=== PATIENT | male | born 1965 | race Two or more races ===

== ENCOUNTER 2018-10-28 13:18 | Inpatient (IN) | payer MEDICARE, MEDICAID ==
[~2018-10-28] VITALS: Ht 160 cm; Wt 60.8 kg
--- NOTE | 2018-10-28 13:37 | NUR ---
ED Nurse Note: patient biba from SNF c/o of dark red emesis, at time of arrival patient is not actively bleeding, also complains of 8/10 abdominal pain. patient is alert and oriented x4, states that he goes to dialysis MWF and hasnt gone for 2 days now.
[2018-10-28] MEDS ORDERED: Pantoprazole Inj IV ONE (13:45)
[2018-10-28 14:17] LABS: BASOPHILS % (AUTO) 1.7 % (0.0-2.0); EOSINOPHILS % (AUTO) 5.9 % (0.0-3.0); HEMOGLOBIN 10.4 G/DL (14.2-18.0); LYMPHOCYTES % (AUTO) 11.5 % (20.0-45.0); MEAN CORPUSCULAR VOLUME 92 FL (80-99); MONOCYTES % (AUTO) 10.3 % (1.0-10.0); NEUTROPHILS % (AUTO) 70.7 % (45.0-75.0); PLATELET COUNT 147 K/UL (150-450); RED BLOOD COUNT 3.56 M/UL (4.70-6.10); RED CELL DISTRIBUTION WIDTH 17.7 % (11.6-14.8); WHITE BLOOD COUNT 7.6 K/UL (4.8-10.8)
[2018-10-28 14:19] LABS: ANION GAP 10 mmol/L (5-15); BLOOD UREA NITROGEN 63 mg/dL (7-18); CALCIUM 8.8 MG/DL (8.5-10.1); CARBON DIOXIDE 30 MMOL/L (21-32); CHLORIDE 98 MMOL/L (98-107); CREATININE 4.8 MG/DL (0.55-1.30); POTASSIUM 4.4 MMOL/L (3.5-5.1); SODIUM 138 MMOL/L (136-145)
[2018-10-28 14:22] LABS: INR 1.3 (0.9-1.1)
[2018-10-28 14:32] LABS: ALANINE AMINOTRANSFERASE 39 U/L (12-78); ALBUMIN 2.9 G/DL (3.4-5.0); ALBUMIN/GLOBULIN RATIO 0.5 (1.0-2.7); ALKALINE PHOSPHATASE 1633 U/L (46-116); ASPARTATE AMINO TRANSFERASE 37 U/L (15-37); BILIRUBIN,TOTAL 1.7 MG/DL (0.2-1.0)
[2018-10-28 14:33] LABS: BILIRUBIN,DIRECT 1.4 MG/DL (0.0-0.3)
[2018-10-28 14:54] LABS: BILIRUBIN, URINE NEGATIVE (NEGATIVE); GLUCOSE, URINE (UA) NEGATIVE (NEGATIVE); KETONES,URINE NEGATIVE (NEGATIVE); LEUKOCYTE ESTERASE ,URINE 1+ (NEGATIVE); NITRITE,URINE NEGATIVE (NEGATIVE); PH,URINE 9 (4.5-8.0); PROTEIN,URINE 3+ (NEGATIVE); UROBILINOGEN,URINE NORMAL MG/DL (0.0-1.0)
--- NOTE | 2018-10-28 15:00 | Emergency Room Report ---
History of Present Illness General Chief Complaint: Vomiting Source: Patient, EMS Present Illness HPI 53 yo M presents to ED c/o vomiting. coming from SNF with coffee ground emesis x 1 day. h/o ESRD on dialysis. patient denies chest pain, SOB. Denies abdominal pain. denies blood in stool. no other aggravating or relieving factors. denies any other associated symptoms. Allergies: Coded Allergies: No Known Allergies (Unverified , 10/28/18) Patient History Past Medical History: DM, HTN, CVA/TIA, renal disease, dialysis Past Surgical History: none Pertinent Family History: none Social History: Denies: smoking, alcohol use, drug use Immunizations: UTD Reviewed Nursing Documentation: PMH: Agreed; PSxH: Agreed Nursing Documentation-PMH Hx Hypertension: Yes Hx Diabetes: Yes Hx Gastrointestinal Problems: Yes Hx Dialysis: Yes - mwf Hx Cerebrovascular Accident: Yes Review of Systems All Other Systems: negative except mentioned in HPI Physical Exam Vital Signs Date Time Temp Pulse Resp B/P (MAP) Pulse Ox O2 Delivery O2 Flow Rate FiO2 10/28/18 13:22 98.1 50 18 166/72 95 Room Air Sp02 EP Interpretation: reviewed, normal General Appearance: no apparent distress, alert, GCS 15, non-toxic Head: normocephalic, atraumatic Eyes: bilateral eye normal inspection, bilateral eye PERRL ENT: hearing grossly normal, normal pharynx, no angioedema, normal voice Neck: full range of motion, supple/symm/no masses Respiratory: chest non-tender, lungs clear, normal breath sounds, speaking full sentences Cardiovascular #1: regular rate, rhythm, no edema Cardiovascular #2: 2+ carotid (R), 2+ carotid (L), 2+ radial (R), 2+ radial (L) , 2+ dorsalis pedis (R), 2+ dorsalis pedis (L) Gastrointestinal: normal bowel sounds, soft, non-distended, no guarding, no rebound, distended Rectal: deferred Genitourinary: normal inspection, no CVA tenderness Musculoskeletal: back normal, gait/station normal, normal range of motion, non- tender Neurologic: alert, oriented x3, responsive, motor strength/tone normal, sensory intact, speech normal Psychiatric: judgement/insight normal, memory normal, mood/affect normal, no suicidal/homicidal ideation Reflexes: 3+ bicep (R), 3+ bicep (L), 3+ tricep (R), 3+ tricep (L), 3+ knee (R) , 3+ knee (L) Skin: normal color, no rash, warm/dry, well hydrated Lymphatic: no adenopathy Medical Decision Making Diagnostic Impression: Primary Impression: UGIB (upper gastrointestinal bleed) Additional Impression: ESRD on dialysis ER Course Hospital Course 53 year-old M presents to ED with coffee ground emesis. h/o ERSD Differential diagnoses include: UGIB, LGIB, hemorrhoids Clinical course Patient placed on stretcher. gambling monitor. After initial history and physical I ordered labs, EKG, zofran, protonix Labs - no leukocytosis, Hb/Hct stable. BUN/Cr elevated. EKG - sinus bradycardia, no acute ischemic changes interpreted by me given small IVF bolus. no additonal episodes of emesis here Case discussed with Dr. Ruvalcaba and he agreed to accept the patient to his service for further care and support I feel this is a highly complex case requiring extensive working including EKG/ Rhythm strip, Xray/CT/US, Blood/urine lab work, repeat exams while in ED, and administration of strong opiates/narcotics for pain control, admission to hospital or close patient follow up. Diagnosis - UGIB, ESRD on dialysis Patient admitted to telemetry in serious condition Labs Test 10/28/18 13:45 10/28/18 14:20 White Blood Count 7.6 K/UL (4.8-10.8) Red Blood Count 3.56 M/UL (4.70-6.10) Hemoglobin 10.4 G/DL (14.2-18.0) Hematocrit 33.0 % (42.0-52.0) Mean Corpuscular Volume 92 FL (80-99) Mean Corpuscular Hemoglobin 29.2 PG (27.0-31.0) Mean Corpuscular Hemoglobin Concent 31.6 G/DL (32.0-36.0) Red Cell Distribution Width 17.7 % (11.6-14.8) Platelet Count 147 K/UL (150-450) Mean Platelet Volume 8.3 FL (6.5-10.1) Neutrophils (%) (Auto) 70.7 % (45.0-75.0) Lymphocytes (%) (Auto) 11.5 % (20.0-45.0) Monocytes (%) (Auto) 10.3 % (1.0-10.0) Eosinophils (%) (Auto) 5.9 % (0.0-3.0) Basophils (%) (Auto) 1.7 % (0.0-2.0) Prothrombin Time 13.5 SEC (9.30-11.50) Prothromb Time International Ratio 1.3 (0.9-1.1) Activated Partial Thromboplast Time 35 SEC (23-33) Sodium Level 138 MMOL/L (136-145) Potassium Level 4.4 MMOL/L (3.5-5.1) Chloride Level 98 MMOL/L (98-107) Carbon Dioxide Level 30 MMOL/L (21-32) Anion Gap 10 mmol/L (5-15) Blood Urea Nitrogen 63 mg/dL (7-18) Creatinine 4.8 MG/DL (0.55-1.30) Estimat Glomerular Filtration Rate 15.5 mL/min (>60) Glucose Level 222 MG/DL (74-106) Calcium Level 8.8 MG/DL (8.5-10.1) Total Bilirubin 1.7 MG/DL (0.2-1.0) Direct Bilirubin 1.4 MG/DL (0.0-0.3) Aspartate Amino Transf (AST/SGOT) 37 U/L (15-37) Alanine Aminotransferase (ALT/SGPT) 39 U/L (12-78) Alkaline Phosphatase 1633 U/L (46-116) Total Protein 8.2 G/DL (6.4-8.2) Albumin 2.9 G/DL (3.4-5.0) Globulin 5.3 g/dL Albumin/Globulin Ratio 0.5 (1.0-2.7) Lipase 59 U/L (73-393) EKG Diagnostic Results Rate: bradycardiac Rhythm: NSR ST Segments: no acute changes ASA given to the pt in ED: No Rhythm Strip Diag. Results EP Interpretation: yes Rhythm: NSR, no PVC's, no ectopy Last Vital Signs Date Time Temp Pulse Resp B/P (MAP) Pulse Ox O2 Delivery O2 Flow Rate FiO2 10/28/18 13:22 98.1 50 18 166/72 95 Room Air Status: improved Disposition: ADMITTED INPATIENT Condition: Serious Referrals: Ruvalcaba,Tay MD (PCP) Benedicto Merrill MD Oct 28, 2018 15:00
[2018-10-28 15:02] LABS: APPEARANCE,URINE SLIGHTLY CLOUDY; COLOR,URINE YELLOW
[2018-10-28 15:29] VITALS: BP 126/60
--- NOTE | 2018-10-28 15:30 | NUR ---
ED Nurse Note: report given to SpenserRN
--- NOTE | 2018-10-28 15:35 | NUR ---
NURSE NOTES: Received report from CHASE Weaver from ED. And asked for Meds recon.
--- NOTE | 2018-10-28 15:55 | NUR ---
NURSE NOTES: Patient is transferred from ED. Patient is in stable condition. Alert and oriented X4. No acute distress/SOB noted. Patient complains of ABD pain 3/10. Left hand dry scabs noted. Otherwise skin intact. Will continue plan of care.
[2018-10-28 16:00] VITALS: BP 132/65
--- NOTE | 2018-10-28 16:10 | NUR ---
NURSE NOTES: Meds recon has not done at ED.
--- NOTE | 2018-10-28 16:10 | GI Initial Consult Note ---
History of Present Illness General Date patient seen: Oct 28, 2018 Time patient seen: 16:04 Reason for Hospitalization: Vomiting Referring physician: GRISELDA MELENDEZ Reason for Consultation: UGIB Present Illness HPI 53 yo M presents to ED c/o vomiting. coming from SNF with coffee ground emesis x 1 day. h/o ESRD on dialysis. patient denies chest pain, SOB. Denies abdominal pain. denies blood in stool. no other aggravating or relieving factors. denies any other associated symptoms. GI consulted for upper GI bleed patient seen, awake alert and oriented times x 4 no apparent distress. Patient reported that he had a few episodes of emesis which he noted as coffee grounds and also bright red. The patient has a history of cerebral infarction, hypertension, end-stage renal disease, diabetes mellitus, chronic pain syndrome, muscle weakness generalized, GERD, esophagitis and hyperlipidemia. Patient presents today with reported upper GI bleed. Noted at the patient has severe abdominal distention. Labs reviewed; noted to have a normocytic anemia, hyperbilirubinemia and elevated alkaline phosphatase. Unknown history of endoscopic colonoscopy at this time. Allergies: Coded Allergies: No Known Allergies (Unverified , 10/28/18) Patient History Limited by: medical condition History Provided By: Patient, Medical Record PMH Narrative Past Medical History: DM, HTN, CVA/TIA, renal disease, dialysis Past Surgical History: none Pertinent Family History: none Social History: Denies: smoking, alcohol use, drug use Immunizations: UTD Reviewed Nursing Documentation: PMH: Agreed; PSxH: Agreed Nursing Documentation-PMH Hx Hypertension: Yes Hx Diabetes: Yes Hx Gastrointestinal Problems: Yes Hx Dialysis: Yes - [facility] Hx Cerebrovascular Accident: Yes Social History: Denies: smoking, alcohol use, drug use, other Review of Systems All Other Systems: negative except mentioned in HPI Physical Exam Vital Signs Date Time Temp Pulse Resp B/P (MAP) Pulse Ox O2 Delivery O2 Flow Rate FiO2 10/28/18 13:22 98.1 50 18 166/72 95 Room Air Sp02 EP Interpretation: reviewed, normal Labs Laboratory Tests Test 10/28/18 13:45 10/28/18 14:20 White Blood Count 7.6 K/UL (4.8-10.8) Red Blood Count 3.56 M/UL (4.70-6.10) L Hemoglobin 10.4 G/DL (14.2-18.0) L Hematocrit 33.0 % (42.0-52.0) L Mean Corpuscular Volume 92 FL (80-99) Mean Corpuscular Hemoglobin 29.2 PG (27.0-31.0) Mean Corpuscular Hemoglobin Concent 31.6 G/DL (32.0-36.0) L Red Cell Distribution Width 17.7 % (11.6-14.8) H Platelet Count 147 K/UL (150-450) L Mean Platelet Volume 8.3 FL (6.5-10.1) Neutrophils (%) (Auto) 70.7 % (45.0-75.0) Lymphocytes (%) (Auto) 11.5 % (20.0-45.0) L Monocytes (%) (Auto) 10.3 % (1.0-10.0) H Eosinophils (%) (Auto) 5.9 % (0.0-3.0) H Basophils (%) (Auto) 1.7 % (0.0-2.0) Prothrombin Time 13.5 SEC (9.30-11.50) H Prothromb Time International Ratio 1.3 (0.9-1.1) H Activated Partial Thromboplast Time 35 SEC (23-33) H Sodium Level 138 MMOL/L (136-145) Potassium Level 4.4 MMOL/L (3.5-5.1) Chloride Level 98 MMOL/L (98-107) Carbon Dioxide Level 30 MMOL/L (21-32) Anion Gap 10 mmol/L (5-15) Blood Urea Nitrogen 63 mg/dL (7-18) H Creatinine 4.8 MG/DL (0.55-1.30) H Estimat Glomerular Filtration Rate 15.5 mL/min (>60) Glucose Level 222 MG/DL (74-106) H Calcium Level 8.8 MG/DL (8.5-10.1) Total Bilirubin 1.7 MG/DL (0.2-1.0) H Direct Bilirubin 1.4 MG/DL (0.0-0.3) H Aspartate Amino Transf (AST/SGOT) 37 U/L (15-37) Alanine Aminotransferase (ALT/SGPT) 39 U/L (12-78) Alkaline Phosphatase 1633 U/L (46-116) H Total Protein 8.2 G/DL (6.4-8.2) Albumin 2.9 G/DL (3.4-5.0) L Globulin 5.3 g/dL Albumin/Globulin Ratio 0.5 (1.0-2.7) L Lipase 59 U/L (73-393) L Urine Color Yellow Urine Appearance Slightly cloudy Urine pH 9 (4.5-8.0) Urine Specific [place] 1.015 (1.005-1.035) Urine Protein 3+ (NEGATIVE) H Urine Glucose (UA) Negative (NEGATIVE) Urine Ketones Negative (NEGATIVE) Urine Blood Negative (NEGATIVE) Urine Nitrite Negative (NEGATIVE) Urine Bilirubin Negative (NEGATIVE) Urine Urobilinogen Normal MG/DL (0.0-1.0) Urine Leukocyte Esterase 1+ (NEGATIVE) H Urine RBC 0-2 /HPF (0 - 0) H Urine WBC 2-4 /HPF (0 - 0) Urine Squamous Epithelial Cells Occasional /LPF Urine Bacteria Few /HPF (NONE) General Appearance: well appearing, no apparent distress, alert Head: normocephalic EENT: PERRL/EOMI, normal ENT inspection Neck: supple Respiratory: normal breath sounds, no respiratory distress Cardiovascular: normal rate Gastrointestinal: normal inspection, non tender, soft, normal bowel sounds, distended Rectal: deferred Genitourinary: deferred Musculoskeletal: normal inspection, back normal Neurologic: normal inspection, alert, oriented x3, responsive Psychiatric: normal inspection, judgement/insight normal, memory normal Skin: normal inspection, normal color, no rash, warm/dry, palpation normal, well hydrated Lymphatic: normal inspection, no adenopathy GI: Plan Problems: (1) Abdominal distension (2) UGIB (upper gastrointestinal bleed) (3) Anemia (4) ESRD on dialysis Plan EGD to be scheduled tomorrow. -Hold all blood thinners tonight Maintain n.p.o. plus mild IV fluid hydration Obtain abdominal ultrasound anemia work up OB stool r/o GI bleed monitor H&H, prn transfusions bowel regime ppi fu labs We will follow with additional recommendations post procedure Discussed with Dr. Don. Thank you for this patient referral, we will follow. Reji Sherman NP Oct 28, 2018 16:10
[2018-10-28] MEDS ORDERED: Isovue-300 100ml vial INJ PRN (16:15)
[2018-10-28] MEDS ORDERED: Gastrograffin 30ml ORAL PRN (16:15)
[2018-10-28] MEDS ORDERED: ACETAMINOPHEN325 M1 ORAL (16:17)
[2018-10-28] MEDS ORDERED: CAPTOPRIL50 MG PO (16:18)
[2018-10-28] MEDS ORDERED: COREG25 MG ORAL (16:19)
[2018-10-28] MEDS ORDERED: LANTUS5 UNITS SUBQ (16:30)
[2018-10-28] MEDS ORDERED: SIMVASTATIN20 MG ORAL (16:30)
[2018-10-28] MEDS ORDERED: ELIQUIS2.5 MG PO (16:30)
[2018-10-28] MEDS ORDERED: COLACE100 MG/10 ORAL (16:30)
[2018-10-28] MEDS ORDERED: FAMOTIDINE20 MG ORAL (16:30)
[2018-10-28] MEDS ORDERED: NEURONTIN300 MG ORAL (16:30)
[2018-10-28] MEDS ORDERED: LOSARTAN POTAS100 MG ORAL (16:30)
[2018-10-28] MEDS ORDERED: RENAGEL800 MG ORAL (16:30)
[2018-10-28] MEDS ORDERED: NEOMYCIN SULFA500 MG ORAL (16:30)
[2018-10-28] MEDS ORDERED: LYRICA50 MG ORAL (16:30)
[2018-10-28] MEDS ORDERED: NIFEDIPINE ER90 M3 ORAL (16:30)
[2018-10-28] MEDS ORDERED: FERROUS SULFAT325 M2 ORAL (16:30)
[2018-10-28] MEDS ORDERED: METOLAZONE5 MG PO (16:30)
[2018-10-28] MEDS ORDERED: RENA-VITE TABL0.8 M1 PO (16:30)
[2018-10-28] MEDS ORDERED: TRAMADOL HCL50 MG ORAL (16:30)
[2018-10-28] MEDS ORDERED: HUMALOG100 UNIT/3 SUBQ (16:30)
--- NOTE | 2018-10-28 16:42 | NUR ---
NURSE NOTES: Received admission orders from Dr. Ruvalcaba.
--- NOTE | 2018-10-28 16:58 | NUR ---
NURSE NOTES: Seen by Dr. Fong.
[2018-10-28] MEDS ORDERED: Albuterol/Ipratropium 3ml neb HHN PRN (17:00)
[2018-10-28] MEDS ORDERED: traMADol 50mg tab ORAL PRN (17:00)
--- NOTE | 2018-10-28 17:08 | Consultation ---
Consult Note Consult Note asked to eval for dialysis management 53 yo M presents to ED c/o vomiting. coming from SNF with coffee ground emesis x 1 day. h/o ESRD on dialysis. patient denies chest pain, SOB. Denies abdominal pain. denies blood in stool. no other aggravating or relieving factors. denies any other associated symptoms. No Known Allergies (Unverified , 10/28/18) Past Medical History: DM, HTN, CVA/TIA, renal disease, dialysis Hx Hypertension: Yes Hx Diabetes: Yes Hx Gastrointestinal Problems: Yes Hx Dialysis: Yes - [facility]wf Hx Cerebrovascular Accident: Yes interviewed examined data reviewed Assessment/Plan ESRD Upper GI Bleed Abdominal distension DM HTN Anemia h/o CVA Bradycardia per GI NPO IV Protonix, Reglan Monitor H&H no need for HD today Stop HR lowering meds per orders Eliazar Fong MD Oct 28, 2018 17:08
[2018-10-28] MEDS: Neomycin Sulfate 500mg Tab ORAL SCH (17:59)
[2018-10-28] MEDS: Lyrica 50mg cap ORAL SCH (17:59)
[2018-10-28] MEDS ORDERED: Captopril 25mg tab ORAL SCH (18:00)
[2018-10-28] MEDS ORDERED: Metoclopramide 10mg/2ml Inj IVP PRN (19:15)
--- NOTE | 2018-10-28 19:16 | NUR ---
HAND-OFF: Report given to CHASE Corea. Patient is in stable condition. No acute distress/SOB noted. Endorsed plan of care.
--- NOTE | 2018-10-28 19:20 | NUR ---
NURSE NOTES: Received report from CHASE Warner. Patient awake, alert and verbally responsive. No SOB, no acute distress, c/o pain on abd area 2/10, tolerable per pt. IV site on R AC #20, patent and intact. HD access at L arm, dry and intact, no bleeding noted. Bed at lowest position, call light within reach. Will continue plan of care.
[2018-10-28] MEDS: D5 1/2NS 1,000 ML IV SCH (19:46)
[2018-10-28 20:00] VITALS: BP 144/65
[2018-10-28] MEDS: Pantoprazole Inj IVP SCH (20:30)
[2018-10-28] MEDS: NovoLOG Insulin Flexpen SUBQ SCH (20:30)
[2018-10-28] MEDS ORDERED: Carvedilol 25mg Tab ORAL SCH (21:00)
[2018-10-28] MEDS ORDERED: Levemir Flexpen SUBQ SCH (21:00)
[2018-10-29] VITALS: BP 139/68
--- NOTE | 2018-10-29 03:54 | NUR ---
NURSE NOTES: Patient asleep, breathing even and unlabored, no s/sx of pain nor any discomfort at this time. No episodes of vomiting/nausea noted at this time. Bed at lowest position, call light within reach. Will continue to monitor.
[2018-10-29] MEDS: NovoLOG Insulin Flexpen SUBQ SCH ×4 (06:17→21:31)
[2018-10-29 06:52] LABS: INR 1.3 (0.9-1.1)
[2018-10-29 07:02] LABS: BASOPHILS % (AUTO) 1.1 % (0.0-2.0); EOSINOPHILS % (AUTO) 11.8 % (0.0-3.0); HEMATOCRIT 28.7 % (42.0-52.0); HEMOGLOBIN 9.2 G/DL (14.2-18.0); LYMPHOCYTES % (AUTO) 19.9 % (20.0-45.0); MEAN CORPUSCULAR VOLUME 92 FL (80-99); MONOCYTES % (AUTO) 5.6 % (1.0-10.0); NEUTROPHILS % (AUTO) 61.6 % (45.0-75.0); PLATELET COUNT 152 K/UL (150-450); RED BLOOD COUNT 3.13 M/UL (4.70-6.10); RED CELL DISTRIBUTION WIDTH 17.6 % (11.6-14.8); WHITE BLOOD COUNT 6.1 K/UL (4.8-10.8)
--- NOTE | 2018-10-29 07:10 | NUR ---
HAND-OFF: Report given to CHASE Warner. Endorsed plan of care.
--- NOTE | 2018-10-29 07:11 | NUR ---
NURSE NOTES: Received report from CHASE Corea. Patient is in stable condition. No acute distress/SOB noted. Patient still have abd pain 2/10 which is tolerable. Will continue plan of care.
[2018-10-29 07:55] LABS: ALANINE AMINOTRANSFERASE 33 U/L (12-78); ALBUMIN 2.7 G/DL (3.4-5.0); ALBUMIN/GLOBULIN RATIO 0.6 (1.0-2.7); ALKALINE PHOSPHATASE 1393 U/L (46-116); ANION GAP 10 mmol/L (5-15); ASPARTATE AMINO TRANSFERASE 32 U/L (15-37); BILIRUBIN,TOTAL 1.6 MG/DL (0.2-1.0); BLOOD UREA NITROGEN 69 mg/dL (7-18); CALCIUM 8.7 MG/DL (8.5-10.1); CARBON DIOXIDE 27 MMOL/L (21-32); CHLORIDE 100 MMOL/L (98-107); CHOLESTEROL 115 MG/DL (< 200); CREATININE 4.8 MG/DL (0.55-1.30); HDL CHOLESTEROL 25 MG/DL (40-60); PHOSPHORUS 5.9 MG/DL (2.5-4.9); POTASSIUM 5.2 MMOL/L (3.5-5.1); SODIUM 137 MMOL/L (136-145); TRIGLYCERIDES 63 MG/DL (30-150)
[2018-10-29 07:56] LABS: BILIRUBIN,DIRECT 1.2 MG/DL (0.0-0.3)
[2018-10-29 08:00] VITALS: BP 172/71
[2018-10-29] MEDS: Lyrica 50mg cap ORAL SCH ×3 (08:21→17:09)
[2018-10-29] MEDS: Pantoprazole Inj IVP SCH ×2 (08:21→21:30)
[2018-10-29] MEDS: Neomycin Sulfate 500mg Tab ORAL SCH ×3 (08:22→17:09)
[2018-10-29] MEDS: Losartan 50mg tab ORAL SCH (08:22)
[2018-10-29] MEDS: Docusate 100mg cap ORAL SCH ×3 (08:23→17:09)
[2018-10-29] MEDS ORDERED: Sodium Polystyrene Sulfonate 15gm Powder ORAL SCH (08:30)
[2018-10-29 08:53] LABS: % IRON SATURATION 29 % (15-50); IRON 47 ug/dL (50-175); TOTAL IRON BINDING CAPACITY 162 ug/dL (250-450)
--- NOTE | 2018-10-29 08:59 | History and Physical Report ---
DATE OF ADMISSION: 10/28/2018 HISTORY OF PRESENT ILLNESS: This is a 53-year-old male, who came to the emergency room for having a coffee-grounds emesis and having melena for 2 days prior to admission. The patient is still feeling a [id number] abdominal pain and mild nausea but has been tolerating the diet. He has no fever or chills. PAST MEDICAL HISTORY: Significant for end-stage renal disease, hypertension, borderline diabetes, peripheral vascular disease, generalized weakness. MEDICATIONS: See the list. ALLERGY: NKA. FAMILY HISTORY: Noncontributory. SOCIAL HISTORY: The patient lives at shelter, mostly wheelchair bound. REVIEW OF SYSTEMS: Generalized weakness, recurrent abdominal pain and recurrent nausea and vomiting, generalized weakness, having mild leg edema. PHYSICAL EXAMINATION: GENERAL: This is an elderly male, who is sitting in the bed, feels okay, still complaining of mild abdominal pain intermittently. VITAL SIGNS: Blood pressure is 120/70; pulse 80; respirations 18 to 24; temperature, no fever; saturation 98%. SKIN: Diaphoretic. HEENT: NECK: No JVD. CHEST: Bilateral decreased breath sounds. Few crackles. CARDIOVASCULAR: Regular rhythm tachycardia. ABDOMEN: Soft. Positive bowel sounds. Nontender. Abdomen was distended and right upper quadrant tenderness. EXTREMITIES: A 1+ edema and flat foot. GENITOURINARY: Normal developed male. RECTAL: Done in the ER. LABORATORY AND DIAGNOSTIC DATA: Labs; white counts are normal. Hemoglobin 10, hematocrit 30, platelets are normal. Chemistry panel, BUN, and creatinine is elevated, glucose is borderline, and LFTs are high. Bilirubin is 1.7. ASSESSMENT: 1. Upper gastrointestinal bleed. 2. Melena. 3. Hematemesis. 4. End-stage renal disease. 5. Anemia. 6. Elevated LFTs. PLAN: 1. We will admit to telemetry bed. 2. Consider GI consult. 3. Also consider Nephrology consult for hemodialysis. 4. Monitor H and H. 5. Check stool occult blood 6. Alvaro Ruvalcaba M.D. DR: Candace JOB#: [id number] CC:
[2018-10-29] MEDS ORDERED: Docusate 100mg cap ORAL SCH (09:00)
[2018-10-29] MEDS ORDERED: Losartan 50mg tab ORAL SCH (09:00)
[2018-10-29] MEDS ORDERED: Pantoprazole Inj IVP SCH (09:00)
[2018-10-29] MEDS ORDERED: Nephrovite tab (Rena-Vite) ORAL SCH (09:00)
[2018-10-29 09:16] LABS: FERRITIN 1634 NG/ML (8-388)
[2018-10-29] MEDS ORDERED: Atropine Inj 1mg/10ml Syr IV PRN (09:30)
[2018-10-29] MEDS ORDERED: fentaNYL 100 mcg/2 mL IV PRN (09:30)
[2018-10-29] MEDS ORDERED: Midazolam 2mg/2ml Inj IVP PRN (09:30)
[2018-10-29] MEDS ORDERED: DiphenhydrAMINE 50mg/ml Inj IVP PRN (09:30)
--- NOTE | 2018-10-29 09:45 | Anethesia Preoperative Eval ---
Anesthesia Pre-op PMH/ROS General Date of Evaluation: Oct 29, 2018 Time of Evaluation: 09:37 Anesthesiologist: allison ASA Score: ASA 4 Mallampati Score Class I : Soft palate, uvula, fauces, pillars visible Class II: Soft palate, uvula, fauces visible Class III: Soft palate, base of uvula visible Class IV: Only hard plate visible Surgeon: fatuma Diagnosis: upper gi bleed Surgical Procedure: egd Anesthesia History: none Social History: current smoker Family History: no anesthesia problems Allergies: Coded Allergies: No Known Allergies (Unverified , 10/28/18) Medications: see eMAR Patient NPO?: Yes NPO Date: Oct 29, 2018 NPO Time: 07:30 Past Medical History Gastrointestinal/Genitourinary: Reports: ESRD, other - upper gi bleed, dialysis Neurologic/Psychiatric: Reports: CVA Endocrine: Reports: DM Anesthesia Pre-op Phys. Exam Physician Exam Last Vital Signs Date Time Temp Pulse Resp B/P (MAP) Pulse Ox O2 Delivery O2 Flow Rate FiO2 10/29/18 09:00 Room Air 10/29/18 08:22 52 172/71 10/29/18 08:00 97.7 20 93 10/28/18 20:27 21 Airway Exam MO: limited Neck: flexible TMD: 2fb ROM: limited Anesthesia Pre-op A/P Labs Hematology Test 10/28/18 13:45 10/29/18 06:00 White Blood Count 7.6 K/UL (4.8-10.8) 6.1 K/UL (4.8-10.8) Red Blood Count 3.56 M/UL (4.70-6.10) L 3.13 M/UL (4.70-6.10) L Hemoglobin 10.4 G/DL (14.2-18.0) L 9.2 G/DL (14.2-18.0) L Hematocrit 33.0 % (42.0-52.0) L 28.7 % (42.0-52.0) L Mean Corpuscular Volume 92 FL (80-99) 92 FL (80-99) Mean Corpuscular Hemoglobin 29.2 PG (27.0-31.0) 29.3 PG (27.0-31.0) Mean Corpuscular Hemoglobin Concent 31.6 G/DL (32.0-36.0) L 32.0 G/DL (32.0-36.0) Red Cell Distribution Width 17.7 % (11.6-14.8) H 17.6 % (11.6-14.8) H Platelet Count 147 K/UL (150-450) L 152 K/UL (150-450) Mean Platelet Volume 8.3 FL (6.5-10.1) 8.5 FL (6.5-10.1) Neutrophils (%) (Auto) 70.7 % (45.0-75.0) 61.6 % (45.0-75.0) Lymphocytes (%) (Auto) 11.5 % (20.0-45.0) L 19.9 % (20.0-45.0) L Monocytes (%) (Auto) 10.3 % (1.0-10.0) H 5.6 % (1.0-10.0) Eosinophils (%) (Auto) 5.9 % (0.0-3.0) H 11.8 % (0.0-3.0) H Basophils (%) (Auto) 1.7 % (0.0-2.0) 1.1 % (0.0-2.0) Reticulocyte Count Pending Coagulation Test 10/28/18 13:45 10/29/18 06:00 Prothrombin Time 13.5 SEC (9.30-11.50) H 13.6 SEC (9.30-11.50) H Prothromb Time International Ratio 1.3 (0.9-1.1) H 1.3 (0.9-1.1) H Activated Partial Thromboplast Time 35 SEC (23-33) H 34 SEC (23-33) H Chemistry Test 10/28/18 13:45 10/29/18 06:00 Sodium Level 138 MMOL/L (136-145) 137 MMOL/L (136-145) Potassium Level 4.4 MMOL/L (3.5-5.1) 5.2 MMOL/L (3.5-5.1) H Chloride Level 98 MMOL/L (98-107) 100 MMOL/L (98-107) Carbon Dioxide Level 30 MMOL/L (21-32) 27 MMOL/L (21-32) Anion Gap 10 mmol/L (5-15) 10 mmol/L (5-15) Blood Urea Nitrogen 63 mg/dL (7-18) H 69 mg/dL (7-18) H Creatinine 4.8 MG/DL (0.55-1.30) H 4.8 MG/DL (0.55-1.30) H Estimat Glomerular Filtration Rate 15.5 mL/min (>60) 12.8 mL/min (>60) Glucose Level 222 MG/DL (74-106) H 93 MG/DL (74-106) # Calcium Level 8.8 MG/DL (8.5-10.1) 8.7 MG/DL (8.5-10.1) Total Bilirubin 1.7 MG/DL (0.2-1.0) H 1.6 MG/DL (0.2-1.0) H Direct Bilirubin 1.4 MG/DL (0.0-0.3) H 1.2 MG/DL (0.0-0.3) H Aspartate Amino Transf (AST/SGOT) 37 U/L (15-37) 32 U/L (15-37) Alanine Aminotransferase (ALT/SGPT) 39 U/L (12-78) 33 U/L (12-78) Alkaline Phosphatase 1633 U/L (46-116) H 1393 U/L (46-116) H Total Protein 8.2 G/DL (6.4-8.2) 7.1 G/DL (6.4-8.2) Albumin 2.9 G/DL (3.4-5.0) L 2.7 G/DL (3.4-5.0) L Globulin 5.3 g/dL 4.4 g/dL Albumin/Globulin Ratio 0.5 (1.0-2.7) L 0.6 (1.0-2.7) L Lipase 59 U/L (73-393) L Hemoglobin A1c 6.3 % (4.3-6.0) H Phosphorus Level 5.9 MG/DL (2.5-4.9) H Magnesium Level 2.9 MG/DL (1.8-2.4) H Iron Level 47 ug/dL (50-175) L Total Iron Binding Capacity 162 ug/dL (250-450) L Percent Iron Saturation 29 % (15-50) Unsaturated Iron Binding 115 ug/dL (112-346) Ferritin 1634 NG/ML (8-388) H Triglycerides Level 63 MG/DL (30-150) Cholesterol Level 115 MG/DL (< 200) LDL Cholesterol 46 mg/dL (<100) HDL Cholesterol 25 MG/DL (40-60) L Cholesterol/HDL Ratio 4.6 (3.3-4.4) H Carcinoembryonic Antigen Pending Vitamin B12 Level 1290 PG/ML (193-986) H Folate 19.5 NG/ML (8.6-58.9) Thyroid Stimulating Hormone (TSH) 2.015 uiU/mL (0.358-3.740) Free Thyroxine 1.18 NG/DL (0.76-1.46) Risk Assessment & Plan Assessment: [email or web address] Plan: mac Status Change Before Surgery: No Pre-Antibiotics Drug: Vicenta Herrera MD Oct 29, 2018 09:45
[2018-10-29 12:00] VITALS: BP 186/75
--- NOTE | 2018-10-29 12:26 | Consultation ---
History of Present Illness General Date patient seen: Oct 29, 2018 Chief Complaint: Vomiting Referring physician: GRISELDA MELENDEZ Reason for Consultation: UGIB Present Illness Allergies: Coded Allergies: No Known Allergies (Unverified , 10/28/18) Medication History Scheduled Apixaban (Eliquis), 2.5 MG PO BID, (Reported) Captopril (Captopril), 50 MG PO BID, (Reported) Carvedilol (Coreg), 25 MG ORAL EVERY 12 HOURS, (Reported) Docusate Sodium (Docusate Sodium), 100 MG ORAL DAILY, (Reported) Famotidine (Famotidine), 20 MG ORAL DAILY, (Reported) Ferrous Sulfate (Ferrous Sulfate), 325 MG ORAL DAILY, (Reported) Folic Acid/Vitamin B Comp W-C (Gloria-Jerome Tablet), 0.8 MG PO QPM, (Reported) Gabapentin (Neurontin), 300 MG ORAL Q8HR, (Reported) Insulin Glargine (Lantus), 18 SUBQ BEDTIME, (Reported) Losartan Potassium (Losartan Potassium), 100 MG ORAL DAILY, (Reported) Metolazone (Metolazone), 5 MG PO DAILY, (Reported) Neomycin Sulfate (Neomycin Sulfate), 250 MG ORAL THREE TIMES A DAY, (Reported) Nifedipine Er* (Nifedipine Er*), 90 MG ORAL DAILY, (Reported) Pregabalin (Lyrica), 50 MG ORAL THREE TIMES A DAY, (Reported) Sevelamer Hcl (Renagel), 1,600 MG ORAL THREE TIMES A DAY, (Reported) Simvastatin (Zocor), 20 MG ORAL BEDTIME, (Reported) Scheduled PRN Acetaminophen* (Acetaminophen 325MG Tablet*), 650 MG ORAL Q4H PRN for Mild Pain (Pain Scale 1-3), (Reported) Tramadol Hcl* (Ultram*), 50 MG ORAL Q8HR PRN for Severe Pain (Pain Scale 7-10), (Reported) Miscellaneous Medications Insulin Lispro (Humalog), 0 SUBQ, (Reported) Patient History Healthcare decision maker N Resuscitation status Full Code Advanced Directive on File No Physical Exam Last 24 Hour Vital Signs Date Time Temp Pulse Resp B/P (MAP) Pulse Ox O2 Delivery O2 Flow Rate FiO2 10/29/18 12:23 186/75 10/29/18 09:00 Room Air 10/29/18 08:22 52 172/71 10/29/18 08:22 172/71 10/29/18 08:18 51 16 Room Air 21 10/29/18 08:00 52 10/29/18 08:00 97.7 52 20 172/71 (104) 93 10/29/18 04:00 47 10/29/18 00:00 97.6 46 18 139/68 (91) 97 10/29/18 00:00 46 10/28/18 21:00 Room Air 10/28/18 20:27 49 18 Room Air 21 10/28/18 20:00 46 10/28/18 20:00 97.4 48 17 144/65 (91) 97 10/28/18 17:59 132/65 10/28/18 17:20 Room Air 10/28/18 16:24 45 10/28/18 16:00 97.8 45 20 132/65 (87) 98 10/28/18 15:31 45 11 Room Air 10/28/18 15:30 98.3 73 18 110/69 99 Room Air 10/28/18 15:29 98.1 45 11 126/60 100 Room Air 10/28/18 13:22 98.1 50 18 166/72 95 Room Air Intake and Output 10/28/18 10/29/18 18:59 06:59 Intake Total 522 ml Balance 522 ml Intake Oral 60 ml IV Total 462 ml # Voids 1 Laboratory Tests Test 10/28/18 13:45 10/28/18 14:20 10/29/18 06:00 White Blood Count 7.6 K/UL (4.8-10.8) 6.1 K/UL (4.8-10.8) Red Blood Count 3.56 M/UL (4.70-6.10) L 3.13 M/UL (4.70-6.10) L Hemoglobin 10.4 G/DL (14.2-18.0) L 9.2 G/DL (14.2-18.0) L Hematocrit 33.0 % (42.0-52.0) L 28.7 % (42.0-52.0) L Mean Corpuscular Volume 92 FL (80-99) 92 FL (80-99) Mean Corpuscular Hemoglobin 29.2 PG (27.0-31.0) 29.3 PG (27.0-31.0) Mean Corpuscular Hemoglobin Concent 31.6 G/DL (32.0-36.0) L 32.0 G/DL (32.0-36.0) Red Cell Distribution Width 17.7 % (11.6-14.8) H 17.6 % (11.6-14.8) H Platelet Count 147 K/UL (150-450) L 152 K/UL (150-450) Mean Platelet Volume 8.3 FL (6.5-10.1) 8.5 FL (6.5-10.1) Neutrophils (%) (Auto) 70.7 % (45.0-75.0) 61.6 % (45.0-75.0) Lymphocytes (%) (Auto) 11.5 % (20.0-45.0) L 19.9 % (20.0-45.0) L Monocytes (%) (Auto) 10.3 % (1.0-10.0) H 5.6 % (1.0-10.0) Eosinophils (%) (Auto) 5.9 % (0.0-3.0) H 11.8 % (0.0-3.0) H Basophils (%) (Auto) 1.7 % (0.0-2.0) 1.1 % (0.0-2.0) Prothrombin Time 13.5 SEC (9.30-11.50) H 13.6 SEC (9.30-11.50) H Prothromb Time International Ratio 1.3 (0.9-1.1) H 1.3 (0.9-1.1) H Activated Partial Thromboplast Time 35 SEC (23-33) H 34 SEC (23-33) H Sodium Level 138 MMOL/L (136-145) 137 MMOL/L (136-145) Potassium Level 4.4 MMOL/L (3.5-5.1) 5.2 MMOL/L (3.5-5.1) H Chloride Level 98 MMOL/L (98-107) 100 MMOL/L (98-107) Carbon Dioxide Level 30 MMOL/L (21-32) 27 MMOL/L (21-32) Anion Gap 10 mmol/L (5-15) 10 mmol/L (5-15) Blood Urea Nitrogen 63 mg/dL (7-18) H 69 mg/dL (7-18) H Creatinine 4.8 MG/DL (0.55-1.30) H 4.8 MG/DL (0.55-1.30) H Estimat Glomerular Filtration Rate 15.5 mL/min (>60) 12.8 mL/min (>60) Glucose Level 222 MG/DL (74-106) H 93 MG/DL (74-106) # Calcium Level 8.8 MG/DL (8.5-10.1) 8.7 MG/DL (8.5-10.1) Total Bilirubin 1.7 MG/DL (0.2-1.0) H 1.6 MG/DL (0.2-1.0) H Direct Bilirubin 1.4 MG/DL (0.0-0.3) H 1.2 MG/DL (0.0-0.3) H Aspartate Amino Transf (AST/SGOT) 37 U/L (15-37) 32 U/L (15-37) Alanine Aminotransferase (ALT/SGPT) 39 U/L (12-78) 33 U/L (12-78) Alkaline Phosphatase 1633 U/L (46-116) H 1393 U/L (46-116) H Total Protein 8.2 G/DL (6.4-8.2) 7.1 G/DL (6.4-8.2) Albumin 2.9 G/DL (3.4-5.0) L 2.7 G/DL (3.4-5.0) L Globulin 5.3 g/dL 4.4 g/dL Albumin/Globulin Ratio 0.5 (1.0-2.7) L 0.6 (1.0-2.7) L Lipase 59 U/L (73-393) L Urine Color Yellow Urine Appearance Slightly cloudy Urine pH 9 (4.5-8.0) Urine Specific [place] 1.015 (1.005-1.035) Urine Protein 3+ (NEGATIVE) H Urine Glucose (UA) Negative (NEGATIVE) Urine Ketones Negative (NEGATIVE) Urine Blood Negative (NEGATIVE) Urine Nitrite Negative (NEGATIVE) Urine Bilirubin Negative (NEGATIVE) Urine Urobilinogen Normal MG/DL (0.0-1.0) Urine Leukocyte Esterase 1+ (NEGATIVE) H Urine RBC 0-2 /HPF (0 - 0) H Urine WBC 2-4 /HPF (0 - 0) Urine Squamous Epithelial Cells Occasional /LPF Urine Bacteria Few /HPF (NONE) Reticulocyte Count Pending Hemoglobin A1c 6.3 % (4.3-6.0) H Phosphorus Level 5.9 MG/DL (2.5-4.9) H Magnesium Level 2.9 MG/DL (1.8-2.4) H Iron Level 47 ug/dL (50-175) L Total Iron Binding Capacity 162 ug/dL (250-450) L Percent Iron Saturation 29 % (15-50) Unsaturated Iron Binding 115 ug/dL (112-346) Ferritin 1634 NG/ML (8-388) H Triglycerides Level 63 MG/DL (30-150) Cholesterol Level 115 MG/DL (< 200) LDL Cholesterol 46 mg/dL (<100) HDL Cholesterol 25 MG/DL (40-60) L Cholesterol/HDL Ratio 4.6 (3.3-4.4) H Carcinoembryonic Antigen Pending Vitamin B12 Level 1290 PG/ML (193-986) H Folate 19.5 NG/ML (8.6-58.9) Thyroid Stimulating Hormone (TSH) 2.015 uiU/mL (0.358-3.740) Free Thyroxine 1.18 NG/DL (0.76-1.46) Height (Feet): 5 Height (Inches): 3.00 Weight (Pounds): 141 Medications Current Medications Medications (Trade) Dose Ordered Sig/Jennifer Route PRN Reason Start Time Stop Time Status Last Admin Dose Admin Acetaminophen (Tylenol) 650 mg Q4H PRN ORAL Mild Pain/Temp > 100.5 10/28/18 17:00 11/27/18 16:59 Al Hydroxide/Mg Hydroxide (Mylanta) 15 ml Q1H PRN ORAL gi upset 10/29/18 09:30 10/29/18 18:00 Albuterol/ Ipratropium (Albuterol/ Ipratropium) 3 ml Q4H PRN HHN Shortness of Breath 10/28/18 17:00 11/02/18 16:59 Amlodipine Besylate (Norvasc) 5 mg DAILY ORAL 10/29/18 09:00 11/28/18 08:59 10/29/18 08:22 Atropine Sulfate (Atropine) 0.5 mg Q5M PRN IV bpm less than 45 10/29/18 09:30 10/29/18 18:00 Barium Sulfate (Readi-Cat 2) 450 ml NOW PRN ORAL Radiology Procedure 10/28/18 16:15 10/30/18 16:10 Dextrose (Dextrose 50%) 25 ml Q30M PRN IV Hypoglycemia 10/28/18 17:00 11/27/18 16:59 Dextrose (Dextrose 50%) 50 ml Q30M PRN IV Hypoglycemia 10/28/18 17:00 11/27/18 16:59 Dextrose/Sodium Chloride 1,000 ml @ 50 mls/hr Q20H IV 10/28/18 19:45 11/27/18 19:44 10/28/18 19:46 Diatrizoate Meglum/ Diatrizoate Sod (Gastrografin) 30 ml NOW PRN ORAL Radiology Procedure 10/28/18 16:15 10/30/18 16:14 Diphenhydramine HCl (Benadryl) 25 mg Q15M PRN IVP Itching 10/29/18 09:30 10/29/18 18:00 Docusate Sodium (Colace) 100 mg TID ORAL 10/29/18 09:00 11/28/18 08:59 10/29/18 12:22 Fentanyl Citrate (Sublimaze 100 mcg/2 mL) 25 mcg Q10M PRN IV Moderate Pain (Pain Scale 4-6) 10/29/18 09:30 10/29/18 18:00 Gabapentin (Neurontin) 300 mg Q8HR ORAL 10/28/18 22:00 11/27/18 21:59 10/29/18 05:43 Hydralazine HCl (Apresoline) 5 mg Q30M PRN IV SBP>160 OR___/DBP>90 OR___ 10/29/18 09:30 10/29/18 18:00 Hydralazine HCl (Apresoline) 10 mg Q4H PRN IV bp over 160 syst 10/28/18 19:15 11/27/18 19:14 10/29/18 12:23 Insulin Aspart (NovoLOG) BEFORE MEALS AND HS SUBQ 10/28/18 21:00 11/27/18 20:59 10/29/18 11:49 Iopamidol (Isovue-300 100ml) 100 ml NOW PRN INJ Radiology Procedure 10/28/18 16:15 10/30/18 16:14 Losartan Potassium (Cozaar) 100 mg DAILY ORAL 10/29/18 09:00 11/28/18 08:59 10/29/18 08:22 Metoclopramide HCl (Reglan) 10 mg Q6H PRN IVP Nausea & Vomiting 10/28/18 19:15 11/27/18 19:14 Midazolam HCl (Versed 2mg/2ml vial) 1 mg Q15M PRN IVP For Anxiety 10/29/18 09:30 10/29/18 18:00 Neomycin Sulfate (Neomycin Sulfate) 250 mg THREE TIMES A DAY ORAL 10/28/18 18:00 11/04/18 17:59 10/29/18 12:22 Ondansetron HCl (Zofran) 4 mg Q1H PRN IVP Nausea & Vomiting 10/29/18 09:30 10/29/18 18:00 Pantoprazole (Protonix) 40 mg EVERY 12 HOURS IVP 10/28/18 21:00 11/27/18 20:59 10/29/18 08:21 Pregabalin (Lyrica) 50 mg THREE TIMES A DAY ORAL 10/28/18 18:00 11/27/18 17:59 10/29/18 12:22 Sevelamer Carbonate (Renvela) 1,600 mg THREE TIMES A DAY ORAL 10/28/18 18:00 11/27/18 17:59 10/29/18 12:23 Tramadol HCl (Ultram) 50 mg Q8HR PRN ORAL Severe Breakthru Pain (>7) 10/28/18 17:00 11/04/18 16:59 Assessment/Plan Assessment/Plan Hematology Consultation Note Reason for consultation: UGIB, Anemia Reason for Hospitalization: Vomiting Referring physician: GRISELDA MELENDEZ DOS: 10/29/17 HPI 53 yo M presents to ED c/o vomiting. coming from SNF with coffee ground emesis x 1 day. h/o ESRD on dialysis. patient denies chest pain, SOB. Denies abdominal pain. denies blood in stool. no other aggravating or relieving factors. denies any other associated symptoms. GI consulted for upper GI bleed patient seen, awake alert and oriented times x 4 no apparent distress. Patient reported that he had a few episodes of emesis which he noted as coffee grounds and also bright red. The patient has a history of cerebral infarction, hypertension, end-stage renal disease, diabetes mellitus, chronic pain syndrome, muscle weakness generalized, GERD, esophagitis and hyperlipidemia. Patient presents today with reported upper GI bleed. Noted at the patient has severe abdominal distention. Labs reviewed; noted to have a normocytic anemia, hyperbilirubinemia and elevated alkaline phosphatase. Unknown history of endoscopic colonoscopy at this time. I have seen him in the past and he has been on epo All: nkda Limited by: medical condition History Provided By: Patient, Medical Record PMH Narrative Past Medical History: DM, HTN, CVA/TIA, renal disease, dialysis Past Surgical History: none Pertinent Family History: none Social History: Denies: smoking, alcohol use, drug use Immunizations: UTD Reviewed Nursing Documentation: PMH: Agreed; PSxH: Agreed Hx Diabetes: Yes Hx Gastrointestinal Problems: Yes Hx Dialysis: Yes - [facility] Hx Cerebrovascular Accident: Yes Social History: Denies: smoking, alcohol use, drug use, other All Other Systems: negative except mentioned in HPI PE: Vital Signs Last Vital Signs Date Time Temp Pulse Resp B/P (MAP) Pulse Ox O2 Delivery O2 Flow Rate FiO2 10/29/18 12:23 186/75 10/29/18 09:00 Room Air 10/29/18 08:22 52 10/29/18 08:18 16 21 10/29/18 08:00 97.7 93 Sp02 EP Interpretation: reviewed, normal Labs Laboratory Tests Test 10/28/18 13:45 10/28/18 14:20 White Blood Count 7.6 K/UL (4.8-10.8) Red Blood Count 3.56 M/UL (4.70-6.10) L Hemoglobin 10.4 G/DL (14.2-18.0) L Hematocrit 33.0 % (42.0-52.0) L Mean Corpuscular Volume 92 FL (80-99) Mean Corpuscular Hemoglobin 29.2 PG (27.0-31.0) Mean Corpuscular Hemoglobin Concent 31.6 G/DL (32.0-36.0) L Red Cell Distribution Width 17.7 % (11.6-14.8) H Platelet Count 147 K/UL (150-450) L Mean Platelet Volume 8.3 FL (6.5-10.1) Neutrophils (%) (Auto) 70.7 % (45.0-75.0) Lymphocytes (%) (Auto) 11.5 % (20.0-45.0) L Monocytes (%) (Auto) 10.3 % (1.0-10.0) H Eosinophils (%) (Auto) 5.9 % (0.0-3.0) H Basophils (%) (Auto) 1.7 % (0.0-2.0) Prothrombin Time 13.5 SEC (9.30-11.50) H Prothromb Time International Ratio 1.3 (0.9-1.1) H Activated Partial Thromboplast Time 35 SEC (23-33) H Sodium Level 138 MMOL/L (136-145) Potassium Level 4.4 MMOL/L (3.5-5.1) Chloride Level 98 MMOL/L (98-107) Carbon Dioxide Level 30 MMOL/L (21-32) Anion Gap 10 mmol/L (5-15) Blood Urea Nitrogen 63 mg/dL (7-18) H Creatinine 4.8 MG/DL (0.55-1.30) H Estimat Glomerular Filtration Rate 15.5 mL/min (>60) Glucose Level 222 MG/DL (74-106) H Calcium Level 8.8 MG/DL (8.5-10.1) Total Bilirubin 1.7 MG/DL (0.2-1.0) H Direct Bilirubin 1.4 MG/DL (0.0-0.3) H Aspartate Amino Transf (AST/SGOT) 37 U/L (15-37) Alanine Aminotransferase (ALT/SGPT) 39 U/L (12-78) Alkaline Phosphatase 1633 U/L (46-116) H Total Protein 8.2 G/DL (6.4-8.2) Albumin 2.9 G/DL (3.4-5.0) L Globulin 5.3 g/dL Albumin/Globulin Ratio 0.5 (1.0-2.7) L Lipase 59 U/L (73-393) L Urine Color Yellow Urine Appearance Slightly cloudy Urine pH 9 (4.5-8.0) Urine Specific [place] 1.015 (1.005-1.035) Urine Protein 3+ (NEGATIVE) H Urine Glucose (UA) Negative (NEGATIVE) Urine Ketones Negative (NEGATIVE) Urine Blood Negative (NEGATIVE) Urine Nitrite Negative (NEGATIVE) Urine Bilirubin Negative (NEGATIVE) Urine Urobilinogen Normal MG/DL (0.0-1.0) Urine Leukocyte Esterase 1+ (NEGATIVE) H Urine RBC 0-2 /HPF (0 - 0) H Urine WBC 2-4 /HPF (0 - 0) Urine Squamous Epithelial Cells Occasional /LPF Urine Bacteria Few /HPF (NONE) Physical Exam General Appearance: A+O x3, NAD HEENT: normocephalic, atraumatic Neck: non-tender, normal alignment Respiratory/Chest: chest wall non-tender, lungs clear Cardiovascular/Chest: normal peripheral pulses, normal rate Abdomen: normal bowel sounds, some minor ttp Extremities: normal range of motion Assessment and recs: # Anemia due to upper gi bleed -- intially present with abdominal distension, seen by gi --> as per gi, in regards to whether he needs a endsocopy --> anemia panel has been ordered and revieweed, ferritin of 1632, %sat 28% --> no evidence of hemolysis is noted --> trend hgb as required, 10-->9 range --> starte on a ppi # Anemia due ot kidney disease --> iron needed if ferritin is <500 or % sat <20% and it is sufficient at this --> continue on outpatient epogen sq --> trend hgb/hct # UGIB (upper gastrointestinal bleed) # ESRD on dialysis --> HD as per renal team The timing of this note does not necessarily reflect the time of the patient was seen Greatly appreciate consultation! Shan Chandra MD Oct 29, 2018 12:26
--- NOTE | 2018-10-29 12:55 | GI Progress Note ---
Assessment/Plan Problems: (1) Anemia ICD Codes: D64.9 - Anemia, unspecified SNOMED: 879770892 (2) UGIB (upper gastrointestinal bleed) ICD Codes: K92.2 - Gastrointestinal hemorrhage, unspecified SNOMED: 03229753 (3) Abdominal distension ICD Codes: R14.0 - Abdominal distension (gaseous) SNOMED: 84109486 (4) ESRD on dialysis ICD Codes: N18.6 - End stage renal disease; Z99.2 - Dependence on renal dialysis SNOMED: 797101969 Status: unchanged Status Narrative Discussed with Dr. Don Assessment/Plan EGD rescheduled until tomorrow. -Hold all blood thinners tonight Maintain n.p.o. plus mild IV fluid hydration fu CT AP anemia work up OB stool r/o GI bleed monitor H&H, prn transfusions bowel regime ppi fu labs We will follow with additional recommendations post procedure The patient was seen and examined at bedside and all new and available data was reviewed in the patients chart. I agree with the above findings, impression and plan. (Patient seen earlier today. Signature stamp does not reflect patient encounter time.). - Dannie Don MD Subjective Gastrointestinal/Abdominal: Reports: no symptoms Objective Last 24 Hour Vital Signs Date Time Temp Pulse Resp B/P (MAP) Pulse Ox O2 Delivery O2 Flow Rate FiO2 10/29/18 12:23 186/75 10/29/18 12:00 97.7 50 20 186/75 (112) 93 10/29/18 09:00 Room Air 10/29/18 08:22 52 172/71 10/29/18 08:22 172/71 10/29/18 08:18 51 16 Room Air 21 10/29/18 08:00 52 10/29/18 08:00 97.7 52 20 172/71 (104) 93 10/29/18 04:00 47 10/29/18 00:00 97.6 46 18 139/68 (91) 97 10/29/18 00:00 46 10/28/18 21:00 Room Air 10/28/18 20:27 49 18 Room Air 21 10/28/18 20:00 46 10/28/18 20:00 97.4 48 17 144/65 (91) 97 10/28/18 17:59 132/65 10/28/18 17:20 Room Air 10/28/18 16:24 45 10/28/18 16:00 97.8 45 20 132/65 (87) 98 10/28/18 15:31 45 11 Room Air 10/28/18 15:30 98.3 73 18 110/69 99 Room Air 10/28/18 15:29 98.1 45 11 126/60 100 Room Air 10/28/18 13:22 98.1 50 18 166/72 95 Room Air Intake and Output 10/28/18 10/29/18 18:59 06:59 Intake Total 522 ml Balance 522 ml Intake Oral 60 ml IV Total 462 ml # Voids 1 Laboratory Tests Test 10/28/18 13:45 10/28/18 14:20 10/29/18 06:00 White Blood Count 7.6 K/UL (4.8-10.8) 6.1 K/UL (4.8-10.8) Red Blood Count 3.56 M/UL (4.70-6.10) L 3.13 M/UL (4.70-6.10) L Hemoglobin 10.4 G/DL (14.2-18.0) L 9.2 G/DL (14.2-18.0) L Hematocrit 33.0 % (42.0-52.0) L 28.7 % (42.0-52.0) L Mean Corpuscular Volume 92 FL (80-99) 92 FL (80-99) Mean Corpuscular Hemoglobin 29.2 PG (27.0-31.0) 29.3 PG (27.0-31.0) Mean Corpuscular Hemoglobin Concent 31.6 G/DL (32.0-36.0) L 32.0 G/DL (32.0-36.0) Red Cell Distribution Width 17.7 % (11.6-14.8) H 17.6 % (11.6-14.8) H Platelet Count 147 K/UL (150-450) L 152 K/UL (150-450) Mean Platelet Volume 8.3 FL (6.5-10.1) 8.5 FL (6.5-10.1) Neutrophils (%) (Auto) 70.7 % (45.0-75.0) 61.6 % (45.0-75.0) Lymphocytes (%) (Auto) 11.5 % (20.0-45.0) L 19.9 % (20.0-45.0) L Monocytes (%) (Auto) 10.3 % (1.0-10.0) H 5.6 % (1.0-10.0) Eosinophils (%) (Auto) 5.9 % (0.0-3.0) H 11.8 % (0.0-3.0) H Basophils (%) (Auto) 1.7 % (0.0-2.0) 1.1 % (0.0-2.0) Prothrombin Time 13.5 SEC (9.30-11.50) H 13.6 SEC (9.30-11.50) H Prothromb Time International Ratio 1.3 (0.9-1.1) H 1.3 (0.9-1.1) H Activated Partial Thromboplast Time 35 SEC (23-33) H 34 SEC (23-33) H Sodium Level 138 MMOL/L (136-145) 137 MMOL/L (136-145) Potassium Level 4.4 MMOL/L (3.5-5.1) 5.2 MMOL/L (3.5-5.1) H Chloride Level 98 MMOL/L (98-107) 100 MMOL/L (98-107) Carbon Dioxide Level 30 MMOL/L (21-32) 27 MMOL/L (21-32) Anion Gap 10 mmol/L (5-15) 10 mmol/L (5-15) Blood Urea Nitrogen 63 mg/dL (7-18) H 69 mg/dL (7-18) H Creatinine 4.8 MG/DL (0.55-1.30) H 4.8 MG/DL (0.55-1.30) H Estimat Glomerular Filtration Rate 15.5 mL/min (>60) 12.8 mL/min (>60) Glucose Level 222 MG/DL (74-106) H 93 MG/DL (74-106) # Calcium Level 8.8 MG/DL (8.5-10.1) 8.7 MG/DL (8.5-10.1) Total Bilirubin 1.7 MG/DL (0.2-1.0) H 1.6 MG/DL (0.2-1.0) H Direct Bilirubin 1.4 MG/DL (0.0-0.3) H 1.2 MG/DL (0.0-0.3) H Aspartate Amino Transf (AST/SGOT) 37 U/L (15-37) 32 U/L (15-37) Alanine Aminotransferase (ALT/SGPT) 39 U/L (12-78) 33 U/L (12-78) Alkaline Phosphatase 1633 U/L (46-116) H 1393 U/L (46-116) H Total Protein 8.2 G/DL (6.4-8.2) 7.1 G/DL (6.4-8.2) Albumin 2.9 G/DL (3.4-5.0) L 2.7 G/DL (3.4-5.0) L Globulin 5.3 g/dL 4.4 g/dL Albumin/Globulin Ratio 0.5 (1.0-2.7) L 0.6 (1.0-2.7) L Lipase 59 U/L (73-393) L Urine Color Yellow Urine Appearance Slightly cloudy Urine pH 9 (4.5-8.0) Urine Specific [place] 1.015 (1.005-1.035) Urine Protein 3+ (NEGATIVE) H Urine Glucose (UA) Negative (NEGATIVE) Urine Ketones Negative (NEGATIVE) Urine Blood Negative (NEGATIVE) Urine Nitrite Negative (NEGATIVE) Urine Bilirubin Negative (NEGATIVE) Urine Urobilinogen Normal MG/DL (0.0-1.0) Urine Leukocyte Esterase 1+ (NEGATIVE) H Urine RBC 0-2 /HPF (0 - 0) H Urine WBC 2-4 /HPF (0 - 0) Urine Squamous Epithelial Cells Occasional /LPF Urine Bacteria Few /HPF (NONE) Reticulocyte Count Pending Hemoglobin A1c 6.3 % (4.3-6.0) H Phosphorus Level 5.9 MG/DL (2.5-4.9) H Magnesium Level 2.9 MG/DL (1.8-2.4) H Iron Level 47 ug/dL (50-175) L Total Iron Binding Capacity 162 ug/dL (250-450) L Percent Iron Saturation 29 % (15-50) Unsaturated Iron Binding 115 ug/dL (112-346) Ferritin 1634 NG/ML (8-388) H Triglycerides Level 63 MG/DL (30-150) Cholesterol Level 115 MG/DL (< 200) LDL Cholesterol 46 mg/dL (<100) HDL Cholesterol 25 MG/DL (40-60) L Cholesterol/HDL Ratio 4.6 (3.3-4.4) H Carcinoembryonic Antigen Pending Vitamin B12 Level 1290 PG/ML (193-986) H Folate 19.5 NG/ML (8.6-58.9) Thyroid Stimulating Hormone (TSH) 2.015 uiU/mL (0.358-3.740) Free Thyroxine 1.18 NG/DL (0.76-1.46) Height (Feet): 5 Height (Inches): 3.00 Weight (Pounds): 141 General Appearance: WD/WN, no apparent distress, alert Cardiovascular: normal rate Respiratory/Chest: normal breath sounds, no respiratory distress Abdominal Exam: normal bowel sounds, non tender, soft, other - Severe abdominal distention Extremities: normal range of motion, non-tender Reji Sherman NP Oct 29, 2018 12:55
[2018-10-29 13:25] VITALS: BP 166/73
--- NOTE | 2018-10-29 15:25 | NUR ---
NURSE NOTES: Patient came back from CT ABD/Pelvis and in stable condition. Asked Hector/COUNSELING SERVICES MANAGER if we can start diet. Keep NPO until CT result comes. Will continue plan of care.
[2018-10-29] MEDS: D5 1/2NS 1,000 ML IV SCH (15:32)
[2018-10-29 16:00] VITALS: BP 162/72
--- NOTE | 2018-10-29 16:03 | Diagnostic Imaging Report ---
Indication: Abdominal pain Technique: Continuous helical transaxial imaging of the abdomen and pelvis was obtained from the lung bases to the pubic symphysis during intravenous contrast administration. Coronal 2-D reformats were also obtained. Study obtained in a Siemens sensation [address] Automatic Exposure Control was utilized. Total Dose length Product (DLP): 722.[address] Dose Index Volume (CTDIvol): 13.45 mGy Comparison: None Findings: Compressive atelectasis is demonstrated at the right lung base associated with a right pleural effusion. Superimposed pneumonia is not excluded. The pleural effusion is complex with thickening of both visceral and parietal pleura. Hiatal hernia is present. The heart is enlarged. The liver is diffusely enlarged and the low attenuation consistent with fatty infiltration. Spleen is normal in size. There is moderate ascites. The gallbladder is contracted. Pancreas is grossly unremarkable. The adrenal glands and kidneys are unremarkable. There is no hydronephrosis. Moderate aortoiliac calcifications are present. Normal appendix is seen. No evidence of bowel obstruction. No free air identified. Moderate to severe thickening of the wall the urinary bladder noted. Anasarca demonstrated. Small retroperitoneal and mesenteric nodes are present. There may be wall thickening involving the rectosigmoid colon. IMPRESSION:c Moderate to severe thickening of the urinary bladder wall. Correlate for cystitis. Moderate ascites Hepatomegaly with fatty infiltration. Complex right pleural effusion with associated compressive atelectasis and/or pneumonia. Anasarca Small nodes in the retroperitoneum/mesentery, nonspecific. Hiatal hernia. The CT scanner at [facility] is accredited by the [employer] and the scans are performed using dose optimization techniques as appropriate to a performed exam including Automatic Exposure control.
--- NOTE | 2018-10-29 16:42 | NUR ---
CASE MANAGEMENT:REVIEW BIBA FROM [facility] CC; COFFEE GROUND EMESIS. PMH: ESRD ON HD SI: UGIB 98.0 50 18 166/72 95% ON RA BUN+63 CR+4.8 IS: IV ZOFRAN IV PROTONIX 1L NS BOLUS URINE REFLEX : TO MED/SURG PLAN: EGD INTERQUAL CRITERIA MET
--- NOTE | 2018-10-29 17:19 | Nephrology Progress Note ---
Assessment/Plan Problem List: (1) ESRD on dialysis (2) UGIB (upper gastrointestinal bleed) (3) Abdominal distension (4) Anemia (5) Diabetes mellitus Assessment ESRD Upper GI Bleed Abdominal distension DM HTN Anemia h/o CVA Bradycardia Plan per GI NPO IV Protonix, Reglan Monitor H&H no need for HD today Stop HR lowering meds per orders CT: Moderate to severe thickening of the urinary bladder wall. Correlate for cystitis. Moderate ascites Hepatomegaly with fatty infiltration. Complex right pleural effusion with associated compressive atelectasis and/or pneumonia. Anasarca Small nodes in the retroperitoneum/mesentery, nonspecific. Hiatal hernia. Objective Objective Last 24 Hour Vital Signs Date Time Temp Pulse Resp B/P (MAP) Pulse Ox O2 Delivery O2 Flow Rate FiO2 10/29/18 17:10 162/72 10/29/18 16:00 97.4 49 20 162/72 (102) 98 10/29/18 16:00 48 10/29/18 13:25 97.7 51 20 166/73 (104) 93 10/29/18 12:23 186/75 10/29/18 12:00 50 10/29/18 12:00 97.7 50 20 186/75 (112) 93 10/29/18 09:00 Room Air 10/29/18 08:22 52 172/71 10/29/18 08:22 172/71 10/29/18 08:18 51 16 Room Air 21 10/29/18 08:00 52 10/29/18 08:00 97.7 52 20 172/71 (104) 93 10/29/18 04:00 47 10/29/18 00:00 97.6 46 18 139/68 (91) 97 10/29/18 00:00 46 10/28/18 21:00 Room Air 10/28/18 20:27 49 18 Room Air 21 10/28/18 20:00 46 10/28/18 20:00 97.4 48 17 144/65 (91) 97 10/28/18 17:59 132/65 10/28/18 17:20 Room Air Intake and Output 10/28/18 10/29/18 19:00 07:00 Intake Total 522 ml Balance 522 ml Intake Oral 60 ml IV Total 462 ml # Voids 1 Laboratory Tests 10/29/18 06:00: White Blood Count 6.1, Red Blood Count 3.13L, Hemoglobin 9.2L, Hematocrit 28.7L , Mean Corpuscular Volume 92, Mean Corpuscular Hemoglobin 29.3, Mean Corpuscular Hemoglobin Concent 32.0, Red Cell Distribution Width 17.6H, Platelet Count 152, Mean Platelet Volume 8.5, Neutrophils (%) (Auto) 61.6, Lymphocytes (%) (Auto) 19.9L, Monocytes (%) (Auto) 5.6, Eosinophils (%) (Auto) 11.8H, Basophils (%) (Auto) 1.1, Reticulocyte Count 1.2, Prothrombin Time 13.6H , Prothromb Time International Ratio 1.3H, Activated Partial Thromboplast Time 34H, Sodium Level 137, Potassium Level 5.2H, Chloride Level 100, Carbon Dioxide Level 27, Anion Gap 10, Blood Urea Nitrogen 69H, Creatinine 4.8H, Estimat Glomerular Filtration Rate 12.8, Glucose Level 93#, Hemoglobin A1c 6.3H, Calcium Level 8.7, Phosphorus Level 5.9H, Magnesium Level 2.9H, Iron Level 47L, Total Iron Binding Capacity 162L, Percent Iron Saturation 29, Unsaturated Iron Binding 115, Ferritin 1634H, Total Bilirubin 1.6H, Direct Bilirubin 1.2H, Aspartate Amino Transf (AST/SGOT) 32, Alanine Aminotransferase (ALT/SGPT) 33, Alkaline Phosphatase 1393H, Total Protein 7.1, Albumin 2.7L, Globulin 4.4, Albumin/Globulin Ratio 0.6L, Triglycerides Level 63, Cholesterol Level 115, LDL Cholesterol 46, HDL Cholesterol 25L, Cholesterol/HDL Ratio 4.6H, Carcinoembryonic Antigen [Pending], Vitamin B12 Level 1290H, Folate 19.5, Thyroid Stimulating Hormone (TSH) 2.015, Free Thyroxine 1.18 Height (Feet): 5 Height (Inches): 3.00 Weight (Pounds): 141 Eliazar Fong MD Oct 29, 2018 17:19
--- NOTE | 2018-10-29 19:21 | NUR ---
HAND-OFF: Report given to CHASE Paul. Patient is in stable condition. Endorsed plan of care.
--- NOTE | 2018-10-29 19:22 | NUR ---
NURSE NOTES: Received report from Timmy STONE. Pt was resting in the bed AO x4 and library monitor on. Call light is within reach and bed in the lowest position. Endorsed that there are 2 procedures scheduled for 10/30/2018. NPO after midnight. Will continue to follow the plan of care.
[2018-10-29 20:00] VITALS: BP 153/69
--- NOTE | 2018-10-29 20:15 | Progress Note ---
DATE: 10/29/2018 SUBJECTIVE: The patient is a 53-year-old male, currently sitting in bed, comfortable, abdominal pain resolved. Hemoglobin dropped to . The patient otherwise feeling fine, was found ascites on stomach. OBJECTIVE: VITAL SIGNS: Stable. CHEST: Bilaterally decreased breath sounds. CARDIOVASCULAR: Regular rhythm. ABDOMEN: Soft. Positive fluid. EXTREMITIES: Trace edema and flat foot. GENITOURINARY: Deferred. LABORATORY DATA: Hemoglobin 9.2. ASSESSMENT: 1. Anemia. 2. Rule out GI bleed. 3. Ascites. 4. Cirrhosis. 5. End-stage renal disease. 6. Borderline diabetes. PLAN: 1. . 2. NPO tonight. 3. Going for EGD and ultrasound-guided paracentesis. 4. Continue current treatment. 5. GI is on the case. Alvaro Ruvalcaba M.D. DR: Candace JOB#: [id number] CC:
[2018-10-30] VITALS (10 sets, daily range): BP systolic 147–186; BP diastolic 64–79
[2018-10-30] MEDS: NovoLOG Insulin Flexpen SUBQ SCH ×4 (06:06→21:47)
--- NOTE | 2018-10-30 07:35 | NUR ---
HAND-OFF: Report given to Clarissa STONE.
--- NOTE | 2018-10-30 07:45 | NUR ---
NURSE NOTES: Received report from CHASE Crooks. Pt is sitting up in bed. Bed is in lowest position, side rails up X2, and call light is within reach. Will continue to monitor.
[2018-10-30 07:47] LABS: BASOPHILS % (AUTO) 1.5 % (0.0-2.0); EOSINOPHILS % (AUTO) 7.9 % (0.0-3.0); HEMATOCRIT 28.1 % (42.0-52.0); HEMOGLOBIN 8.9 G/DL (14.2-18.0); LYMPHOCYTES % (AUTO) 17.6 % (20.0-45.0); MEAN CORPUSCULAR VOLUME 92 FL (80-99); NEUTROPHILS % (AUTO) 66.1 % (45.0-75.0); PLATELET COUNT 153 K/UL (150-450); RED BLOOD COUNT 3.04 M/UL (4.70-6.10); RED CELL DISTRIBUTION WIDTH 17.8 % (11.6-14.8); WHITE BLOOD COUNT 7.2 K/UL (4.8-10.8)
[2018-10-30 08:12] LABS: INR 1.5 (0.9-1.1)
--- NOTE | 2018-10-30 08:30 | NUR ---
CASE MANAGEMENT:REVIEW 10/30/18 SI: GIB. ANEMIA. ASCITES. CIRRHOSIS ESRD 98.1 52 18 149/70 96% ON RA H/H-8.9/28.1 IS: NORVASC PO BID COLACE TID COZAAR PO QD IV PROTONIX Q12 LYRICA PO TID : TELEMETRY STATUS DCP: FROM [facility] PLAN: NPO S/P EGD US GUIDED PARACENTESIS FOR TODAY
[2018-10-30 08:36] LABS: ALANINE AMINOTRANSFERASE 28 U/L (12-78); ALBUMIN 2.4 G/DL (3.4-5.0); ALBUMIN/GLOBULIN RATIO 0.5 (1.0-2.7); ALKALINE PHOSPHATASE 1326 U/L (46-116); ANION GAP 12 mmol/L (5-15); ASPARTATE AMINO TRANSFERASE 30 U/L (15-37); BILIRUBIN,TOTAL 1.3 MG/DL (0.2-1.0); BLOOD UREA NITROGEN 75 mg/dL (7-18); CALCIUM 8.3 MG/DL (8.5-10.1); CARBON DIOXIDE 24 MMOL/L (21-32); CHLORIDE 97 MMOL/L (98-107); CREATININE 5.7 MG/DL (0.55-1.30); SODIUM 133 MMOL/L (136-145)
[2018-10-30 08:38] LABS: BILIRUBIN,DIRECT 0.9 MG/DL (0.0-0.3)
[2018-10-30 08:45] LABS: PHOSPHORUS 6.3 MG/DL (2.5-4.9)
[2018-10-30] MEDS: Pantoprazole Inj IVP SCH ×2 (09:00→21:46)
[2018-10-30] MEDS: Lyrica 50mg cap ORAL SCH ×3 (09:00→17:26)
[2018-10-30] MEDS: Neomycin Sulfate 500mg Tab ORAL SCH ×3 (09:00→17:26)
[2018-10-30] MEDS: Docusate 100mg cap ORAL SCH ×3 (09:00→17:26)
[2018-10-30] MEDS: Losartan 50mg tab ORAL SCH (09:00)
--- NOTE | 2018-10-30 10:07 | Anethesia Preoperative Eval ---
Anesthesia Pre-op PMH/ROS General Date of Evaluation: Oct 30, 2018 Time of Evaluation: 10:05 Anesthesiologist: allison ASA Score: ASA 4 Mallampati Score Class I : Soft palate, uvula, fauces, pillars visible Class II: Soft palate, uvula, fauces visible Class III: Soft palate, base of uvula visible Class IV: Only hard plate visible Mallampati Classification: Class II Surgeon: fatuma Diagnosis: ugib Surgical Procedure: egd Anesthesia History: none Allergies: Coded Allergies: No Known Allergies (Unverified , 10/28/18) Patient NPO?: Yes NPO Date: Oct 29, 2018 NPO Time: 07:30 Past Medical History Cardiovascular: Reports: HTN Gastrointestinal/Genitourinary: Reports: ESRD Neurologic/Psychiatric: Reports: CVA Endocrine: Reports: DM Hematology/Immune: Reports: anemia Anesthesia Pre-op Phys. Exam Physician Exam Last Vital Signs Date Time Temp Pulse Resp B/P (MAP) Pulse Ox O2 Delivery O2 Flow Rate FiO2 10/30/18 08:00 98.0 48 18 163/64 (97) 100 10/29/18 21:00 Room Air 10/29/18 20:30 21 Constitutional: NAD Neurologic: CN 2-12 intact Cardiovascular: RRR Respiratory: CTA Gastrointestinal: S/NT/ND Airway Exam Mallampati Score: Class II MO: limited Neck: flexible TMD: 2fb ROM: limited Teeth: missing Anesthesia Pre-op A/P Labs Hematology Test 10/30/18 05:54 White Blood Count 7.2 K/UL (4.8-10.8) Red Blood Count 3.04 M/UL (4.70-6.10) L Hemoglobin 8.9 G/DL (14.2-18.0) L Hematocrit 28.1 % (42.0-52.0) L Mean Corpuscular Volume 92 FL (80-99) Mean Corpuscular Hemoglobin 29.2 PG (27.0-31.0) Mean Corpuscular Hemoglobin Concent 31.6 G/DL (32.0-36.0) L Red Cell Distribution Width 17.8 % (11.6-14.8) H Platelet Count 153 K/UL (150-450) Mean Platelet Volume 8.4 FL (6.5-10.1) Neutrophils (%) (Auto) 66.1 % (45.0-75.0) Lymphocytes (%) (Auto) 17.6 % (20.0-45.0) L Monocytes (%) (Auto) 7.0 % (1.0-10.0) Eosinophils (%) (Auto) 7.9 % (0.0-3.0) H Basophils (%) (Auto) 1.5 % (0.0-2.0) Coagulation Test 10/30/18 05:54 Prothrombin Time 15.6 SEC (9.30-11.50) H Prothromb Time International Ratio 1.5 (0.9-1.1) H Activated Partial Thromboplast Time 36 SEC (23-33) H Chemistry Test 10/30/18 05:54 Sodium Level 133 MMOL/L (136-145) L Potassium Level 5.0 MMOL/L (3.5-5.1) Chloride Level 97 MMOL/L (98-107) L Carbon Dioxide Level 24 MMOL/L (21-32) Anion Gap 12 mmol/L (5-15) Blood Urea Nitrogen 75 mg/dL (7-18) H Creatinine 5.7 MG/DL (0.55-1.30) H Estimat Glomerular Filtration Rate 10.5 mL/min (>60) Glucose Level 99 MG/DL (74-106) Uric Acid 6.9 MG/DL (2.6-7.2) Calcium Level 8.3 MG/DL (8.5-10.1) L Phosphorus Level 6.3 MG/DL (2.5-4.9) H Magnesium Level 2.6 MG/DL (1.8-2.4) H Total Bilirubin 1.3 MG/DL (0.2-1.0) H Direct Bilirubin 0.9 MG/DL (0.0-0.3) H Aspartate Amino Transf (AST/SGOT) 30 U/L (15-37) Alanine Aminotransferase (ALT/SGPT) 28 U/L (12-78) Alkaline Phosphatase 1326 U/L (46-116) H Total Protein 7.0 G/DL (6.4-8.2) Albumin 2.4 G/DL (3.4-5.0) L Globulin 4.6 g/dL Albumin/Globulin Ratio 0.5 (1.0-2.7) L Risk Assessment & Plan Assessment: asa4 Plan: mac Status Change Before Surgery: No Pre-Antibiotics Drug: Vicenta Herrera MD Oct 30, 2018 10:07
[2018-10-30] MEDS ORDERED: Midazolam 2mg/2ml Inj IVP PRN (10:15)
[2018-10-30] MEDS ORDERED: DiphenhydrAMINE 50mg/ml Inj IVP PRN (10:15)
[2018-10-30] MEDS ORDERED: fentaNYL 100 mcg/2 mL IV PRN (10:15)
[2018-10-30] MEDS ORDERED: Atropine Inj 1mg/10ml Syr IV PRN (10:15)
--- NOTE | 2018-10-30 10:25 | Pre-Procedure Note/Attestation ---
Pre-Procedure Note/Attestation Complete Prior to Procedure Planned Procedure: not applicable Procedure Narrative: egd Indications for Procedure Pre-Operative Diagnosis: anemia, GIB Attestation I attest that I discussed the nature of the procedure; its benefits; risks and complications; and alternatives (and the risks and benefits of such alternatives ), prior to the procedure, with the patient (or the patient's legal personnel representative). I attest that, if there was a reasonable possibility of needing a blood transfusion, the patient (or the patient's legal personnel representative) was given the [facility] standardized written summary, pursuant to the Carlos Tong Blood Safety Act ([place] Health and Safety Code # 1645, as amended). I attest that I re-evaluated the patient just prior to the surgery and that there has been no change in the patient's H&P, except as documented below: Dannie Don MD Oct 30, 2018 10:25
--- NOTE | 2018-10-30 10:51 | Diagnostic Imaging Report ---
Indications: Ascites Procedure: Informed consent obtained. Ultrasound used to localize optimal puncture site. Sterile prepping and draping over the optimum site. Local anesthesia with 1% lidocaine. Under real-time ultrasound guidance, puncture of the peritoneal space performed using paracentesis needle. Digital image was saved and archived. Stylet removed. Catheter placed to vacuum bottle suction. Fluid was aspirated. Patient tolerated procedure well, without immediate complication. Diagnostic paracentesis also done with fluid sent for studies as requested. Findings: Followup sonography demonstrates complete resolution of peritoneal fluid. The liver appears nodular indicative of chronic disease. Impression: Successful ultrasound-guided paracentesis, yielding 2500 cc of fluid
[2018-10-30] MEDS ORDERED: Lidocaine 1% MPF 10mg/ml 5ml ONE (11:00)
[2018-10-30] MEDS ORDERED: Atropine Sulfate 0.4mg/ml inj ONE (11:00)
[2018-10-30] MEDS ORDERED: Propofol 200mg/20ml IV ONE (11:00)
[2018-10-30] MEDS ORDERED: NS 500ML IVPB ONE (11:05)
--- NOTE | 2018-10-30 11:08 | Endoscopy Procedure Note ---
Endoscopy Procedure Note General Indication for Procedure: anemia Procedures Performed: EGD Operative Findings/Diagnosis: gastritis Specimen: yes Pt Tolerated Procedure Well: Yes Estimated Blood Loss: none Anesthesia Anesthesiologist: lester Anesthesia: MAC Inserted Devices Implant(s) used?: No GI Core Measures 50 yrs or older w/o bx or poly: Not Applicable 10yrs. F/U not recommended: Not Applicable Dannie Don MD Oct 30, 2018 11:08
--- NOTE | 2018-10-30 11:58 | Immediate Post-Op Evaluation ---
Immediate Post-Op Evalulation Immediate Post-Op Evalulation Procedure: EGD W/BX Date of Evaluation: Oct 30, 2018 Time of Evaluation: 11:52 IV Fluids: 150ml 0.9ns Blood Products: none Estimated Blood Loss: negligible Blood Pressure Systolic: 183 Blood Pressure Diastolic: 77 Pulse Rate: 52 Respiratory Rate: 18 O2 Sat by Pulse Oximetry: 100 Temperature (Fahrenheit): 97.5 Pain Score (1-10): 0 Nausea: No Vomiting: No Complications none Patient Status: awake, reacts, patent Hydration Status: adequate Drug: Vicenta Herrera MD Oct 30, 2018 11:58
--- NOTE | 2018-10-30 12:00 | 48 Hour Post Anesthesia Eval ---
Post Anesthesia Evaluation Procedure: EGD W/BX Date of Evaluation: Oct 30, 2018 Time of Evaluation: 11:54 Blood Pressure Systolic: 198 0: 65 Pulse Rate: 52 Respiratory Rate: 18 Temperature (Fahrenheit): 97.5 O2 Sat by Pulse Oximetry: 100 Airway: patent Nausea: No Vomiting: No Pain Intensity: 0 Hydration Status: adequate Cardiopulmonary Status: stable Mental Status/LOC: patient returned to baseline Post-Anesthesia Complications: none Follow-up care needed: N/A Vicenta Zheng MD Oct 30, 2018 12:00
[2018-10-30] MEDS: D5 1/2NS 1,000 ML IV SCH (12:54)
--- NOTE | 2018-10-30 14:50 | Nephrology Progress Note ---
Assessment/Plan Problem List: (1) ESRD on dialysis (2) UGIB (upper gastrointestinal bleed) (3) Abdominal distension (4) Anemia (5) Diabetes mellitus Assessment ESRD Upper GI Bleed Abdominal distension DM HTN Anemia h/o CVA Bradycardia Plan HD in am per GI NPO IV Protonix, Reglan Monitor H&H no need for HD today Stop HR lowering meds per orders CT: Moderate to severe thickening of the urinary bladder wall. Correlate for cystitis. Moderate ascites Hepatomegaly with fatty infiltration. Complex right pleural effusion with associated compressive atelectasis and/or pneumonia. Anasarca Small nodes in the retroperitoneum/mesentery, nonspecific. Hiatal hernia. Subjective ROS Limited/Unobtainable: No Constitutional: Reports: malaise Objective Objective Last 24 Hour Vital Signs Date Time Temp Pulse Resp B/P (MAP) Pulse Ox O2 Delivery O2 Flow Rate FiO2 10/30/18 12:34 175/73 10/30/18 12:13 98.0 51 15 180/77 100 Nasal Cannula 3 10/30/18 12:05 51 13 185/79 100 Nasal Cannula 3 10/30/18 12:00 52 18 100 10/30/18 11:58 52 18 100 10/30/18 11:50 52 15 186/79 100 Nasal Cannula 3 10/30/18 11:45 50 18 185/77 100 Nasal Cannula 3 10/30/18 11:40 97.5 52 18 183/77 100 Nasal Cannula 3 10/30/18 09:40 50 16 Room Air 21 10/30/18 09:00 Room Air 10/30/18 08:00 49 10/30/18 08:00 98.0 48 18 163/64 (97) 100 10/30/18 04:00 98.1 52 18 149/70 (96) 96 10/30/18 04:00 50 10/30/18 00:33 167/68 10/30/18 00:00 98.3 50 18 167/68 (101) 95 10/30/18 00:00 49 10/29/18 21:00 Room Air 10/29/18 20:30 49 20 Room Air 21 10/29/18 20:00 50 10/29/18 20:00 98.3 51 18 153/69 (97) 95 10/29/18 18:01 50 143/67 10/29/18 17:10 162/72 10/29/18 16:00 97.4 49 20 162/72 (102) 98 10/29/18 16:00 48 Intake and Output 10/29/18 10/30/18 18:59 06:59 # Bowel Movements 1 Laboratory Tests 10/29/18 23:00: Stool Occult Blood Positive 10/30/18 05:54: White Blood Count 7.2, Red Blood Count 3.04L, Hemoglobin 8.9L, Hematocrit 28.1L , Mean Corpuscular Volume 92, Mean Corpuscular Hemoglobin 29.2, Mean Corpuscular Hemoglobin Concent 31.6L, Red Cell Distribution Width 17.8H, Platelet Count 153, Mean Platelet Volume 8.4, Neutrophils (%) (Auto) 66.1, Lymphocytes (%) (Auto) 17.6L, Monocytes (%) (Auto) 7.0, Eosinophils (%) (Auto) 7.9H, Basophils (%) (Auto) 1.5, Prothrombin Time 15.6H, Prothromb Time International Ratio 1.5H, Activated Partial Thromboplast Time 36H, Sodium Level 133L, Potassium Level 5.0, Chloride Level 97L, Carbon Dioxide Level 24, Anion Gap 12, Blood Urea Nitrogen 75H, Creatinine 5.7H, Estimat Glomerular Filtration Rate 10.5, Glucose Level 99, Uric Acid 6.9, Calcium Level 8.3L, Phosphorus Level 6.3H, Magnesium Level 2.6H, Total Bilirubin 1.3H, Direct Bilirubin 0.9H, Aspartate Amino Transf (AST/SGOT) 30, Alanine Aminotransferase (ALT/SGPT) 28, Alkaline Phosphatase 1326H, Total Protein 7.0, Albumin 2.4L, Globulin 4.6, Albumin/Globulin Ratio 0.5L Height (Feet): 5 Height (Inches): 3.00 Weight (Pounds): 145 General Appearance: no apparent distress Cardiovascular: bradycardia Respiratory/Chest: decreased breath sounds Abdomen: distended Eliazar Fong MD Oct 30, 2018 14:50
[2018-10-30] MEDS ORDERED: D5 1/2NS 1,000 ML IV SCH (14:55)
--- NOTE | 2018-10-30 15:07 | NUR ---
NURSE NOTES: called [facility] to schedule HD for 10/31/2017. Per rep, Shan will call to confirm
[2018-10-30] MEDS ORDERED: HydrALAZINE 50mg tab ORAL SCH ×2 (15:30→22:00)
--- NOTE | 2018-10-30 18:21 | NUR ---
NURSE NOTES: Shan Called to confirm HD
--- NOTE | 2018-10-30 19:30 | NUR ---
NURSE NOTES: Report received from Clarissa STONE. Pt is resting in bed in stable condition. Pt is sleeping but is easily arousable to name and light touch. Pt is oriented x4. Pt is on room air and breathing is even and unlabored. Pt denies pain at this time. No acute distress noted. AV shunt noted in L upper arm. Sign above bed to avoid BP and blood draw from LUE. IV site is asymptomatic, patent, and intact and running IV fluids at rx rate. Bed is placed in lowest position with brake engaged, side rails up x3, and bed alarm on. Call light and side table placed within reach. Will continue to monitor.
--- NOTE | 2018-10-30 19:43 | NUR ---
HAND-OFF: Report given to CHASE Hernández. Plan of care endorsed.
--- NOTE | 2018-10-30 20:15 | Progress Note ---
DATE: 10/30/2018 SUBJECTIVE: This is an elderly male, who has past medical history of anemia and GI bleed, had an EGD, which was unremarkable. The patient is currently doing better. He is still complaining on and off pain. PHYSICAL EXAMINATION: GENERAL: This is an elderly male. VITAL SIGNS: Blood pressure is slightly low. CHEST: Bilaterally clear. CARDIOVASCULAR: Regular rhythm. No gallop. No murmur. ABDOMEN: Soft. EXTREMITIES: No CCE. NEUROLOGICAL: The patient has no focal deficit. GENITOURINARY: Deferred. LABORATORY DATA: Not available. PLAN: We will currently continue current treatment. Check H and H, CBC, and CMP. Alvaro Ruvalcaba M.D. DR: NOEL JOB#: [id number] CC:
--- NOTE | 2018-10-30 20:34 | General Progress Note ---
Assessment/Plan Assessment/Plan Assessment and recs: # Anemia due to upper gi bleed -- intially present with abdominal distension, seen by gi --> as per egd was done and is unremarkable --> anemia panel has been ordered and revieweed, ferritin of 1632, %sat 28% --> no evidence of hemolysis is noted --> trend hgb as required, 10-->9 range --> started on a ppi, consider sucrafate # Anemia due ot kidney disease --> iron needed if ferritin is <500 or % sat <20% and it is sufficient at this --> continue on outpatient epogen sq --> trend hgb/hct # UGIB (upper gastrointestinal bleed) --> egd neg # ESRD on dialysis --> HD as per renal team The timing of this note does not necessarily reflect the time of the patient was seen Greatly appreciate consultation! Subjective Constitutional: Denies: no symptoms, chills, diaphoresis, fever, malaise, weakness, other HEENT: Denies: no symptoms, eye pain, blurred vision, tearing, double vision, ear pain, ear discharge, nose pain, nose congestion, throat pain, throat swelling, mouth pain, mouth swelling, other Cardiovascular: Denies: no symptoms, chest pain, edema, irregular heart rate, lightheadedness, palpitations, syncope, other Respiratory: Denies: no symptoms, cough, orthopnea, shortness of breath, SOB with excertion, SOB at rest, sputum, stridor, wheezing, other Gastrointestinal/Abdominal: Denies: no symptoms, abdomen distended, abdominal pain, black stools, tarry stools, blood in stool, constipated, diarrhea, difficulty swallowing, nausea, poor appetite, poor fluid intake, rectal bleeding , vomiting, other Genitourinary: Denies: no symptoms, burning, discharge, frequency, flank pain, hematuria, incontinence, pain, urgency, other Neurologic/Psychiatric: Denies: no symptoms, anxiety, depressed, emotional problems, headache, numbness, paresthesia, pre-existing deficit, seizure, tingling, tremors, weakness, other Endocrine: Denies: no symptoms, excessive sweating, flushing, intolerance to cold, intolerance to heat, increased hunger, increased thirst, increased urine, unexplained weight gain, unexplained weight loss, other Allergies: Coded Allergies: No Known Allergies (Unverified , 10/28/18) Subjective 10/30: egd unremarkable, hd with vip per Shan rn tomorrow Objective Last 24 Hour Vital Signs Date Time Temp Pulse Resp B/P (MAP) Pulse Ox O2 Delivery O2 Flow Rate FiO2 10/30/18 20:04 54 16 Room Air 21 10/30/18 16:20 50 175/70 10/30/18 16:19 175/70 10/30/18 16:00 49 10/30/18 16:00 97.7 50 18 175/70 (105) 95 10/30/18 12:34 175/73 10/30/18 12:13 98.0 51 15 180/77 100 Nasal Cannula 3 10/30/18 12:05 51 13 185/79 100 Nasal Cannula 3 10/30/18 12:00 52 18 100 10/30/18 11:58 52 18 100 10/30/18 11:50 52 15 186/79 100 Nasal Cannula 3 10/30/18 11:45 50 18 185/77 100 Nasal Cannula 3 10/30/18 11:40 97.5 52 18 183/77 100 Nasal Cannula 3 10/30/18 09:40 50 16 Room Air 21 10/30/18 09:00 Room Air 10/30/18 08:00 49 10/30/18 08:00 98.0 48 18 163/64 (97) 100 10/30/18 04:00 98.1 52 18 149/70 (96) 96 10/30/18 04:00 50 10/30/18 00:33 167/68 10/30/18 00:00 98.3 50 18 167/68 (101) 95 10/30/18 00:00 49 10/29/18 21:00 Room Air Intake and Output 10/29/18 10/30/18 19:00 07:00 # Bowel Movements 1 Laboratory Tests 10/29/18 23:00: Stool Occult Blood Positive 10/30/18 05:54: White Blood Count 7.2, Red Blood Count 3.04L, Hemoglobin 8.9L, Hematocrit 28.1L , Mean Corpuscular Volume 92, Mean Corpuscular Hemoglobin 29.2, Mean Corpuscular Hemoglobin Concent 31.6L, Red Cell Distribution Width 17.8H, Platelet Count 153, Mean Platelet Volume 8.4, Neutrophils (%) (Auto) 66.1, Lymphocytes (%) (Auto) 17.6L, Monocytes (%) (Auto) 7.0, Eosinophils (%) (Auto) 7.9H, Basophils (%) (Auto) 1.5, Prothrombin Time 15.6H, Prothromb Time International Ratio 1.5H, Activated Partial Thromboplast Time 36H, Sodium Level 133L, Potassium Level 5.0, Chloride Level 97L, Carbon Dioxide Level 24, Anion Gap 12, Blood Urea Nitrogen 75H, Creatinine 5.7H, Estimat Glomerular Filtration Rate 10.5, Glucose Level 99, Uric Acid 6.9, Calcium Level 8.3L, Phosphorus Level 6.3H, Magnesium Level 2.6H, Total Bilirubin 1.3H, Direct Bilirubin 0.9H, Aspartate Amino Transf (AST/SGOT) 30, Alanine Aminotransferase (ALT/SGPT) 28, Alkaline Phosphatase 1326H, Total Protein 7.0, Albumin 2.4L, Globulin 4.6, Albumin/Globulin Ratio 0.5L Height (Feet): 5 Height (Inches): 3.00 Weight (Pounds): 145 Objective Physical Exam General Appearance: A+O x3, NAD HEENT: normocephalic, atraumatic Neck: non-tender, normal alignment Respiratory/Chest: chest wall non-tender, lungs clear Cardiovascular/Chest: normal peripheral pulses, normal rate Abdomen: normal bowel sounds, some minor ttp Extremities: normal range of motion Shan Chandra MD Oct 30, 2018 20:34
[2018-10-31] VITALS: BP 161/65
--- NOTE | 2018-10-31 04:30 | NUR ---
TRANSFER TO FLOOR: Patient transferred to medical-surgical room 409-2, per MD Ruvalcaba. Report given to Niki STONE. Belongings and medications given to receiving RN Niki STONE. Belongings checked at bedside. Pt has $65 in sepulveda and declines placing in safe. Sepulveda counted with receiving RN and pt at bedside. Pt is in stable condition upon transfer. Pt transferred to floor without incident. Pt is awake, alert, and oriented x4. Pt is on room air and breathing is even and unlabored. No acute distress noted. IV site is asymptomatic, patent, and intact. Bed placed in lowest position with brake engaged, side rails up x3, and bed alarm on. Call light and side tabel placed within reach. Endorsed plan of care.
[2018-10-31 04:45] VITALS: BP 148/56
[2018-10-31] MEDS ORDERED: Albuterol/Ipratropium 3ml neb HHN PRN (05:00)
--- NOTE | 2018-10-31 05:00 | NUR ---
NURSE NOTES: Received patient from Tele via hospital bed at 0430. On RA, no SOB, no acute distress, no c/o pain. IV intact, patent on RAC. Report received from [place] tax assessorCHASE Hernández by bedside. All orders transferred. Belongings checked. Oriented patient to surroundings. Bed in lowest position, locked, alarms on. Call light in reach.
[2018-10-31] MEDS: NovoLOG Insulin Flexpen SUBQ SCH ×4 (05:40→21:01)
[2018-10-31] MEDS: HydrALAZINE 50mg tab ORAL SCH ×3 (05:58→21:01)
[2018-10-31] MEDS ORDERED: traMADol 50mg tab ORAL PRN (06:00)
[2018-10-31] MEDS ORDERED: Metoclopramide 10mg/2ml Inj IVP PRN (07:15)
--- NOTE | 2018-10-31 07:55 | NUR ---
NURSE NOTES: Received patient from CHASE Street. Patient is awake, eating breakfast, not in respiratory distress, in room air. Bed in the lowest position. Call light within reach. Will cintinue to monitor oatient.
[2018-10-31 08:00] VITALS: BP 98/58
[2018-10-31] MEDS ORDERED: Losartan 50mg tab ORAL SCH (09:00)
[2018-10-31] MEDS ORDERED: Pantoprazole Inj IVP SCH (09:00)
[2018-10-31 09:05] LABS: EOSINOPHILS % (AUTO) 2.2 % (0.0-3.0); HEMATOCRIT 27.9 % (42.0-52.0); HEMOGLOBIN 8.9 G/DL (14.2-18.0); LYMPHOCYTES % (AUTO) 12.4 % (20.0-45.0); MEAN CORPUSCULAR VOLUME 92 FL (80-99); MONOCYTES % (AUTO) 7.3 % (1.0-10.0); NEUTROPHILS % (AUTO) 77.1 % (45.0-75.0); PLATELET COUNT 164 K/UL (150-450); RED BLOOD COUNT 3.04 M/UL (4.70-6.10); RED CELL DISTRIBUTION WIDTH 17.7 % (11.6-14.8); WHITE BLOOD COUNT 9.6 K/UL (4.8-10.8)
[2018-10-31] MEDS: Neomycin Sulfate 500mg Tab ORAL SCH ×3 (09:06→18:04)
[2018-10-31] MEDS: Docusate 100mg cap ORAL SCH ×3 (09:09→18:01)
[2018-10-31] MEDS: Lyrica 50mg cap ORAL SCH ×3 (09:11→18:02)
[2018-10-31 10:36] LABS: ANION GAP 14 mmol/L (5-15); BLOOD UREA NITROGEN 87 mg/dL (7-18); CALCIUM 8.1 MG/DL (8.5-10.1); CARBON DIOXIDE 23 MMOL/L (21-32); CHLORIDE 95 MMOL/L (98-107); POTASSIUM 5.2 MMOL/L (3.5-5.1); SODIUM 132 MMOL/L (136-145)
--- NOTE | 2018-10-31 10:38 | Nephrology Progress Note ---
Assessment/Plan Problem List: (1) ESRD on dialysis (2) UGIB (upper gastrointestinal bleed) (3) Abdominal distension (4) Anemia (5) Diabetes mellitus (6) Bradyarrhythmia Assessment ESRD Upper GI Bleed Abdominal distension DM HTN Anemia h/o CVA Bradycardia Plan HD today per GI Renal diet Monitor H&H Stop HR lowering meds per orders CT: Moderate to severe thickening of the urinary bladder wall. Correlate for cystitis. Moderate ascites Hepatomegaly with fatty infiltration. Complex right pleural effusion with associated compressive atelectasis and/or pneumonia. Anasarca Small nodes in the retroperitoneum/mesentery, nonspecific. Hiatal hernia. Subjective ROS Limited/Unobtainable: No Constitutional: Reports: malaise Objective Objective Last 24 Hour Vital Signs Date Time Temp Pulse Resp B/P (MAP) Pulse Ox O2 Delivery O2 Flow Rate FiO2 10/31/18 09:57 Room Air 10/31/18 08:00 98.0 51 18 98/58 (71) 95 10/31/18 05:58 148/56 10/31/18 04:45 97.7 51 19 148/56 (86) 96 10/31/18 04:00 49 10/31/18 00:00 98.5 50 19 161/65 (97) 95 10/31/18 00:00 49 10/30/18 21:47 147/69 10/30/18 21:00 Room Air 10/30/18 20:04 54 16 Room Air 21 10/30/18 20:00 51 10/30/18 20:00 97.8 50 18 147/69 (95) 97 10/30/18 16:20 50 175/70 10/30/18 16:19 175/70 10/30/18 16:00 49 10/30/18 16:00 97.7 50 18 175/70 (105) 95 10/30/18 12:34 175/73 10/30/18 12:13 98.0 51 15 180/77 100 Nasal Cannula 3 10/30/18 12:05 51 13 185/79 100 Nasal Cannula 3 10/30/18 12:00 52 18 100 10/30/18 11:58 52 18 100 10/30/18 11:50 52 15 186/79 100 Nasal Cannula 3 10/30/18 11:45 50 18 185/77 100 Nasal Cannula 3 10/30/18 11:40 97.5 52 18 183/77 100 Nasal Cannula 3 Intake and Output 10/30/18 10/31/18 19:00 07:00 Intake Total 270 ml 240 ml Balance 270 ml 240 ml Intake Oral 120 ml 240 ml IV Total 150 ml # Bowel Movements 1 Laboratory Tests 10/31/18 06:15: Hepatitis A IgM Antibody [Pending], Hepatitis B Surface Antigen [Pending], Hepatitis B Core IgM Antibody [Pending], Hepatitis C Antibody [Pending] 10/31/18 08:24: White Blood Count 9.6, Red Blood Count 3.04L, Hemoglobin 8.9L, Hematocrit 27.9L , Mean Corpuscular Volume 92, Mean Corpuscular Hemoglobin 29.4, Mean Corpuscular Hemoglobin Concent 32.0, Red Cell Distribution Width 17.7H, Platelet Count 164, Mean Platelet Volume 8.0, Neutrophils (%) (Auto) 77.1H, Lymphocytes (%) (Auto) 12.4L, Monocytes (%) (Auto) 7.3, Eosinophils (%) (Auto) 2.2, Basophils (%) (Auto) 1.0, Sodium Level 132L, Potassium Level 5.2H, Chloride Level 95L, Carbon Dioxide Level 23, Anion Gap 14, Blood Urea Nitrogen 87H, Creatinine 7.0H, Estimat Glomerular Filtration Rate 8.3, Glucose Level 177H , Calcium Level 8.1L Height (Feet): 5 Height (Inches): 3.00 Weight (Pounds): 145 General Appearance: no apparent distress Respiratory/Chest: decreased breath sounds Abdomen: distended Eliazar Fong MD Oct 31, 2018 10:38
[2018-10-31 11:50] VITALS: BP 122/58
[2018-10-31] MEDS ORDERED: D5 1/2NS 1000ml IV ONE (14:52)
[2018-10-31 16:00] VITALS: BP 168/64
--- NOTE | 2018-10-31 19:25 | NUR ---
NURSE NOTES: Received patient on bed awake, no s/s of any distress, denies any pain. IV line patent and intact. Left UP AV shunt noted w/ bruit. Bed in low position and locked, call light within reach, will continue to monitor.
--- NOTE | 2018-10-31 19:25 | NUR ---
HAND-OFF: Report given to Cisco STONE.
[2018-10-31 20:00] VITALS: BP 165/50
[2018-11-01] VITALS: BP 139/54
[2018-11-01 04:00] VITALS: BP 156/67
[2018-11-01] MEDS: HydrALAZINE 50mg tab ORAL SCH ×3 (05:08→21:21)
--- NOTE | 2018-11-01 05:39 | NUR ---
NURSE NOTES: Notified MD regarding patient Temp of 100.4. Waiting for callback.
[2018-11-01] MEDS: NovoLOG Insulin Flexpen SUBQ SCH ×4 (06:10→20:53)
--- NOTE | 2018-11-01 07:09 | NUR ---
HAND-OFF: Report given to Silva STONE and Leda STONE.
--- NOTE | 2018-11-01 07:17 | NUR ---
NURSE NOTES: Received patient from CHASE Yadav.Patient in bed, sleeping, not in respiratory distress, in room air. Bed in the lowest position, call light within reach. Will continue to monitor patient. Addendum: 11/01/18 at 0733 by Leda Carrasco RN Received the patient from CHASE Peck.> Patient is sleeping in bed, not in respiratory distress, in room air. Bed in the lowest position. Call light within reach. Will continue to monitor patient.
[2018-11-01 08:17] VITALS: BP 149/66
[2018-11-01] MEDS: Docusate 100mg cap ORAL SCH ×3 (08:21→17:24)
[2018-11-01] MEDS: Lyrica 50mg cap ORAL SCH ×2 (08:22→20:50)
[2018-11-01] MEDS: Neomycin Sulfate 500mg Tab ORAL SCH ×3 (08:23→17:25)
--- NOTE | 2018-11-01 11:06 | Nephrology Progress Note ---
Assessment/Plan Problem List: (1) ESRD on dialysis (2) UGIB (upper gastrointestinal bleed) (3) Abdominal distension (4) Anemia (5) Diabetes mellitus (6) Bradyarrhythmia Assessment ESRD Upper GI Bleed Abdominal distension DM HTN Anemia h/o CVA Bradycardia Plan HD 10/31 then 11/02 adjust bp meds per GI Renal diet Monitor H&H Stop HR lowering meds per orders CT: Moderate to severe thickening of the urinary bladder wall. Correlate for cystitis. Moderate ascites Hepatomegaly with fatty infiltration. Complex right pleural effusion with associated compressive atelectasis and/or pneumonia. Anasarca Small nodes in the retroperitoneum/mesentery, nonspecific. Hiatal hernia. Subjective ROS Limited/Unobtainable: No Objective Objective Last 24 Hour Vital Signs Date Time Temp Pulse Resp B/P (MAP) Pulse Ox O2 Delivery O2 Flow Rate FiO2 11/01/18 09:00 Room Air 11/01/18 08:27 52 149/66 11/01/18 08:17 98.5 52 20 149/66 (93) 98 11/01/18 05:08 156/67 11/01/18 04:00 98.3 58 20 156/67 (96) 96 11/01/18 01:08 97.9 11/01/18 00:00 100.0 62 20 139/54 (82) 98 10/31/18 21:01 165/50 10/31/18 21:00 Room Air 10/31/18 20:00 99.0 59 20 165/50 (88) 98 10/31/18 19:56 52 16 Room Air 21 10/31/18 16:00 Room Air 10/31/18 16:00 98.2 62 18 168/64 (98) 97 10/31/18 11:50 98.2 51 18 122/58 (79) 96 Intake and Output 10/31/18 11/01/18 19:00 07:00 Intake Total 840 ml Output Total 2000 ml Balance -1160 ml Intake Oral 840 ml Output Hemodialysis UF 2000 ml # Voids 2 # Bowel Movements 1 1 Height (Feet): 5 Height (Inches): 3.00 Weight (Pounds): 145 General Appearance: no apparent distress, lethargic Cardiovascular: bradycardia Respiratory/Chest: decreased breath sounds Abdomen: distended Eliazar Fong MD Nov 01, 2018 11:06
--- NOTE | 2018-11-01 11:45 | NUR ---
CASE MANAGEMENT:REVIEW 11/01/18 SI: GIB. ANEMIA. ASCITES. CIRRHOSIS ESRD T 98.5 HR 52 RR 20 B/P 149/66 SATS 98% ON RA NO LABS TODAY IS: NORVASC PO BID COLACE TID COZAAR PO QD IV PROTONIX Q12 LYRICA PO TID : MED/SURG STATUS DCP: FROM [facility] PLAN: HD
[2018-11-01 12:00] VITALS: BP 158/65
[2018-11-01 16:00] VITALS: BP 106/51
--- NOTE | 2018-11-01 17:08 | NUR ---
NURSE NOTES: Patient for dialysis tomorrow. At 16:00 CHASE Don informed me that Shan from [facility] called and confirmed patient's dialysis schedule.
--- NOTE | 2018-11-01 17:52 | NUR ---
NURSE NOTES: Juan Antonio, the air defence officer at [facility] called at 17:50 to confirm patient's dialysis.
--- NOTE | 2018-11-01 19:11 | NUR ---
HAND-OFF: Report given to CHASE Peck.
--- NOTE | 2018-11-01 19:11 | NUR ---
NURSE NOTES: Received patient on bed awake, no s/s of any distress, denies any pain. IV line patent and intact. Left UA AV shunt noted w/ bruit. Bed in low position and locked, call light within reach, will continue to monitor.
[2018-11-01 20:00] VITALS: BP 127/56
--- NOTE | 2018-11-01 21:00 | Progress Note ---
DATE: 11/01/2018 SUBJECTIVE: The patient is 53 years old, he is currently improving. OBJECTIVE: VITAL SIGNS: Stable. Blood pressure is 124/70, pulse 74, and respirations 18. CHEST: Bilaterally clear. CARDIOVASCULAR: Regular rhythm. No gallop. No murmur. ABDOMEN: Soft. EXTREMITIES: CCE. NEUROLOGICAL: The patient has generalized weakness. ASSESSMENT: 1. SOB. 2. COPD. 3. Fluid overload. 4. End-stage renal disease. 5. Ascites. 6. GI bleed is improving. PLAN: Hemoglobin is still low, we will currently continue current treatment. Continue . Alvaro Ruvalcaba M.D. DR: Leroy JOB#: [id number] CC:
[2018-11-02] VITALS: BP 132/61
[2018-11-02 04:00] VITALS: BP 128/55
[2018-11-02] MEDS: HydrALAZINE 50mg tab ORAL SCH ×3 (05:37→21:08)
[2018-11-02] MEDS: NovoLOG Insulin Flexpen SUBQ SCH ×4 (05:38→21:09)
[2018-11-02 05:51] LABS: HEMATOCRIT 23.9 % (42.0-52.0); HEMOGLOBIN 7.7 G/DL (14.2-18.0); MEAN CORPUSCULAR VOLUME 92 FL (80-99); PLATELET COUNT 184 K/UL (150-450); RED CELL DISTRIBUTION WIDTH 17.1 % (11.6-14.8); WHITE BLOOD COUNT 8.3 K/UL (4.8-10.8)
[2018-11-02 06:27] LABS: ALANINE AMINOTRANSFERASE 21 U/L (12-78); ALBUMIN 2.3 G/DL (3.4-5.0); ALBUMIN/GLOBULIN RATIO 0.5 (1.0-2.7); ALKALINE PHOSPHATASE 1101 U/L (46-116); ANION GAP 10 mmol/L (5-15); ASPARTATE AMINO TRANSFERASE 17 U/L (15-37); BILIRUBIN,TOTAL 1.3 MG/DL (0.2-1.0); BLOOD UREA NITROGEN 65 mg/dL (7-18); CALCIUM 8.2 MG/DL (8.5-10.1); CARBON DIOXIDE 29 MMOL/L (21-32); CHLORIDE 96 MMOL/L (98-107); CREATININE 6.3 MG/DL (0.55-1.30); POTASSIUM 4.9 MMOL/L (3.5-5.1); SODIUM 135 MMOL/L (136-145)
[2018-11-02 07:07] LABS: BILIRUBIN,DIRECT 0.9 MG/DL (0.0-0.3)
--- NOTE | 2018-11-02 07:32 | NUR ---
HAND-OFF: Report given to Nancy STONE
--- NOTE | 2018-11-02 08:00 | NUR ---
NURSE NOTES: Patient alert and oriented,AV Dialysis shunt to the Left arm with strong bruit and thrill,patient schedule for Dialysis today.Bed alarm is on,call light within reach.
[2018-11-02 08:27] VITALS: BP 152/64
[2018-11-02] MEDS: Docusate 100mg cap ORAL SCH ×3 (08:37→18:55)
[2018-11-02] MEDS: Neomycin Sulfate 500mg Tab ORAL SCH ×3 (08:38→18:55)
--- NOTE | 2018-11-02 09:40 | NUR ---
NURSE NOTES: Patient Hemoglobin and Hematocrit today,7.[address] Ruvalcaba and DR Fong aware .order received to give one unit of PRBC today.Labs ordered for 11/03/18.
--- NOTE | 2018-11-02 10:42 | GI Progress Note ---
Assessment/Plan Problems: (1) Anemia ICD Codes: D64.9 - Anemia, unspecified SNOMED: 105453804 (2) UGIB (upper gastrointestinal bleed) ICD Codes: K92.2 - Gastrointestinal hemorrhage, unspecified SNOMED: 05291114 (3) Abdominal distension ICD Codes: R14.0 - Abdominal distension (gaseous) SNOMED: 15930496 (4) ESRD on dialysis ICD Codes: N18.6 - End stage renal disease; Z99.2 - Dependence on renal dialysis SNOMED: 199415390 Status: progressing Status Narrative Discussed with Dr. Don Assessment/Plan Status post paracentesis yielding 2500 cc of fluid >> rule out SBP Status post EGD documented with gastritis OB stool positive Will send for additional OB stool, will consider colonoscopy if positive monitor H&H, prn transfusions bowel regime ppi fu labs Okay to advance diet The patient was seen and examined at bedside and all new and available data was reviewed in the patients chart. I agree with the above findings, impression and plan. (Patient seen earlier today. Signature stamp does not reflect patient encounter time.). - Dannie Don MD Subjective Subjective Limited Objective Last 24 Hour Vital Signs Date Time Temp Pulse Resp B/P (MAP) Pulse Ox O2 Delivery O2 Flow Rate FiO2 11/02/18 08:27 98.7 59 18 152/64 (93) 96 11/02/18 05:37 128/55 11/02/18 04:00 98.5 55 17 128/55 (79) 95 11/02/18 00:00 98.4 64 18 132/61 (84) 95 11/01/18 21:21 127/56 11/01/18 21:00 Room Air 11/01/18 20:00 98.5 57 17 127/56 (79) 95 11/01/18 16:00 98.5 53 20 106/51 (69) 95 11/01/18 13:18 158/65 11/01/18 12:00 98.5 56 20 158/65 (96) 98 Intake and Output 11/01/18 11/02/18 19:00 07:00 Intake Total 360 ml Balance 360 ml Intake Oral 360 ml # Voids 2 # Bowel Movements 1 1 Laboratory Tests Test 11/01/18 12:10 11/02/18 05:15 C-Reactive Protein, Quantitative 6.2 mg/dL (0.00-0.90) H White Blood Count 8.3 K/UL (4.8-10.8) Red Blood Count 2.60 M/UL (4.70-6.10) L Hemoglobin 7.7 G/DL (14.2-18.0) L Hematocrit 23.9 % (42.0-52.0) L Mean Corpuscular Volume 92 FL (80-99) Mean Corpuscular Hemoglobin 29.6 PG (27.0-31.0) Mean Corpuscular Hemoglobin Concent 32.3 G/DL (32.0-36.0) Red Cell Distribution Width 17.1 % (11.6-14.8) H Platelet Count 184 K/UL (150-450) Mean Platelet Volume 6.9 FL (6.5-10.1) Neutrophils (%) (Auto) % (45.0-75.0) Lymphocytes (%) (Auto) % (20.0-45.0) Monocytes (%) (Auto) % (1.0-10.0) Eosinophils (%) (Auto) % (0.0-3.0) Basophils (%) (Auto) % (0.0-2.0) Differential Total Cells Counted 100 Neutrophils % (Manual) 74 % (45-75) Lymphocytes % (Manual) 15 % (20-45) L Monocytes % (Manual) 9 % (1-10) Eosinophils % (Manual) 2 % (0-3) Basophils % (Manual) 0 % (0-2) Band Neutrophils 0 % (0-8) Platelet Estimate Adequate Platelet Morphology Normal Hypochromasia 1+ Anisocytosis 1+ Sodium Level 135 MMOL/L (136-145) L Potassium Level 4.9 MMOL/L (3.5-5.1) Chloride Level 96 MMOL/L (98-107) L Carbon Dioxide Level 29 MMOL/L (21-32) Anion Gap 10 mmol/L (5-15) Blood Urea Nitrogen 65 mg/dL (7-18) H Creatinine 6.3 MG/DL (0.55-1.30) H Estimat Glomerular Filtration Rate 9.3 mL/min (>60) Glucose Level 92 MG/DL (74-106) Uric Acid 5.8 MG/DL (2.6-7.2) Calcium Level 8.2 MG/DL (8.5-10.1) L Phosphorus Level 6.0 MG/DL (2.5-4.9) H Magnesium Level 2.7 MG/DL (1.8-2.4) H Total Bilirubin 1.3 MG/DL (0.2-1.0) H Direct Bilirubin 0.9 MG/DL (0.0-0.3) H Aspartate Amino Transf (AST/SGOT) 17 U/L (15-37) Alanine Aminotransferase (ALT/SGPT) 21 U/L (12-78) Alkaline Phosphatase 1101 U/L (46-116) H Ammonia 43 umol/L (11-32) H Pro-B-Type Natriuretic Peptide 27984 pg/mL (0-125) H Total Protein 6.6 G/DL (6.4-8.2) Albumin 2.3 G/DL (3.4-5.0) L Globulin 4.3 g/dL Albumin/Globulin Ratio 0.5 (1.0-2.7) L Height (Feet): 5 Height (Inches): 3.00 Weight (Pounds): 142 General Appearance: no apparent distress, alert Cardiovascular: normal rate Respiratory/Chest: normal breath sounds, no respiratory distress Abdominal Exam: normal bowel sounds, non tender, soft Extremities: non-tender Reji Sherman NP Nov 02, 2018 10:42
--- NOTE | 2018-11-02 11:23 | Nephrology Progress Note ---
Assessment/Plan Problem List: (1) ESRD on dialysis (2) UGIB (upper gastrointestinal bleed) (3) Abdominal distension (4) Anemia (5) Diabetes mellitus (6) Bradyarrhythmia Assessment ESRD Upper GI Bleed Abdominal distension DM HTN Anemia h/o CVA Bradycardia Plan HD 10/31 then 11/02 transfuse adjust bp meds per GI Renal diet Monitor H&H Stop HR lowering meds per orders CT: Moderate to severe thickening of the urinary bladder wall. Correlate for cystitis. Moderate ascites Hepatomegaly with fatty infiltration. Complex right pleural effusion with associated compressive atelectasis and/or pneumonia. Anasarca Small nodes in the retroperitoneum/mesentery, nonspecific. Hiatal hernia. Subjective ROS Limited/Unobtainable: No Constitutional: Reports: malaise, weakness Objective Objective Last 24 Hour Vital Signs Date Time Temp Pulse Resp B/P (MAP) Pulse Ox O2 Delivery O2 Flow Rate FiO2 11/02/18 08:27 98.7 59 18 152/64 (93) 96 11/02/18 05:37 128/55 11/02/18 04:00 98.5 55 17 128/55 (79) 95 11/02/18 00:00 98.4 64 18 132/61 (84) 95 11/01/18 21:21 127/56 11/01/18 21:00 Room Air 11/01/18 20:00 98.5 57 17 127/56 (79) 95 11/01/18 16:00 98.5 53 20 106/51 (69) 95 11/01/18 13:18 158/65 11/01/18 12:00 98.5 56 20 158/65 (96) 98 Intake and Output 11/01/18 11/02/18 19:00 07:00 Intake Total 360 ml Balance 360 ml Intake Oral 360 ml # Voids 2 # Bowel Movements 1 1 Laboratory Tests 11/01/18 12:10: C-Reactive Protein, Quantitative 6.2H 11/02/18 05:15: White Blood Count 8.3, Red Blood Count 2.60L, Hemoglobin 7.7L, Hematocrit 23.9L , Mean Corpuscular Volume 92, Mean Corpuscular Hemoglobin 29.6, Mean Corpuscular Hemoglobin Concent 32.3, Red Cell Distribution Width 17.1H, Platelet Count 184, Mean Platelet Volume 6.9, Neutrophils (%) (Auto) , Lymphocytes (%) (Auto) , Monocytes (%) (Auto) , Eosinophils (%) (Auto) , Basophils (%) (Auto) , Differential Total Cells Counted 100, Neutrophils % ( Manual) 74, Lymphocytes % (Manual) 15L, Monocytes % (Manual) 9, Eosinophils % ( Manual) 2, Basophils % (Manual) 0, Band Neutrophils 0, Platelet Estimate Adequate, Platelet Morphology Normal, Hypochromasia 1+, Anisocytosis 1+, Sodium Level 135L, Potassium Level 4.9, Chloride Level 96L, Carbon Dioxide Level 29, Anion Gap 10, Blood Urea Nitrogen 65H, Creatinine 6.3H, Estimat Glomerular Filtration Rate 9.3, Glucose Level 92, Uric Acid 5.8, Calcium Level 8.2L, Phosphorus Level 6.0H, Magnesium Level 2.7H, Total Bilirubin 1.3H, Direct Bilirubin 0.9H, Aspartate Amino Transf (AST/SGOT) 17, Alanine Aminotransferase ( ALT/SGPT) 21, Alkaline Phosphatase 1101H, Ammonia 43H, Pro-B-Type Natriuretic Peptide 33689B, Total Protein 6.6, Albumin 2.3L, Globulin 4.3, Albumin/Globulin Ratio 0.5L Height (Feet): 5 Height (Inches): 3.00 Weight (Pounds): 142 General Appearance: no apparent distress Cardiovascular: bradycardia Respiratory/Chest: decreased breath sounds Abdomen: soft Eliazar Fong MD Nov 02, 2018 11:23
--- NOTE | 2018-11-02 11:43 | NUR ---
RD ASSESSMENT & RECOMMENDATIONS SEE CARE ACTIVITY FOR COMPLETE ASSESSMENT DAILY ESTIMATED NEEDS: Needs based on ESRD ON HD 64.5kg 28-33 kcals/kg 0819-3428 total kcals 1.2-1.8 g protein/kg 77-116 g total protein Fluid per MD, on HD NUTRITION DIAGNOSIS: Increased kcal and protein needs r/t renal dysfunction as evidenced by pt w/ ESRD on HD CURRENT DIET: Renal PO DIET RECOMMENDATIONS: RENAL/ CCHO MED ADDITIONAL RECOMMENDATIONS: - Texture as tolerated - Add NEPRO 1 tetra radha daily - Obtain a standing weight POST HD OR calibrated bed scale wt
[2018-11-02 12:00] VITALS: BP 159/68
--- NOTE | 2018-11-02 12:25 | NUR ---
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 98.7 HR 59 RR 18 B/P 152/64 RA 98% H/H 7.7/23.9 BNP 61426 IS: ALB HHN PROCARDIA PO US ABDOMINAL MED/SURG STATUS
[2018-11-02 16:00] VITALS: BP 194/72
--- NOTE | 2018-11-02 18:30 | Procedure Note ---
DATE OF PROCEDURE: 10/30/2018 SURGEON: Dannie Don M.D. PROCEDURE: Upper endoscopy with biopsy. ANESTHESIA: Per . INSTRUMENT: Olympus adult flexible upper endoscope. INDICATION: GI bleeding and anemia. REASON FOR PROCEDURE: The procedure, risks, benefits, and possible consequences, including hemorrhage, aspiration, perforation and infection, and alternative treatments, were explained to the patient/legal guardian by Dr. Dannie Don and the patient/legal guardian understood and accepted these risks. PROCEDURE IN DETAIL: After informed consent was obtained and the patient was adequately sedated, the Olympus upper endoscope was advanced from the mouth into the second portion of the duodenum and retroflexion performed in the stomach. The patient had evidence of diffuse gastritis. Random biopsy from antrum was obtained to rule out H. pylori infection. Otherwise, the rest of upper endoscopic examination grossly looked within normal limits. The patient tolerated the procedure very well without any complication. SUMMARY OF FINDINGS: Gastritis otherwise normal upper endoscopic examination. RECOMMENDATIONS: Follow up biopsy results and treat accordingly. I want to thank, Dr. Ruvalcaba for this kind referral. Dannie Don M.D. DR: Juan Jose JOB#: [id number] CC: Alvaro Ruvalcaba M.D.; Fax#: [phone]
--- NOTE | 2018-11-02 18:45 | NUR ---
Patient received 1 unit of PRBC today during Dialysis,patient tolerated.Patient sitting up in bed and eating dinner.patient .Abdominal Ultrasound will be reschedule for 11/03/18 Patient will be NPO after Midnight
--- NOTE | 2018-11-02 19:36 | NUR ---
NURSE NOTES: Received patient on bed awake, no s/s of any distress, denies any pain. IV line patent and intact. Left UA AV shunt noted w/ bruit.Patient is for Abd US brooks, NPO post midnight, patient is aware. Bed in low position and locked, call light within reach, will continue to monitor.
--- NOTE | 2018-11-02 19:36 | NUR ---
HAND-OFF: Report given to LILIBETH STONE.
[2018-11-02 20:00] VITALS: BP 154/62
[2018-11-02] MEDS: Lyrica 50mg cap ORAL SCH (21:08)
[2018-11-03] VITALS: BP 131/55
[2018-11-03 04:00] VITALS: BP 133/60
[2018-11-03] MEDS: HydrALAZINE 50mg tab ORAL SCH ×3 (05:35→21:32)
[2018-11-03] MEDS: NovoLOG Insulin Flexpen SUBQ SCH ×4 (05:49→21:00)
--- NOTE | 2018-11-03 07:06 | NUR ---
HAND-OFF: Report given to Nancy STONE
[2018-11-03 08:00] VITALS: BP 144/61
--- NOTE | 2018-11-03 08:09 | NUR ---
NURSE NOTES: Patient is alert and oriented,Patient is NPO for schedule Abdominal Ultrasound as ordered.Patient AV shunt to the left arm remains with strong bruit and thrill.No complaints at this time.Call light within reach,bed alarm is on.
[2018-11-03 08:11] LABS: BASOPHILS % (AUTO) 1.5 % (0.0-2.0); EOSINOPHILS % (AUTO) 3.9 % (0.0-3.0); HEMATOCRIT 28.9 % (42.0-52.0); HEMOGLOBIN 9.5 G/DL (14.2-18.0); LYMPHOCYTES % (AUTO) 11.6 % (20.0-45.0); MEAN CORPUSCULAR VOLUME 93 FL (80-99); MONOCYTES % (AUTO) 8.8 % (1.0-10.0); NEUTROPHILS % (AUTO) 74.3 % (45.0-75.0); PLATELET COUNT 217 K/UL (150-450); RED BLOOD COUNT 3.12 M/UL (4.70-6.10); RED CELL DISTRIBUTION WIDTH 16.2 % (11.6-14.8); WHITE BLOOD COUNT 7.6 K/UL (4.8-10.8)
[2018-11-03 08:40] LABS: ALANINE AMINOTRANSFERASE 19 U/L (12-78); ALBUMIN 2.2 G/DL (3.4-5.0); ALBUMIN/GLOBULIN RATIO 0.5 (1.0-2.7); ALKALINE PHOSPHATASE 1085 U/L (46-116); ANION GAP 6 mmol/L (5-15); ASPARTATE AMINO TRANSFERASE 19 U/L (15-37); BILIRUBIN,TOTAL 1.1 MG/DL (0.2-1.0); BLOOD UREA NITROGEN 38 mg/dL (7-18); CALCIUM 8.6 MG/DL (8.5-10.1); CARBON DIOXIDE 33 MMOL/L (21-32); CHLORIDE 98 MMOL/L (98-107); CREATININE 4.4 MG/DL (0.55-1.30); PHOSPHORUS 4.7 MG/DL (2.5-4.9); POTASSIUM 3.9 MMOL/L (3.5-5.1); SODIUM 137 MMOL/L (136-145)
[2018-11-03 09:13] LABS: BILIRUBIN,DIRECT 0.8 MG/DL (0.0-0.3)
[2018-11-03] MEDS: Docusate 100mg cap ORAL SCH ×3 (09:58→18:56)
[2018-11-03] MEDS: Neomycin Sulfate 500mg Tab ORAL SCH ×3 (09:59→18:56)
--- NOTE | 2018-11-03 11:29 | Nephrology Progress Note ---
Assessment/Plan Problem List: (1) ESRD on dialysis (2) UGIB (upper gastrointestinal bleed) (3) Abdominal distension (4) Anemia (5) Diabetes mellitus (6) Bradyarrhythmia Assessment ESRD Upper GI Bleed Abdominal distension DM HTN Anemia h/o CVA Bradycardia Plan HD next 11/04 transfused adjust bp meds per GI Renal diet Monitor H&H Stop HR lowering meds per orders CT: Moderate to severe thickening of the urinary bladder wall. Correlate for cystitis. Moderate ascites Hepatomegaly with fatty infiltration. Complex right pleural effusion with associated compressive atelectasis and/or pneumonia. Anasarca Small nodes in the retroperitoneum/mesentery, nonspecific. Hiatal hernia. Subjective ROS Limited/Unobtainable: No Constitutional: Reports: malaise Objective Objective Last 24 Hour Vital Signs Date Time Temp Pulse Resp B/P (MAP) Pulse Ox O2 Delivery O2 Flow Rate FiO2 11/03/18 09:59 58 151/63 11/03/18 05:35 133/60 11/03/18 04:00 98.0 55 18 133/60 (84) 100 11/03/18 00:00 98.2 54 18 131/55 (80) 98 11/02/18 21:08 154/62 11/02/18 21:00 Room Air 11/02/18 20:00 98.9 62 18 154/62 (92) 97 11/02/18 16:24 194/76 11/02/18 16:22 66 194/76 11/02/18 16:00 98.7 67 18 194/72 (112) 99 11/02/18 15:36 Room Air 11/02/18 12:00 99.1 58 19 159/68 (98) 98 Intake and Output 11/02/18 11/03/18 19:00 07:00 Intake Total 120 ml Output Total 2500 ml Balance -2500 ml 120 ml Intake Oral 120 ml Output Hemodialysis UF 2500 ml # Bowel Movements 1 Laboratory Tests 11/03/18 04:30: Stool Occult Blood Negative 11/03/18 06:40: White Blood Count 7.6, Red Blood Count 3.12L, Hemoglobin 9.5L, Hematocrit 28.9L , Mean Corpuscular Volume 93, Mean Corpuscular Hemoglobin 30.3, Mean Corpuscular Hemoglobin Concent 32.7, Red Cell Distribution Width 16.2H, Platelet Count 217, Mean Platelet Volume 8.1, Neutrophils (%) (Auto) 74.3, Lymphocytes (%) (Auto) 11.6L, Monocytes (%) (Auto) 8.8, Eosinophils (%) (Auto) 3.9H, Basophils (%) (Auto) 1.5, Sodium Level 137, Potassium Level 3.9, Chloride Level 98, Carbon Dioxide Level 33H, Anion Gap 6, Blood Urea Nitrogen 38H, Creatinine 4.4H, Estimat Glomerular Filtration Rate 14.1, Glucose Level 93, Calcium Level 8.6, Phosphorus Level 4.7, Magnesium Level 2.3, Total Bilirubin 1.1H, Direct Bilirubin 0.8H, Gamma Glutamyl Transpeptidase 164H, Aspartate Amino Transf (AST/SGOT) 19, Alanine Aminotransferase (ALT/SGPT) 19, Alkaline Phosphatase 1085H, Total Protein 6.6, Albumin 2.2L, Globulin 4.4, Albumin/ Globulin Ratio 0.5L Height (Feet): 5 Height (Inches): 3.00 Weight (Pounds): 138 General Appearance: no apparent distress Objective no change Eliazar Fong MD Nov 03, 2018 11:28
--- NOTE | 2018-11-03 11:48 | NUR ---
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 98.2 HR 54 RR 18 B/P 154/62 RA 98% H/H 9.5/28.9 IS: NEURONTIN PO LYRICA PO PROTONIX PO MED/SURG STATUS
[2018-11-03 12:00] VITALS: BP 140/56
--- NOTE | 2018-11-03 13:16 | GI Progress Note ---
Assessment/Plan Problems: (1) Anemia ICD Codes: D64.9 - Anemia, unspecified SNOMED: 711064412 (2) UGIB (upper gastrointestinal bleed) ICD Codes: K92.2 - Gastrointestinal hemorrhage, unspecified SNOMED: 70067687 (3) Abdominal distension ICD Codes: R14.0 - Abdominal distension (gaseous) SNOMED: 11320254 (4) ESRD on dialysis ICD Codes: N18.6 - End stage renal disease; Z99.2 - Dependence on renal dialysis SNOMED: 766399795 Status: stable Status Narrative Discussed with Dr. Don Assessment/Plan Status post paracentesis yielding 2500 cc of fluid >> rule out SBP >> negative Abdominal ultrasound taken today Status post EGD documented with gastritis OB stool positive, thinking OB stool negative monitor H&H, prn transfusions bowel regime ppi fu labs Okay to advance diet Outpatient colonoscopy The patient was seen and examined at bedside and all new and available data was reviewed in the patients chart. I agree with the above findings, impression and plan. (Patient seen earlier today. Signature stamp does not reflect patient encounter time.). - Dannie Don MD Subjective Subjective Denies any abdominal pain Objective Last 24 Hour Vital Signs Date Time Temp Pulse Resp B/P (MAP) Pulse Ox O2 Delivery O2 Flow Rate FiO2 11/03/18 09:59 58 151/63 11/03/18 05:35 133/60 11/03/18 04:00 98.0 55 18 133/60 (84) 100 11/03/18 00:00 98.2 54 18 131/55 (80) 98 11/02/18 21:08 154/62 11/02/18 21:00 Room Air 11/02/18 20:00 98.9 62 18 154/62 (92) 97 11/02/18 16:24 194/76 11/02/18 16:22 66 194/76 11/02/18 16:00 98.7 67 18 194/72 (112) 99 11/02/18 15:36 Room Air Intake and Output 11/02/18 11/03/18 19:00 07:00 Intake Total 120 ml Output Total 2500 ml Balance -2500 ml 120 ml Intake Oral 120 ml Output Hemodialysis UF 2500 ml # Bowel Movements 1 Laboratory Tests Test 11/03/18 04:30 11/03/18 06:40 Stool Occult Blood Negative (NEGATIVE) White Blood Count 7.6 K/UL (4.8-10.8) Red Blood Count 3.12 M/UL (4.70-6.10) L Hemoglobin 9.5 G/DL (14.2-18.0) L Hematocrit 28.9 % (42.0-52.0) L Mean Corpuscular Volume 93 FL (80-99) Mean Corpuscular Hemoglobin 30.3 PG (27.0-31.0) Mean Corpuscular Hemoglobin Concent 32.7 G/DL (32.0-36.0) Red Cell Distribution Width 16.2 % (11.6-14.8) H Platelet Count 217 K/UL (150-450) Mean Platelet Volume 8.1 FL (6.5-10.1) Neutrophils (%) (Auto) 74.3 % (45.0-75.0) Lymphocytes (%) (Auto) 11.6 % (20.0-45.0) L Monocytes (%) (Auto) 8.8 % (1.0-10.0) Eosinophils (%) (Auto) 3.9 % (0.0-3.0) H Basophils (%) (Auto) 1.5 % (0.0-2.0) Sodium Level 137 MMOL/L (136-145) Potassium Level 3.9 MMOL/L (3.5-5.1) Chloride Level 98 MMOL/L (98-107) Carbon Dioxide Level 33 MMOL/L (21-32) H Anion Gap 6 mmol/L (5-15) Blood Urea Nitrogen 38 mg/dL (7-18) H Creatinine 4.4 MG/DL (0.55-1.30) H Estimat Glomerular Filtration Rate 14.1 mL/min (>60) Glucose Level 93 MG/DL (74-106) Calcium Level 8.6 MG/DL (8.5-10.1) Phosphorus Level 4.7 MG/DL (2.5-4.9) Magnesium Level 2.3 MG/DL (1.8-2.4) Total Bilirubin 1.1 MG/DL (0.2-1.0) H Direct Bilirubin 0.8 MG/DL (0.0-0.3) H Gamma Glutamyl Transpeptidase 164 U/L (5-85) H Aspartate Amino Transf (AST/SGOT) 19 U/L (15-37) Alanine Aminotransferase (ALT/SGPT) 19 U/L (12-78) Alkaline Phosphatase 1085 U/L (46-116) H Total Protein 6.6 G/DL (6.4-8.2) Albumin 2.2 G/DL (3.4-5.0) L Globulin 4.4 g/dL Albumin/Globulin Ratio 0.5 (1.0-2.7) L Height (Feet): 5 Height (Inches): 3.00 Weight (Pounds): 138 General Appearance: WD/WN, no apparent distress, alert Cardiovascular: normal rate Respiratory/Chest: normal breath sounds, no respiratory distress Abdominal Exam: normal bowel sounds, non tender, soft Extremities: normal range of motion, non-tender Reji Sherman NP Nov 03, 2018 13:16
[2018-11-03 16:00] VITALS: BP 138/63
--- NOTE | 2018-11-03 17:07 | Diagnostic Imaging Report ---
Indication: Abdominal pain Technique: Ceballos-scale and duplex images of the upper abdomen were obtained Comparison: none Findings: Gallbladder demonstrates no stones. However the gallbladder is nondistended. There is apparent mild thickening of the gallbladder wall, which measures just over 3 mm in thickness. There is suggestion of some comet tail artifact. Sonographic Dhillon's sign is negative. Common bile duct measures 4 mm in diameter. No intrahepatic biliary ductal dilatation. Liver demonstrates normal echogenicity, no focal abnormality. It is enlarged, and there is suggestion of mild surface nodularity. Portal vein and hepatic veins are patent. There is a small amount of ascites fluid present Pancreas is unremarkable. Spleen is unremarkable. Left kidney measures 9.6 cm in length. Right kidney measures 10.5 cm length. Both kidneys demonstrate slightly increased echogenicity. There is mild left renal collecting system fullness. There are echogenic foci within the bilateral renal sinuses. Right kidney demonstrates small cysts . There is considerable thickening of the urinary bladder wall. Dependent debris versus posterior mass is seen within the bladder lumen.. Non-aneurysmal abdominal aorta . Impression: Hepatomegaly Possible hepatic surface nodularity, could indicate early cirrhotic change. Ascites Considerable urinary bladder wall thickening. There is posterior mass versus dependent debris. Consider further evaluation with cystoscopy if clinically indicated Slightly increased renal echogenicity, could indicate medical renal disease Mild left renal collecting system fullness, significance/etiology uncertain Possible nonobstructive bilateral intrarenal calculi Negative for gallstones. Apparent mild gallbladder wall thickening is probably an artifact of under distention, could also be related to hemodynamic abnormalities causing the ascites. Consider hepatobiliary nuclear scan if there is high clinical suspicion of acute cholecystitis Gallbladder wall, tail artifacts, consistent with adenomyomatosis Negative for dilated ducts Incidental finding right renal cysts
--- NOTE | 2018-11-03 17:39 | NUR ---
NURSE NOTES: [facility] Dialysis called and notified regarding order per DR Fong for patient to receive Dialysis on .Porfirio from answering service took message and will notify Dialysis Nurse.
--- NOTE | 2018-11-03 19:00 | NUR ---
NURSE NOTES: Patient is resting,AV shunt to the left upper arm remains with strong bruit and thrill.No complaints of pain or discomfort at this time.Call light with reach,bed alarm is on.
--- NOTE | 2018-11-03 19:16 | NUR ---
HAND-OFF: Report given to CHELSI STONE.
--- NOTE | 2018-11-03 19:20 | NUR ---
HAND-OFF: Report given to CHELSI STONE.
--- NOTE | 2018-11-03 19:45 | NUR ---
NURSE NOTES: Received patient asleep in bed, no apparent signs of distress, with non labored breathing. IV site right AC on saline lock, flushes easily, dressing dry and intact. Pt denies pain. Bed on lowest position, 2 side rails up, call light within reach.
[2018-11-03 20:00] VITALS: BP 148/64
--- NOTE | 2018-11-03 20:45 | Progress Note ---
DATE: 11/03/2018 SUBJECTIVE: This is an elderly male, who currently has a lot of fluids, underwent nephrostomy. He is doing better. OBJECTIVE: VITAL SIGNS: Blood pressure 154/70, pulse 58, temperature 98.1. HEENT: NAD. CHEST: Bilaterally clear. CARDIOVASCULAR: Regular rate and rhythm. No gallop. No murmur. ABDOMEN: Soft. EXTREMITIES: No CCE. NEUROLOGICAL: Generalized weakness. ASSESSMENT AND PLAN: 1. Anemia. 2. Gastrointestinal bleed. 3. Urinary incontinency. 4. Hydronephrosis. 5. Encephalopathy. 6. End-stage renal disease. PLAN: 1. The patient is going for nephrostomy. 2. Continue current medical treatment. 3. Continue gabapentin, hydralazine. 4. Continue Colace, insulin sliding scale, tramadol. 5. GI and Nephrology on case. 6. The patient is . Alvaro Ruvalcaba M.D. DR: Candace JOB#: [id number] CC:
[2018-11-03] MEDS: Lyrica 50mg cap ORAL SCH ×2 (21:00→21:32)
--- NOTE | 2018-11-03 22:13 | General Progress Note ---
Assessment/Plan Assessment/Plan Assessment and recs: # Anemia due to upper gi bleed -- intially present with abdominal distension, seen by gi --> as per egd was done and is unremarkable --> anemia panel has been ordered and revieweed, ferritin of 1632, %sat 28% --> no evidence of hemolysis is noted --> trend hgb as required, 10-->9 range --> started on a ppi, consider sucrafate # Anemia due ot kidney disease --> iron needed if ferritin is <500 or % sat <20% and it is sufficient at this --> continue on outpatient epogen sq --> trend hgb/hct # UGIB (upper gastrointestinal bleed) --> egd neg # ESRD on dialysis --> HD as per renal team The timing of this note does not necessarily reflect the time of the patient was seen Greatly appreciate consultation! Subjective Constitutional: Denies: no symptoms, chills, diaphoresis, fever, malaise, weakness, other HEENT: Denies: no symptoms, eye pain, blurred vision, tearing, double vision, ear pain, ear discharge, nose pain, nose congestion, throat pain, throat swelling, mouth pain, mouth swelling, other Cardiovascular: Denies: no symptoms, chest pain, edema, irregular heart rate, lightheadedness, palpitations, syncope, other Respiratory: Denies: no symptoms, cough, orthopnea, shortness of breath, SOB with excertion, SOB at rest, sputum, stridor, wheezing, other Gastrointestinal/Abdominal: Denies: no symptoms, abdomen distended, abdominal pain, black stools, tarry stools, blood in stool, constipated, diarrhea, difficulty swallowing, nausea, poor appetite, poor fluid intake, rectal bleeding , vomiting, other Genitourinary: Denies: no symptoms, burning, discharge, frequency, flank pain, hematuria, incontinence, pain, urgency, other Neurologic/Psychiatric: Denies: no symptoms, anxiety, depressed, emotional problems, headache, numbness, paresthesia, pre-existing deficit, seizure, tingling, tremors, weakness, other Endocrine: Denies: no symptoms, excessive sweating, flushing, intolerance to cold, intolerance to heat, increased hunger, increased thirst, increased urine, unexplained weight gain, unexplained weight loss, other Hematologic/Lymphatic: Denies: no symptoms, anemia, easy bleeding, easy bruising, other Allergies: Coded Allergies: No Known Allergies (Unverified , 10/28/18) Subjective 10/30: egd unremarkable, hd with vip per Shan rn tomorrow 11/03: seen by bedside, underwent nephrostomy, doing better, hgb 9.5 Objective Last 24 Hour Vital Signs Date Time Temp Pulse Resp B/P (MAP) Pulse Ox O2 Delivery O2 Flow Rate FiO2 11/03/18 21:32 148/64 11/03/18 20:00 98.7 58 20 148/64 (92) 97 11/03/18 16:00 98.1 59 18 138/63 (88) 98 11/03/18 13:58 154/70 11/03/18 12:00 98.1 58 18 140/56 (84) 97 11/03/18 09:59 58 151/63 11/03/18 09:00 Room Air 11/03/18 08:00 97.9 58 18 144/61 (88) 97 11/03/18 05:35 133/60 11/03/18 04:00 98.0 55 18 133/60 (84) 100 11/03/18 00:00 98.2 54 18 131/55 (80) 98 Intake and Output 11/02/18 11/03/18 19:00 07:00 Intake Total 120 ml Output Total 2500 ml Balance -2500 ml 120 ml Intake Oral 120 ml Output Hemodialysis UF 2500 ml # Bowel Movements 1 Laboratory Tests 11/03/18 04:30: Stool Occult Blood Negative 11/03/18 06:40: White Blood Count 7.6, Red Blood Count 3.12L, Hemoglobin 9.5L, Hematocrit 28.9L , Mean Corpuscular Volume 93, Mean Corpuscular Hemoglobin 30.3, Mean Corpuscular Hemoglobin Concent 32.7, Red Cell Distribution Width 16.2H, Platelet Count 217, Mean Platelet Volume 8.1, Neutrophils (%) (Auto) 74.3, Lymphocytes (%) (Auto) 11.6L, Monocytes (%) (Auto) 8.8, Eosinophils (%) (Auto) 3.9H, Basophils (%) (Auto) 1.5, Sodium Level 137, Potassium Level 3.9, Chloride Level 98, Carbon Dioxide Level 33H, Anion Gap 6, Blood Urea Nitrogen 38H, Creatinine 4.4H, Estimat Glomerular Filtration Rate 14.1, Glucose Level 93, Calcium Level 8.6, Phosphorus Level 4.7, Magnesium Level 2.3, Total Bilirubin 1.1H, Direct Bilirubin 0.8H, Gamma Glutamyl Transpeptidase 164H, Aspartate Amino Transf (AST/SGOT) 19, Alanine Aminotransferase (ALT/SGPT) 19, Alkaline Phosphatase 1085H, Total Protein 6.6, Albumin 2.2L, Globulin 4.4, Albumin/ Globulin Ratio 0.5L Height (Feet): 5 Height (Inches): 3.00 Weight (Pounds): 137 Objective Physical Exam General Appearance: A+O x3, NAD HEENT: normocephalic, atraumatic Neck: non-tender, normal alignment Respiratory/Chest: chest wall non-tender, lungs clear Cardiovascular/Chest: normal peripheral pulses, normal rate Abdomen: normal bowel sounds, some minor ttp Extremities: normal range of motion Sahn Chandra MD Nov 03, 2018 22:13
[2018-11-04] VITALS (7 sets, daily range): BP systolic 122–177; BP diastolic 56–70
[2018-11-04] MEDS: HydrALAZINE 50mg tab ORAL SCH ×3 (05:32→21:08)
[2018-11-04] MEDS: NovoLOG Insulin Flexpen SUBQ SCH ×4 (05:42→20:55)
--- NOTE | 2018-11-04 07:24 | NUR ---
HAND-OFF: Report given to Miriam STONE.
--- NOTE | 2018-11-04 07:33 | NUR ---
NURSE NOTES: Patient alert x4, in room air, no sing of shortness of breath or no chest. skin intact. Schedules for dialysis with [facility] for this shift, shunt on left upper AV shunt. IV on RAC 20 G SL. Skin intact. Patient on ACHS and will check blood sugar as schedules. Side rails up x2, bed at lowest position, breaks engaged. Call light within reach. Will keep monitoring.
[2018-11-04 08:12] LABS: BASOPHILS % (AUTO) 1.6 % (0.0-2.0); EOSINOPHILS % (AUTO) 5.4 % (0.0-3.0); HEMATOCRIT 29.2 % (42.0-52.0); HEMOGLOBIN 9.5 G/DL (14.2-18.0); LYMPHOCYTES % (AUTO) 13.4 % (20.0-45.0); MEAN CORPUSCULAR VOLUME 93 FL (80-99); MONOCYTES % (AUTO) 9.8 % (1.0-10.0); NEUTROPHILS % (AUTO) 69.8 % (45.0-75.0); PLATELET COUNT 212 K/UL (150-450); RED BLOOD COUNT 3.14 M/UL (4.70-6.10); RED CELL DISTRIBUTION WIDTH 16.1 % (11.6-14.8); WHITE BLOOD COUNT 7.4 K/UL (4.8-10.8)
[2018-11-04] MEDS: Docusate 100mg cap ORAL SCH ×3 (09:02→17:32)
[2018-11-04] MEDS: Neomycin Sulfate 500mg Tab ORAL SCH ×2 (09:03→12:29)
[2018-11-04 09:31] LABS: ANION GAP 6 mmol/L (5-15); BLOOD UREA NITROGEN 50 mg/dL (7-18); CALCIUM 8.3 MG/DL (8.5-10.1); CARBON DIOXIDE 34 MMOL/L (21-32); CHLORIDE 96 MMOL/L (98-107); CREATININE 5.5 MG/DL (0.55-1.30); PHOSPHORUS 5.3 MG/DL (2.5-4.9); POTASSIUM 4.5 MMOL/L (3.5-5.1); SODIUM 136 MMOL/L (136-145)
--- NOTE | 2018-11-04 10:57 | GI Progress Note ---
Assessment/Plan Problems: (1) Anemia ICD Codes: D64.9 - Anemia, unspecified SNOMED: 461525633 (2) UGIB (upper gastrointestinal bleed) ICD Codes: K92.2 - Gastrointestinal hemorrhage, unspecified SNOMED: 64195046 (3) Abdominal distension ICD Codes: R14.0 - Abdominal distension (gaseous) SNOMED: 16180469 (4) ESRD on dialysis ICD Codes: N18.6 - End stage renal disease; Z99.2 - Dependence on renal dialysis SNOMED: 712783277 Status: stable Status Narrative Discussed with Dr. Don Assessment/Plan Status post paracentesis yielding 2500 cc of fluid >> rule out SBP >> negative Abdominal ultrasound taken today Status post EGD documented with gastritis OB stool positive, second OB stool negative monitor H&H, prn transfusions renal diet bowel regime ppi fu labs Okay to advance diet Outpatient colonoscopy The patient was seen and examined at bedside and all new and available data was reviewed in the patients chart. I agree with the above findings, impression and plan. (Patient seen earlier today. Signature stamp does not reflect patient encounter time.). - Dannie Don MD Subjective Subjective Denies any abdominal pain Wants to be discharged Objective Last 24 Hour Vital Signs Date Time Temp Pulse Resp B/P (MAP) Pulse Ox O2 Delivery O2 Flow Rate FiO2 11/04/18 09:00 Room Air 11/04/18 08:00 98.0 88 18 149/70 (96) 97 11/04/18 05:32 158/66 11/04/18 04:00 98.3 56 20 158/66 (96) 96 11/04/18 00:08 98.6 59 20 131/69 (89) 99 11/03/18 21:32 148/64 11/03/18 21:00 Room Air 11/03/18 20:00 98.7 58 20 148/64 (92) 97 11/03/18 16:00 98.1 59 18 138/63 (88) 98 11/03/18 13:58 154/70 11/03/18 12:00 98.1 58 18 140/56 (84) 97 Intake and Output 11/03/18 11/04/18 19:00 07:00 Intake Total 355 ml Balance 355 ml Intake Oral 355 ml # Voids 1 3 # Bowel Movements 1 Laboratory Tests Test 11/04/18 07:15 White Blood Count 7.4 K/UL (4.8-10.8) Red Blood Count 3.14 M/UL (4.70-6.10) L Hemoglobin 9.5 G/DL (14.2-18.0) L Hematocrit 29.2 % (42.0-52.0) L Mean Corpuscular Volume 93 FL (80-99) Mean Corpuscular Hemoglobin 30.2 PG (27.0-31.0) Mean Corpuscular Hemoglobin Concent 32.5 G/DL (32.0-36.0) Red Cell Distribution Width 16.1 % (11.6-14.8) H Platelet Count 212 K/UL (150-450) Mean Platelet Volume 7.4 FL (6.5-10.1) Neutrophils (%) (Auto) 69.8 % (45.0-75.0) Lymphocytes (%) (Auto) 13.4 % (20.0-45.0) L Monocytes (%) (Auto) 9.8 % (1.0-10.0) Eosinophils (%) (Auto) 5.4 % (0.0-3.0) H Basophils (%) (Auto) 1.6 % (0.0-2.0) Sodium Level 136 MMOL/L (136-145) Potassium Level 4.5 MMOL/L (3.5-5.1) Chloride Level 96 MMOL/L (98-107) L Carbon Dioxide Level 34 MMOL/L (21-32) H Anion Gap 6 mmol/L (5-15) Blood Urea Nitrogen 50 mg/dL (7-18) H Creatinine 5.5 MG/DL (0.55-1.30) H Estimat Glomerular Filtration Rate 10.9 mL/min (>60) Glucose Level 90 MG/DL (74-106) Calcium Level 8.3 MG/DL (8.5-10.1) L Phosphorus Level 5.3 MG/DL (2.5-4.9) H Magnesium Level 2.6 MG/DL (1.8-2.4) H Height (Feet): 5 Height (Inches): 3.00 Weight (Pounds): 139 General Appearance: WD/WN, no apparent distress, alert Cardiovascular: normal rate Respiratory/Chest: normal breath sounds, no respiratory distress Abdominal Exam: normal bowel sounds, non tender, soft, ascites Extremities: normal range of motion, non-tender Reji Sherman NP Nov 04, 2018 10:57
--- NOTE | 2018-11-04 12:45 | Nephrology Progress Note ---
Assessment/Plan Problem List: (1) ESRD on dialysis (2) UGIB (upper gastrointestinal bleed) (3) Abdominal distension (4) Anemia (5) Diabetes mellitus (6) Bradyarrhythmia Assessment ESRD Upper GI Bleed Abdominal distension DM HTN Anemia h/o CVA Bradycardia Plan HD next 11/04 transfused adjust bp meds per GI Renal diet Monitor H&H Stop HR lowering meds per orders CT: Moderate to severe thickening of the urinary bladder wall. Correlate for cystitis. Moderate ascites Hepatomegaly with fatty infiltration. Complex right pleural effusion with associated compressive atelectasis and/or pneumonia. Anasarca Small nodes in the retroperitoneum/mesentery, nonspecific. Hiatal hernia. Subjective ROS Limited/Unobtainable: No Objective Objective Last 24 Hour Vital Signs Date Time Temp Pulse Resp B/P (MAP) Pulse Ox O2 Delivery O2 Flow Rate FiO2 11/04/18 12:00 98.3 64 18 139/68 (91) 98 11/04/18 09:00 Room Air 11/04/18 08:00 98.0 88 18 149/70 (96) 97 11/04/18 05:32 158/66 11/04/18 04:00 98.3 56 20 158/66 (96) 96 11/04/18 00:08 98.6 59 20 131/69 (89) 99 11/03/18 21:32 148/64 11/03/18 21:00 Room Air 11/03/18 20:00 98.7 58 20 148/64 (92) 97 11/03/18 16:00 98.1 59 18 138/63 (88) 98 11/03/18 13:58 154/70 Intake and Output 11/03/18 11/04/18 19:00 07:00 Intake Total 355 ml Balance 355 ml Intake Oral 355 ml # Voids 1 3 # Bowel Movements 1 Laboratory Tests 11/04/18 07:15: White Blood Count 7.4, Red Blood Count 3.14L, Hemoglobin 9.5L, Hematocrit 29.2L , Mean Corpuscular Volume 93, Mean Corpuscular Hemoglobin 30.2, Mean Corpuscular Hemoglobin Concent 32.5, Red Cell Distribution Width 16.1H, Platelet Count 212, Mean Platelet Volume 7.4, Neutrophils (%) (Auto) 69.8, Lymphocytes (%) (Auto) 13.4L, Monocytes (%) (Auto) 9.8, Eosinophils (%) (Auto) 5.4H, Basophils (%) (Auto) 1.6, Sodium Level 136, Potassium Level 4.5, Chloride Level 96L, Carbon Dioxide Level 34H, Anion Gap 6, Blood Urea Nitrogen 50H, Creatinine 5.5H, Estimat Glomerular Filtration Rate 10.9, Glucose Level 90, Calcium Level 8.3L, Phosphorus Level 5.3H, Magnesium Level 2.6H Height (Feet): 5 Height (Inches): 3.00 Weight (Pounds): 139 General Appearance: no apparent distress Objective no change Eliazar Fong MD Nov 04, 2018 12:45
--- NOTE | 2018-11-04 14:33 | NUR ---
NURSE NOTES: Patient is getting dialysis.
--- NOTE | 2018-11-04 16:54 | NUR ---
NURSE NOTES: Dialysis nurse removed 2 liters.
--- NOTE | 2018-11-04 17:45 | NUR ---
NURSE NOTES: Patient didn't like the dinner tray he got, I called kitchen to order another tray. Waiting another tray.
--- NOTE | 2018-11-04 19:04 | NUR ---
HAND-OFF: Report given to CHASE Snyder.
--- NOTE | 2018-11-04 19:22 | General Progress Note ---
Assessment/Plan Assessment/Plan Assessment and recs: # Anemia due to upper gi bleed -- intially present with abdominal distension, seen by gi --> as per egd was done and is unremarkable --> anemia panel has been ordered and revieweed, ferritin of 1632, %sat 28% --> no evidence of hemolysis is noted --> trend hgb as required, 10-->9 range --> started on a ppi, consider sucrafate # Anemia due ot kidney disease --> iron needed if ferritin is <500 or % sat <20% and it is sufficient at this --> continue on outpatient epogen sq --> trend hgb/hct # UGIB (upper gastrointestinal bleed) --> egd neg --> gi following # ESRD on dialysis --> HD as per renal team The timing of this note does not necessarily reflect the time of the patient was seen Greatly appreciate consultation! Subjective Constitutional: Denies: no symptoms, chills, diaphoresis, fever, malaise, weakness, other HEENT: Denies: no symptoms, eye pain, blurred vision, tearing, double vision, ear pain, ear discharge, nose pain, nose congestion, throat pain, throat swelling, mouth pain, mouth swelling, other Cardiovascular: Denies: no symptoms, chest pain, edema, irregular heart rate, lightheadedness, palpitations, syncope, other Respiratory: Denies: no symptoms, cough, orthopnea, shortness of breath, SOB with excertion, SOB at rest, sputum, stridor, wheezing, other Gastrointestinal/Abdominal: Denies: no symptoms, abdomen distended, abdominal pain, black stools, tarry stools, blood in stool, constipated, diarrhea, difficulty swallowing, nausea, poor appetite, poor fluid intake, rectal bleeding , vomiting, other Genitourinary: Denies: no symptoms, burning, discharge, frequency, flank pain, hematuria, incontinence, pain, urgency, other Neurologic/Psychiatric: Denies: no symptoms, anxiety, depressed, emotional problems, headache, numbness, paresthesia, pre-existing deficit, seizure, tingling, tremors, weakness, other Endocrine: Denies: no symptoms, excessive sweating, flushing, intolerance to cold, intolerance to heat, increased hunger, increased thirst, increased urine, unexplained weight gain, unexplained weight loss, other Allergies: Coded Allergies: No Known Allergies (Unverified , 10/28/18) Subjective 10/30: egd unremarkable, hd with vip per Shan rn tomorrow 11/03: seen by bedside, underwent nephrostomy, doing better, hgb 9.5 11/04: no events, getting hd today, no f.c Objective Last 24 Hour Vital Signs Date Time Temp Pulse Resp B/P (MAP) Pulse Ox O2 Delivery O2 Flow Rate FiO2 11/04/18 19:03 Room Air 11/04/18 16:00 99.9 58 19 122/56 (78) 96 11/04/18 12:00 98.3 64 18 139/68 (91) 98 11/04/18 09:00 Room Air 11/04/18 08:00 98.0 88 18 149/70 (96) 97 11/04/18 05:32 158/66 11/04/18 04:00 98.3 56 20 158/66 (96) 96 11/04/18 00:08 98.6 59 20 131/69 (89) 99 11/03/18 21:32 148/64 11/03/18 21:00 Room Air 11/03/18 20:00 98.7 58 20 148/64 (92) 97 Intake and Output 11/03/18 11/04/18 19:00 07:00 Intake Total 355 ml Balance 355 ml Intake Oral 355 ml # Voids 1 3 # Bowel Movements 1 Laboratory Tests 11/04/18 07:15: White Blood Count 7.4, Red Blood Count 3.14L, Hemoglobin 9.5L, Hematocrit 29.2L , Mean Corpuscular Volume 93, Mean Corpuscular Hemoglobin 30.2, Mean Corpuscular Hemoglobin Concent 32.5, Red Cell Distribution Width 16.1H, Platelet Count 212, Mean Platelet Volume 7.4, Neutrophils (%) (Auto) 69.8, Lymphocytes (%) (Auto) 13.4L, Monocytes (%) (Auto) 9.8, Eosinophils (%) (Auto) 5.4H, Basophils (%) (Auto) 1.6, Sodium Level 136, Potassium Level 4.5, Chloride Level 96L, Carbon Dioxide Level 34H, Anion Gap 6, Blood Urea Nitrogen 50H, Creatinine 5.5H, Estimat Glomerular Filtration Rate 10.9, Glucose Level 90, Calcium Level 8.3L, Phosphorus Level 5.3H, Magnesium Level 2.6H Height (Feet): 5 Height (Inches): 3.00 Weight (Pounds): 139 Objective Physical Exam General Appearance: A+O x3, NAD HEENT: normocephalic, atraumatic Neck: non-tender, normal alignment Respiratory/Chest: chest wall non-tender, lungs clear Cardiovascular/Chest: normal peripheral pulses, normal rate Abdomen: normal bowel sounds, some minor ttp Extremities: normal range of motion Shan Chandra MD Nov 04, 2018 19:22
--- NOTE | 2018-11-04 19:28 | NUR ---
Received patient sleeping in bed, no acute signs of distress. IV site right AC asymptomatic, dressing dry and intact. Bed on lowest position, 2 side rails up. Bed alarm on.
[2018-11-04] MEDS: Lyrica 50mg cap ORAL SCH ×2 (20:47→21:00)
[2018-11-05] VITALS: BP 139/68
--- NOTE | 2018-11-05 00:15 | Progress Note ---
DATE: 11/04/2018 NOTE: "POOR AUDIO QUALITY" SUBJECTIVE: This is an elderly male, who is currently doing better. Shortness of breath is improving and he is having hemodialysis, status post nephrostomy. OBJECTIVE: VITAL SIGNS: Blood pressure is 130/70, pulse 60, respirations 18. No fever. CHEST: Bilaterally clear. CARDIOVASCULAR: Regular rhythm. No gallop. No murmur. ABDOMEN: Soft. Positive bowel sounds. Nontender. EXTREMITIES: No CCE. NEUROLOGIC: The patient has no focal deficit. ASSESSMENT: 1. Fluid overload. 2. CHF. 3. Hydronephrosis. 4. End-stage renal disease. PLAN: We will currently continue current treatment. Continue . Continue bronchodilator treatments. Alvaro Ruvalcaba M.D. DR: RIVER JOB#: [id number] CC:
[2018-11-05 04:00] VITALS: BP 142/50
[2018-11-05] MEDS: HydrALAZINE 50mg tab ORAL SCH (05:13)
[2018-11-05] MEDS: NovoLOG Insulin Flexpen SUBQ SCH (05:52)
--- NOTE | 2018-11-05 07:03 | NUR ---
HAND-OFF: Report given to CHASE Pineda.
--- NOTE | 2018-11-05 07:14 | NUR ---
NURSE NOTES: Patient alert x4, in room air, no sign of distress and shortness of breath. Urinal at the bed side and its within reach. IV RAC flushes well. AV shunt on the Left upper arm, no IV and blood pressure on this hand, note posted at the head of the bed and geriatric assistant Erin notified. Patient on ACHS, and will monitor blood sugar as scheduled. Side rails up x2, bed at lowest position, breaks engaged. Call light within reach. Will keep monitoring.
[2018-11-05 08:00] VITALS: BP 161/72
[2018-11-05 08:19] LABS: BASOPHILS % (AUTO) 1.3 % (0.0-2.0); EOSINOPHILS % (AUTO) 5.5 % (0.0-3.0); HEMATOCRIT 29.5 % (42.0-52.0); HEMOGLOBIN 9.4 G/DL (14.2-18.0); MEAN CORPUSCULAR VOLUME 94 FL (80-99); MONOCYTES % (AUTO) 11.3 % (1.0-10.0); NEUTROPHILS % (AUTO) 67.9 % (45.0-75.0); PLATELET COUNT 183 K/UL (150-450); RED BLOOD COUNT 3.15 M/UL (4.70-6.10); RED CELL DISTRIBUTION WIDTH 15.7 % (11.6-14.8); WHITE BLOOD COUNT 7.5 K/UL (4.8-10.8)
[2018-11-05 08:38] VITALS: BP 161/72
[2018-11-05] MEDS: Docusate 100mg cap ORAL SCH (08:38)
[2018-11-05 08:43] LABS: ANION GAP 9 mmol/L (5-15); BLOOD UREA NITROGEN 31 mg/dL (7-18); CALCIUM 8.6 MG/DL (8.5-10.1); CARBON DIOXIDE 29 MMOL/L (21-32); CHLORIDE 98 MMOL/L (98-107); POTASSIUM 3.9 MMOL/L (3.5-5.1); SODIUM 136 MMOL/L (136-145)
--- NOTE | 2018-11-05 09:58 | NUR ---
*-* DISCHARGE PLANNING *-* PATIENT HAS BEEN REFERRED BACK TO: [facility] P:[phone] F:[phone]
--- NOTE | 2018-11-05 10:31 | NUR ---
*-* DISCHARGE PLANNING *-* PATIENT IS DISCHARGE BACK TO: [facility] ROOM# 102-C SKILLED T: [phone] FOR NURSE TO NURSE REPORT [facility] HAS BEEN ARRANGED FOR PRESCHOOL ASSISTANT PRINCIPAL AT [address] [phone]
--- NOTE | 2018-11-05 11:14 | GI Progress Note ---
Assessment/Plan Problems: (1) Anemia ICD Codes: D64.9 - Anemia, unspecified SNOMED: 624330033 (2) UGIB (upper gastrointestinal bleed) ICD Codes: K92.2 - Gastrointestinal hemorrhage, unspecified SNOMED: 21291040 (3) Abdominal distension ICD Codes: R14.0 - Abdominal distension (gaseous) SNOMED: 57684792 (4) ESRD on dialysis ICD Codes: N18.6 - End stage renal disease; Z99.2 - Dependence on renal dialysis SNOMED: 233655436 Status: stable, unchanged Status Narrative Discussed with Dr. Don Assessment/Plan Status post paracentesis yielding 2500 cc of fluid >> rule out SBP >> negative Abdominal ultrasound taken today Status post EGD documented with gastritis OB stool positive, second OB stool negative monitor H&H, prn transfusions renal diet bowel regime ppi fu labs Okay to advance diet Outpatient colonoscopy and follow-up Okay to DC per GI standpoint The patient was seen and examined at bedside and all new and available data was reviewed in the patients chart. I agree with the above findings, impression and plan. (Patient seen earlier today. Signature stamp does not reflect patient encounter time.). - Dannie Don MD Subjective Subjective Denies any abdominal pain Wants to be discharged Objective Last 24 Hour Vital Signs Date Time Temp Pulse Resp B/P (MAP) Pulse Ox O2 Delivery O2 Flow Rate FiO2 11/05/18 09:00 Room Air 11/05/18 08:38 61 161/72 11/05/18 08:00 98.1 61 20 161/72 (101) 97 11/05/18 05:13 142/50 11/05/18 04:00 98.3 60 19 142/50 (80) 99 11/05/18 00:00 99.4 61 19 139/68 (91) 100 11/04/18 22:00 167/67 (100) 11/04/18 21:08 177/68 11/04/18 20:00 98.7 60 20 177/68 (104) 95 11/04/18 19:03 Room Air 11/04/18 16:00 99.9 58 19 122/56 (78) 96 11/04/18 12:00 98.3 64 18 139/68 (91) 98 Intake and Output 11/04/18 11/05/18 19:00 07:00 Intake Total 880 ml 120 ml Output Total 0 ml Balance 880 ml 120 ml Intake Oral 880 ml 120 ml Output Urine Total 0 ml # Voids 3 Laboratory Tests Test 11/05/18 06:50 White Blood Count 7.5 K/UL (4.8-10.8) Red Blood Count 3.15 M/UL (4.70-6.10) L Hemoglobin 9.4 G/DL (14.2-18.0) L Hematocrit 29.5 % (42.0-52.0) L Mean Corpuscular Volume 94 FL (80-99) Mean Corpuscular Hemoglobin 30.0 PG (27.0-31.0) Mean Corpuscular Hemoglobin Concent 32.0 G/DL (32.0-36.0) Red Cell Distribution Width 15.7 % (11.6-14.8) H Platelet Count 183 K/UL (150-450) Mean Platelet Volume 7.2 FL (6.5-10.1) Neutrophils (%) (Auto) 67.9 % (45.0-75.0) Lymphocytes (%) (Auto) 14.0 % (20.0-45.0) L Monocytes (%) (Auto) 11.3 % (1.0-10.0) H Eosinophils (%) (Auto) 5.5 % (0.0-3.0) H Basophils (%) (Auto) 1.3 % (0.0-2.0) Sodium Level 136 MMOL/L (136-145) Potassium Level 3.9 MMOL/L (3.5-5.1) Chloride Level 98 MMOL/L (98-107) Carbon Dioxide Level 29 MMOL/L (21-32) Anion Gap 9 mmol/L (5-15) Blood Urea Nitrogen 31 mg/dL (7-18) H Creatinine 4.0 MG/DL (0.55-1.30) H Estimat Glomerular Filtration Rate 15.8 mL/min (>60) Glucose Level 91 MG/DL (74-106) Calcium Level 8.6 MG/DL (8.5-10.1) Height (Feet): 5 Height (Inches): 3.00 Weight (Pounds): 134 General Appearance: WD/WN, no apparent distress, alert Cardiovascular: normal rate Respiratory/Chest: normal breath sounds, no respiratory distress Abdominal Exam: normal bowel sounds, non tender, soft Extremities: normal range of motion, non-tender Reji Sherman NP Nov 05, 2018 11:14
--- NOTE | 2018-11-05 11:34 | NUR ---
NURSE NOTES: Patient discharged around 1130, left the floor accompanied by two ambulance personnel. Report given to Janet at [facility], also family member Serena was notified regarding patient's discharge to [facility]. Printed package given to ambulance personnel. Patient's vital was stable upon discharge. MRSA nare and rectum collected before discharge, since patient is hemodialysis patient. Belonging lists signed by discharging nurse and patient. All belongings and money $ 65 is with patient. Patient left the floor by pal and was stable.
--- NOTE | 2018-11-05 13:53 | General Progress Note ---
Assessment/Plan Assessment/Plan Assessment and recs: # Anemia due to upper gi bleed -- intially present with abdominal distension, seen by gi --> as per egd was done and is unremarkable --> anemia panel has been ordered and revieweed, ferritin of 1632, %sat 28% --> no evidence of hemolysis is noted --> trend hgb as required, 10-->9 range --> started on a ppi, consider sucrafate # Anemia due ot kidney disease --> iron needed if ferritin is <500 or % sat <20% and it is sufficient at this --> continue on outpatient epogen sq --> trend hgb/hct # UGIB (upper gastrointestinal bleed) --> egd neg --> gi following # ESRD on dialysis --> HD as per renal team The timing of this note does not necessarily reflect the time of the patient was seen Greatly appreciate consultation! Subjective Constitutional: Denies: no symptoms, chills, diaphoresis, fever, malaise, weakness, other HEENT: Denies: no symptoms, eye pain, blurred vision, tearing, double vision, ear pain, ear discharge, nose pain, nose congestion, throat pain, throat swelling, mouth pain, mouth swelling, other Cardiovascular: Denies: no symptoms, chest pain, edema, irregular heart rate, lightheadedness, palpitations, syncope, other Respiratory: Denies: no symptoms, cough, orthopnea, shortness of breath, SOB with excertion, SOB at rest, sputum, stridor, wheezing, other Gastrointestinal/Abdominal: Denies: no symptoms, abdomen distended, abdominal pain, black stools, tarry stools, blood in stool, constipated, diarrhea, difficulty swallowing, nausea, poor appetite, poor fluid intake, rectal bleeding , vomiting, other Genitourinary: Denies: no symptoms, burning, discharge, frequency, flank pain, hematuria, incontinence, pain, urgency, other Neurologic/Psychiatric: Denies: no symptoms, anxiety, depressed, emotional problems, headache, numbness, paresthesia, pre-existing deficit, seizure, tingling, tremors, weakness, other Endocrine: Denies: no symptoms, excessive sweating, flushing, intolerance to cold, intolerance to heat, increased hunger, increased thirst, increased urine, unexplained weight gain, unexplained weight loss, other Hematologic/Lymphatic: Denies: no symptoms, anemia, easy bleeding, easy bruising, other Allergies: Coded Allergies: No Known Allergies (Unverified , 10/28/18) Subjective 10/30: egd unremarkable, hd with vip per Shan rn tomorrow 11/03: seen by bedside, underwent nephrostomy, doing better, hgb 9.5 11/04: no events, getting hd today, no f.c 11/05: Pt is awake and comfortable, no events Objective Last 24 Hour Vital Signs Date Time Temp Pulse Resp B/P (MAP) Pulse Ox O2 Delivery O2 Flow Rate FiO2 11/05/18 09:00 Room Air 11/05/18 08:38 61 161/72 11/05/18 08:00 98.1 61 20 161/72 (101) 97 11/05/18 05:13 142/50 11/05/18 04:00 98.3 60 19 142/50 (80) 99 11/05/18 00:00 99.4 61 19 139/68 (91) 100 11/04/18 22:00 167/67 (100) 11/04/18 21:08 177/68 11/04/18 20:00 98.7 60 20 177/68 (104) 95 11/04/18 19:03 Room Air 11/04/18 16:00 99.9 58 19 122/56 (78) 96 Intake and Output 11/04/18 11/05/18 19:00 07:00 Intake Total 880 ml 120 ml Output Total 0 ml Balance 880 ml 120 ml Intake Oral 880 ml 120 ml Output Urine Total 0 ml # Voids 3 Laboratory Tests 11/05/18 06:50: White Blood Count 7.5, Red Blood Count 3.15L, Hemoglobin 9.4L, Hematocrit 29.5L , Mean Corpuscular Volume 94, Mean Corpuscular Hemoglobin 30.0, Mean Corpuscular Hemoglobin Concent 32.0, Red Cell Distribution Width 15.7H, Platelet Count 183, Mean Platelet Volume 7.2, Neutrophils (%) (Auto) 67.9, Lymphocytes (%) (Auto) 14.0L, Monocytes (%) (Auto) 11.3H, Eosinophils (%) (Auto ) 5.5H, Basophils (%) (Auto) 1.3, Sodium Level 136, Potassium Level 3.9, Chloride Level 98, Carbon Dioxide Level 29, Anion Gap 9, Blood Urea Nitrogen 31H , Creatinine 4.0H, Estimat Glomerular Filtration Rate 15.8, Glucose Level 91, Calcium Level 8.6 Height (Feet): 5 Height (Inches): 3.00 Weight (Pounds): 134 Objective Physical Exam General Appearance: A+O x3, NAD HEENT: normocephalic, atraumatic Neck: non-tender, normal alignment Respiratory/Chest: chest wall non-tender, lungs clear Cardiovascular/Chest: normal peripheral pulses, normal rate Abdomen: normal bowel sounds, some minor ttp Extremities: normal range of motion Shan Chandra MD Nov 05, 2018 13:53
--- NOTE | 2018-11-05 18:15 | Progress Note ---
DATE: 11/05/2018 SUBJECTIVE: This is elderly male who is currently doing better. Short of breath is improving. The patient is status post nephrostomy. OBJECTIVE: VITAL SIGNS: Stable. Blood pressure is 161/72 and pulse 60. No fever. CHEST: Bilaterally clear. CARDIOVASCULAR: Regular rhythm. ABDOMEN: Soft. LABORATORY DATA: Current hemoglobin 9.5. White count 7.5. Chemistry, BUN 31 and creatinine 4. HOSPITAL COURSE: The patient did very well. Alvaro Ruvalcaba M.D. DR: MARIANELA JOB#: [id number] CC:
--- NOTE | 2018-11-05 20:15 | Nephrology Progress Note ---
Assessment/Plan Problem List: (1) ESRD on dialysis (2) UGIB (upper gastrointestinal bleed) (3) Abdominal distension (4) Anemia (5) Diabetes mellitus (6) Bradyarrhythmia Assessment ESRD Upper GI Bleed Abdominal distension DM HTN Anemia h/o CVA Bradycardia Plan HD next 11/06 transfused adjust bp meds per GI Renal diet Monitor H&H Stop HR lowering meds per orders ? DC CT: Moderate to severe thickening of the urinary bladder wall. Correlate for cystitis. Moderate ascites Hepatomegaly with fatty infiltration. Complex right pleural effusion with associated compressive atelectasis and/or pneumonia. Anasarca Small nodes in the retroperitoneum/mesentery, nonspecific. Hiatal hernia. Subjective ROS Limited/Unobtainable: No Interval Events/Complaints seen at 10.30 am Constitutional: Reports: malaise Objective Objective Last 24 Hour Vital Signs Date Time Temp Pulse Resp B/P (MAP) Pulse Ox O2 Delivery O2 Flow Rate FiO2 11/05/18 09:00 Room Air 11/05/18 08:38 61 161/72 11/05/18 08:00 98.1 61 20 161/72 (101) 97 11/05/18 05:13 142/50 11/05/18 04:00 98.3 60 19 142/50 (80) 99 11/05/18 00:00 99.4 61 19 139/68 (91) 100 11/04/18 22:00 167/67 (100) 11/04/18 21:08 177/68 Intake and Output 11/04/18 11/05/18 19:00 07:00 Intake Total 880 ml 120 ml Output Total 0 ml Balance 880 ml 120 ml Intake Oral 880 ml 120 ml Output Urine Total 0 ml # Voids 3 Laboratory Tests 11/05/18 06:50: White Blood Count 7.5, Red Blood Count 3.15L, Hemoglobin 9.4L, Hematocrit 29.5L , Mean Corpuscular Volume 94, Mean Corpuscular Hemoglobin 30.0, Mean Corpuscular Hemoglobin Concent 32.0, Red Cell Distribution Width 15.7H, Platelet Count 183, Mean Platelet Volume 7.2, Neutrophils (%) (Auto) 67.9, Lymphocytes (%) (Auto) 14.0L, Monocytes (%) (Auto) 11.3H, Eosinophils (%) (Auto ) 5.5H, Basophils (%) (Auto) 1.3, Sodium Level 136, Potassium Level 3.9, Chloride Level 98, Carbon Dioxide Level 29, Anion Gap 9, Blood Urea Nitrogen 31H , Creatinine 4.0H, Estimat Glomerular Filtration Rate 15.8, Glucose Level 91, Calcium Level 8.6 Height (Feet): 5 Height (Inches): 3.00 Weight (Pounds): 134 General Appearance: no apparent distress Objective no change Eliazar Fong MD Nov 05, 2018 20:15
--- NOTE | 2018-11-06 15:41 | Discharge Summary ---
Discharge Summary Discharge Summary _ DATE OF ADMISSION: 10/28/2018 DATE OF DISCHARGE: 11/05/2018 DISCHARGED BY: Dr. Alvaro Ruvalcaba CONSULTANTS: Dr. Eliazar Don BRIEF HOSPITAL COURSE: Patient is a 53-year-old male, who came to the emergency room for complaints of coffee-ground emesis and melena 2 days prior to admission. He was complaining of mild to moderate abdominal pain and mild nausea but has been tolerating diet. There was no fever or chills. He has medical history significant for end-stage renal disease, hypertension, borderline diabetes, peripheral vascular disease and generalized weakness. On evaluation at ED, blood pressure was 166/72, pulse rate 50. Blood work did not show any leukocytosis. Hemoglobin was 10, hematocrit 33, platelet count 147. BUN was 63, creatinine 4.8. Electrolytes were normal. Lipase was normal. LFTs normal. Abdominal and pelvic CT showed moderate to severe thickening of the urinary bladder. He was then admitted for evaluation of upper GI bleed. Special Assemblies Supervisor was consulted for inpatient hemodialysis. GI was consulted. Patient was placed on n.p.o. He was given IV hydration. Blood levels were monitored. He was given proton pump inhibitors. Stool OB positive. On 10/30/2018, he underwent upper endoscopy. Findings showed gastritis otherwise normal upper endoscopic examination. Pathology result was negative for H. pylori. He was noted to have abdominal ascites. He underwent paracentesis yielding 2500 cc of fluid. Pathology from ascitic fluid was negative for malignant cells. Nylon Mender was consulted. Anemia workup showed ferritin level of 1632. Saturation of 20%. There was no hemolysis noted. No iron was needed. He had a drop in hemoglobin and was given 1 unit packed RBC blood transfusion. Hemoglobin levels were stable. He was tolerating diet well. He was eventually discharged back to snf. FINAL DIAGNOSES: Upper GI bleed status post upper End-stage renal disease on hemodialysis Diabetes mellitus Hypertension Bradycardia Anemia due to upper GI bleed Anemia due to disease Drop in hemoglobin requiring blood transfusion Ascites status post paracenteses DISPOSITION: Patient was discharged to a SNF. DISCHARGE MEDICATIONS: Refer to Discharge Medication List. I have been assigned to complete a discharge summary on this account, I was not involved with the patient's management. Bekci Guerra NP Nov 06, 2018 15:41
== END 2018-11-05 11:30 | DRG 377 ==
LOC: EDBD 13:18 → EMR 14:03 → 2E 14:15 → EDBEDREQ 14:56 → 2E 10-29 23:43 → 4E 10-31 04:49
PROC: 0DB68ZX Excision of Stomach, Via Natural or Artificial Opening Endoscopic, Diagnostic (ICD-10-PCS; principal; 2018-10-30 11:16)
PROC: 0W9G3ZZ Drainage of Peritoneal Cavity, Percutaneous Approach (ICD-10-PCS; principal; 2018-10-30 11:16)
PROC: 30233N1 Transfusion of Nonautologous Red Blood Cells into Peripheral Vein, Percutaneous Approach (ICD-10-PCS; 2018-11-02)
PROC: 5A1D70Z Performance of Urinary Filtration, Intermittent, Less than 6 Hours Per Day (ICD-10-PCS; 2018-11-03)
DX: K92.2 Gastrointestinal hemorrhage, unspecified (principal); N18.6 End stage renal disease; I12.0 Hypertensive chronic kidney disease with stage 5 chronic kidney disease or end stage renal disease; R18.8 Other ascites; G93.40 Encephalopathy, unspecified; N13.30 Unspecified hydronephrosis; K29.70 Gastritis, unspecified, without bleeding; E11.22 Type 2 diabetes mellitus with diabetic chronic kidney disease; E78.5 Hyperlipidemia, unspecified; K21.9 Gastro-esophageal reflux disease without esophagitis; R00.1 Bradycardia, unspecified; E11.51 Type 2 diabetes mellitus with diabetic peripheral angiopathy without gangrene; R79.89 Other specified abnormal findings of blood chemistry; D63.1 Anemia in chronic kidney disease; K74.60 Unspecified cirrhosis of liver; E87.70 Fluid overload, unspecified; R32 Unspecified urinary incontinence; D50.0 Iron deficiency anemia secondary to blood loss (chronic); Z99.2 Dependence on renal dialysis; Z86.73 Personal history of transient ischemic attack (TIA), and cerebral infarction without residual deficits
CPT/HCPCS: 36415; 74177; 76700; 76942; 80048; 80053; 80061; 81003; 82140; 82248; 82270; 82378; 82607; 82728; 82746; 82962; 82977; 83036; 83540; 83550; 83690; 83735; 83880; 84100; 84439; 84443; 84550; 85007; 85025; 85044; 85610; 85730; 86140; 86703; 86705; 86709; 86803; 86850; 86900; 86901; 86920; 87081; 87340; 88104; 93005; 94003; 94150; 94664; 96361; 96374; 96375; 99285; J1815; J2405; S5561

== ENCOUNTER 2020-02-08 14:19 | Inpatient (IN) | payer MEDICARE, MEDICAID ==
[~2020-02-08] VITALS: Ht 165.1 cm; Wt 61.2 kg
[~2020-02-08 14:19] MED LIST: ACETAMINOPHEN325 M1 ORAL; CAPTOPRIL50 MG PO; COLACE100 MG/10 ORAL; COREG25 MG ORAL; ELIQUIS2.5 MG PO; FAMOTIDINE20 MG ORAL; FERROUS SULFAT325 M2 ORAL; HUMALOG100 UNIT/3 SUBQ; LANTUS5 UNITS SUBQ; LOSARTAN POTAS100 MG ORAL; LYRICA50 MG ORAL; METOLAZONE5 MG PO; NEOMYCIN SULFA500 MG ORAL; NEURONTIN300 MG ORAL; NIFEDIPINE ER90 M3 ORAL; RENA-VITE TABL0.8 M1 PO; RENAGEL800 MG ORAL; SIMVASTATIN20 MG ORAL; TRAMADOL HCL50 MG ORAL
[2020-02-08 14:30] VITALS: BP 116/60
--- NOTE | 2020-02-08 14:30 | NUR ---
ED Nurse Note: Patient BIBA from [facility] for dark colored stool x 1 day. Patient denies n/v/d, recent trauma. Patient AxO x 4, no s/s of acute distress. Blood collected and sent to lab.
[2020-02-08] MEDS ORDERED: GABAPENTIN100 MG ORAL (14:36)
[2020-02-08] MEDS ORDERED: CALCIUM ACETAT667 M1 PO (14:36)
[2020-02-08] MEDS ORDERED: OMEPRAZOLE20 M2 ORAL (14:36)
[2020-02-08] MEDS ORDERED: REGLAN10 MG ORAL (14:36)
[2020-02-08] MEDS ORDERED: METOLAZONE5 MG PO (14:36)
[2020-02-08] MEDS ORDERED: LYRICA75 M1 ORAL (14:36)
[2020-02-08] MEDS ORDERED: HYDRALAZINE HCL50 MG ORAL (14:36)
[2020-02-08] MEDS ORDERED: NIFEDIPINE ER60 M2 ORAL (14:36)
[2020-02-08 16:09] LABS: BASOPHILS % (AUTO) 0.7 % (0.0-2.0); EOSINOPHILS % (AUTO) 0.3 % (0.0-3.0); HEMATOCRIT 30.3 % (42.0-52.0); HEMOGLOBIN 9.7 G/DL (14.2-18.0); LYMPHOCYTES % (AUTO) 7.6 % (20.0-45.0); MEAN CORPUSCULAR VOLUME 96 FL (80-99); MONOCYTES % (AUTO) 7.3 % (1.0-10.0); NEUTROPHILS % (AUTO) 84.2 % (45.0-75.0); PLATELET COUNT 208 K/UL (150-450); RED BLOOD COUNT 3.14 M/UL (4.70-6.10); RED CELL DISTRIBUTION WIDTH 14.8 % (11.6-14.8); WHITE BLOOD COUNT 14.2 K/UL (4.8-10.8)
[2020-02-08 16:15] VITALS: BP 125/64
[2020-02-08 16:16] LABS: INR 1.2 (0.9-1.1)
[2020-02-08 16:21] LABS: ANION GAP 9 mmol/L (5-15); BLOOD UREA NITROGEN 44 mg/dL (7-18); CALCIUM 9.6 MG/DL (8.5-10.1); CARBON DIOXIDE 33 MMOL/L (21-32); CHLORIDE 96 MMOL/L (98-107); CREATININE 3.7 MG/DL (0.55-1.30); POTASSIUM 2.9 MMOL/L (3.5-5.1); SODIUM 138 MMOL/L (136-145)
--- NOTE | 2020-02-08 16:30 | NUR ---
ED Nurse Note: Patient resting in bed, no s/s of acute distress. Breathing even and unlabored. Will continue to monitor.
--- NOTE | 2020-02-08 16:31 | Diagnostic Imaging Report ---
Indication: PAIN, dark stools indicating likely GI bleed Technique: Spiral acquisitions obtained through the abdomen and pelvis. No oral contrast utilized, per emergency room physician request No IV contrast utilized, per referring physician request.. Multiplanar reconstructions were generated. Total dose length product 265 mGycm. CTDIvol(s) 5 mGy. Dose reduction achieved using automated exposure control Comparison: 10/29/2018 Findings: Lack of enteric contrast limits assessment of the GI tract. There is marked wall thickening of the descending colon, sigmoid, and rectum. The appendix is normal. The proximal colon is upper limits of normal caliber, gas and stool-filled. There is a small to moderate amount of ascites fluid. There is congestion of the mesenteric fat. Small bowel loops are somewhat prominent in caliber, and a few may demonstrate slight wall thickening. The distal esophagus, stomach, duodenum are unremarkable. No free intraperitoneal gas. No bowel wall pneumatosis. The colon wall thickening is markedly increased from that reported previously. The lack of IV contrast limits assessment of the solid organs. The liver appears somewhat enlarged. No definite focal abnormality. It is normal in attenuation. The gallbladder is nondistended. The wall appears edematous. No radiopaque gallstones. No biliary ductal dilatation. The pancreas is atrophic. The spleen is grossly normal. The kidneys are grossly unremarkable. No renal or ureteral calculi, hydronephrosis, or hydroureter. Bladder is nondistended. Again demonstrated is mild bladder wall thickening, similar in extent to the previous study. Again demonstrated is left hip surgical hardware. There is diffuse edema of the subcutaneous fat. This is slightly less extensive than on the prior study. Again demonstrated is what appears to be a loculated thick rimmed right pleural effusion. Atelectatic or consolidated lung is demonstrated in the right lower lobe. Groundglass opacities throughout the aerated portions of both lungs appear very similar to the prior exam. There is trace left pleural fluid as well. The heart is enlarged. There are extensive arterial calcifications. Impression: Marked rectal, descending and sigmoid colon wall thickening, consistent with colitis. Nonspecific appearance as regards etiology Ascites, also previously reported Evidence of anasarca, with in addition to the above bilateral pleural effusions, edema subcutaneous fat, and congestion of the mesentery Mild hepatomegaly, also previously reported Right pleural effusion with a thick wall, appearing similar to the previous exam of October 2018. Likely reflects a loculated/organized pleural effusion. Considerable consolidation of much of the right lower lobe. This appears similar to the previous exam. Diffuse groundglass opacity throughout much of the visualized lungs, nonspecific but may reflect pulmonary edema Cardiomegaly Apparent gallbladder wall thickening/edema. Probably an artifact of under distention and manifestation of anasarca. Acute cholecystitis cannot completely excludable, however, and consideration should be given to further workup if there is high clinical suspicion. Apparent bladder wall thickening. Probably an artifact of under distention, unchanged from the prior exam. Cystitis also possible. Other findings as noted, including left hip surgical hardware, extensive arterial calcification The CT scanner at [facility] is accredited by the [employer] and the scans are performed using protocols designed to limit radiation exposure to as low as reasonably achievable to attain images of sufficient resolution adequate for diagnostic evaluation.
[2020-02-08 16:34] LABS: ALANINE AMINOTRANSFERASE 24 U/L (12-78); ALBUMIN 2.6 G/DL (3.4-5.0); ALBUMIN/GLOBULIN RATIO 0.6 (1.0-2.7); ALKALINE PHOSPHATASE 1155 U/L (46-116); ASPARTATE AMINO TRANSFERASE 23 U/L (15-37); BILIRUBIN,TOTAL 2.2 MG/DL (0.2-1.0); CREATINE KINASE 18 U/L (26-308)
--- NOTE | 2020-02-08 16:36 | Diagnostic Imaging Report ---
Indication: Chest pain Technique: One view of the chest Comparison: None Findings: The heart is enlarged. There is a right-sided pleural effusion. Opacity at the right lung base may reflect superimposed pleural fluid, parenchymal consolidation, or combination of both. There is also generalized mild interstitial edema. Impression: Cardiomegaly Right pleural effusion Right basilar opacity, likely infiltrates or edema, but could also be due to pleural fluid seen en face Generalized mild interstitial congestion
--- NOTE | 2020-02-08 17:31 | Emergency Room Report ---
History of Present Illness General Chief Complaint: Gastrointestinal Bleed Source: Patient, Medical Record, EMS Present Illness HPI Patient is sent in for dark tarry stools noticed yesterday Nursing facility denies any cough or shortness of breath patient does have dialysis Friday And was dialyzed yesterday Patient is from nursing facility and there have been positive covid-19 at this facility There was no reports of abdominal pain patient is poor historian and it does limit the history of present illness Allergies: Coded Allergies: No Known Allergies (Unverified , 10/28/18) COVID-19 Screening Contact w/high risk pt: No Recent Travel to affected area: No Experienced COVID-19 symptoms?: No Patient History Limited by: medical condition Past Medical History: see triage record Reviewed Nursing Documentation: PMH: Agreed; PSxH: Agreed Nursing Documentation-PMH Past Medical History: No History, Except For Hx Hypertension: Yes - anemiA, hyperlipidemia, encephalopathy, Hx Diabetes: Yes Hx Gastrointestinal Problems: Yes - GERD Hx Dialysis: Yes - HD m/w/f, AV shunt to left upper arm. Hx Cerebrovascular Accident: Yes Review of Systems All Other Systems: limited - Other than the ones mentioned in the history of present illness all others are reviewed however they do stay limited due to the patient's mental status Physical Exam Vital Signs Date Time Temp Pulse Resp B/P (MAP) Pulse Ox O2 Delivery O2 Flow Rate FiO2 02/08/20 14:21 98.2 67 17 116/60 (78) 96 Room Air Sp02 EP Interpretation: reviewed, normal General Appearance: no apparent distress Head: normocephalic, atraumatic Eyes: bilateral eye PERRL, bilateral eye EOMI ENT: hearing grossly normal, EOM grossly intact Neck: supple Respiratory: no retraction, no accessory muscle use, crackles - Both lower lobes Cardiovascular #1: regular rate, rhythm Gastrointestinal: non tender, soft Musculoskeletal: other - No obvious focal deficit Neurologic: responsive - To physical and verbal stimuli Skin: no rash, other - AV shunt left upper arm Lymphatic: no adenopathy Medical Decision Making Diagnostic Impression: Primary Impression: Gastrointestinal hemorrhage Additional Impression: Renal failure ER Course Patient is a fairly complex patient with multiple differential to consideration including but not limited to cardiac cardiopulmonary and vascular emergencies Other differential such as GI hemorrhage also entertained Patient's x-ray shows areas of effusion these are likely related to the patient' s renal failure However other differential such as pneumonia and covid-19 need to be entertained Patient has further testing performed and admitted for further inpatient care Labs Test 02/08/20 15:45 White Blood Count 14.2 K/UL (4.8-10.8) Red Blood Count 3.14 M/UL (4.70-6.10) Hemoglobin 9.7 G/DL (14.2-18.0) Hematocrit 30.3 % (42.0-52.0) Mean Corpuscular Volume 96 FL (80-99) Mean Corpuscular Hemoglobin 31.0 PG (27.0-31.0) Mean Corpuscular Hemoglobin Concent 32.1 G/DL (32.0-36.0) Red Cell Distribution Width 14.8 % (11.6-14.8) Platelet Count 208 K/UL (150-450) Mean Platelet Volume 7.7 FL (6.5-10.1) Neutrophils (%) (Auto) 84.2 % (45.0-75.0) Lymphocytes (%) (Auto) 7.6 % (20.0-45.0) Monocytes (%) (Auto) 7.3 % (1.0-10.0) Eosinophils (%) (Auto) 0.3 % (0.0-3.0) Basophils (%) (Auto) 0.7 % (0.0-2.0) Prothrombin Time 12.5 SEC (9.30-11.50) Prothromb Time International Ratio 1.2 (0.9-1.1) Activated Partial Thromboplast Time 36 SEC (23-33) Sodium Level 138 MMOL/L (136-145) Potassium Level 2.9 MMOL/L (3.5-5.1) Chloride Level 96 MMOL/L (98-107) Carbon Dioxide Level 33 MMOL/L (21-32) Anion Gap 9 mmol/L (5-15) Blood Urea Nitrogen 44 mg/dL (7-18) Creatinine 3.7 MG/DL (0.55-1.30) Estimat Glomerular Filtration Rate 17.2 mL/min (>60) Glucose Level 149 MG/DL (74-106) Calcium Level 9.6 MG/DL (8.5-10.1) Total Bilirubin 2.2 MG/DL (0.2-1.0) Direct Bilirubin 2.0 MG/DL (0.0-0.3) Aspartate Amino Transf (AST/SGOT) 23 U/L (15-37) Alanine Aminotransferase (ALT/SGPT) 24 U/L (12-78) Alkaline Phosphatase 1155 U/L (46-116) Total Creatine Kinase 18 U/L (26-308) Troponin I 0.000 ng/mL (0.000-0.056) Pro-B-Type Natriuretic Peptide > 04730 pg/mL (0-125) Total Protein 6.9 G/DL (6.4-8.2) Albumin 2.6 G/DL (3.4-5.0) Globulin 4.3 g/dL Albumin/Globulin Ratio 0.6 (1.0-2.7) Lipase 41 U/L (73-393) Rhythm Strip Diag. Results EP Interpretation: yes Rate: 78 Rhythm: NSR, no PVC's, no ectopy Chest X-Ray Diagnostic Results Chest X-Ray Diagnostic Results : Chest X-Ray Ordered: Yes # of Views/Limited/Complete: 1 View Indication: Chest Pain EP Interpretation: Yes Interpretation: no pneumothorax, other - Right-sided effusion, consider infiltrate versus other, borderline cardiomegaly, left lower lobe atelectasis, no acute bony abnormality Impression: Other - Bilateral effusions right greater than left Electronically Signed by: Kash Carpio, DO CT/MRI/US Diagnostic Results CT/MRI/US Diagnostic Results : Impression CT abdomen pelvisImpression: Marked rectal, descending and sigmoid colon wall thickening, consistent with colitis. Nonspecific appearance as regards etiology Ascites, also previously reported Evidence of anasarca, with in addition to the above bilateral pleural effusions, edema subcutaneous fat, and congestion of the mesentery Mild hepatomegaly, also previously reported Right pleural effusion with a thick wall, appearing similar to the previous exam of October 2018. Likely reflects a loculated/organized pleural effusion. Considerable consolidation of much of the right lower lobe. This appears similar to the previous exam. Diffuse groundglass opacity throughout much of the visualized lungs, nonspecific but may reflect pulmonary edema Cardiomegaly Apparent gallbladder wall thickening/edema. Probably an artifact of under distention and manifestation of anasarca. Acute cholecystitis cannot completely excludable, however, and consideration should be given to further workup if there is high clinical suspicion. Apparent bladder wall thickening. Probably an artifact of under distention, unchanged from the prior exam. Cystitis also possible. Other findings as noted, including left hip surgical hardware, extensive arterial calcification Last Vital Signs Date Time Temp Pulse Resp B/P (MAP) Pulse Ox O2 Delivery O2 Flow Rate FiO2 02/08/20 14:21 98.2 67 17 116/60 (78) 96 Room Air Status: improved Disposition: ADMITTED INPATIENT Condition: Serious Referrals: Tay Ruvalcaba MD (PCP) Kash Carpio DO Feb 08, 2020 17:31
[2020-02-08 18:10] VITALS: BP 129/69
--- NOTE | 2020-02-08 19:00 | NUR ---
HAND-OFF: Report given to Marianela STONE.
--- NOTE | 2020-02-08 19:01 | NUR ---
ED Nurse Note: Report received from CHASE Wynne. PT seen in bed resting. no acute distress is noted. will continue to irasema.
[2020-02-08 19:25] VITALS: BP 118/66
--- NOTE | 2020-02-08 20:48 | NUR ---
ED Nurse Note: pt resting with eyes closed. appears to be sleeping. no acute distress is noted at this time. will continue to monitor.
--- NOTE | 2020-02-08 21:03 | NUR ---
ED Nurse Note: paged dr sorensen for admission order. awaiting for call back at this time.
--- NOTE | 2020-02-08 21:15 | NUR ---
ED Nurse Note: Received call back from Dr sorensen with admission order. order is noted and carried out.
--- NOTE | 2020-02-08 21:35 | NUR ---
ED Nurse Note: Report given to CHASE ward. Endorsed plan of care.
--- NOTE | 2020-02-08 21:42 | NUR ---
ED Nurse Note: Patient resting comfortably with no s/s of acute distress. Patient does report pain in his anal area 5/10, will consult orders.
--- NOTE | 2020-02-08 21:45 | NUR ---
ED Nurse Note: child monitor placed in patient's room due to medical history. Will continue to monitor patient's progress and obtain cardiac reading every hour.
[2020-02-08] MEDS: HydrALAZINE 50mg tab ORAL SCH (22:10)
[2020-02-08 22:13] VITALS: BP 124/51
--- NOTE | 2020-02-08 22:47 | NUR ---
ED Nurse Note: Patient given call button and instructed on how to use.
[2020-02-08 23:15] VITALS: BP 135/51
--- NOTE | 2020-02-08 23:15 | NUR ---
ED Nurse Note: Patient is sleeping soundly with no s/s of acute distress. Will continue to monitor progress. Vital signs stable and documented, noted bradycardia.
[2020-02-09] VITALS (7 sets, daily range): BP systolic 104–144; BP diastolic 52–63
--- NOTE | 2020-02-09 00:56 | NUR ---
ED Nurse Note: Patient is sleeping but easily arousable, A&Ox4 and has no complaints of pain. Will continue to monitor progress. vital signs stable and documented.
--- NOTE | 2020-02-09 03:01 | NUR ---
ED Nurse Note: Report called into Aron STONE.
--- NOTE | 2020-02-09 03:11 | NUR ---
ED Nurse Note: Patient transported to floor by maintenance mechanic technician and RN without incident. $45.00 verified upon arrival.
--- NOTE | 2020-02-09 03:15 | NUR ---
NURSE NOTES: Pt. received from CHASE Davison. Pt. AAOx3, on room air, breathing is even and unlabored, no complaints of pain, VS stable. No IV access at this time, d/c'd per patient, will reestablish. AV shunt DENISE, positive for bruits and thrills. Pt. is r/o covid, in contact and droplet isolation. Wound pictures taken and verified with charge nurse. Belongings checked and verified. Pt. oriented to room and unit, call light in hand and instructed how to use, pt. acknowledge understanding. Bed is low and locked, side rails x3 up, bed alarm active and call light in reach. Will continue to monitor.
--- NOTE | 2020-02-09 04:00 | NUR ---
NURSE NOTES: IV access right hand 22g, saline locked.
[2020-02-09] MEDS: HydrALAZINE 50mg tab ORAL SCH ×3 (05:51→21:55)
[2020-02-09] MEDS: NovoLOG Insulin Flexpen SUBQ SCH ×4 (06:10→21:36)
--- NOTE | 2020-02-09 07:40 | NUR ---
NURSE NOTES: Report received from Aron STONE. Patient seen on rounds, AxOx4, not in distress, no complaints of pain. Tolerating room air. PIV on right hand unable to flush. Pain noted on insertion site. Reinserted on right forearm G22, patent with good backflow noted. Patient is anuric d/t dx of ESRD. No bleeding noted from rectum or stool. Bed low and locked, siderails up x2, call light within reach, instructed to call nurse for assistance. Will continue to monitor.
--- NOTE | 2020-02-09 07:45 | NUR ---
HAND-OFF: Report given to CHASE Horton.
--- NOTE | 2020-02-09 08:30 | NUR ---
NURSE NOTES: Stool and urine collected and sent to lab for occult blood, urinalysis and random urine sodium as ordered.
--- NOTE | 2020-02-09 08:37 | Consultation ---
Consult Note Consult Note 8 am- Was asked to evaluate the patient at the request of Dr. Ruvalcaba for renal failure and the dialysis management Patient known to me from his last year admission Data reviewed Labs and urine studies ordered Note to follow 11 Am- According to the emergency room note: Patient who is a 54-year-old male came into our emergency room for dark tarry stools Patient denies any cough shortness of breath His dialysis days are Friday and Friday last was dialyzed on February 06 Allergies not known The group home facility that the patient is coming from , have had patients there who were positive for COVID-19 COVID-19 Screening Contact w/high risk pt: No Recent Travel to affected area: No Experienced COVID-19 symptoms?: No Past Medical History: No History, Except For Hx Hypertension: Yes - anemiA, hyperlipidemia, encephalopathy, Hx Diabetes: Yes Hx Gastrointestinal Problems: Yes - GERD Hx Dialysis: Yes - HD m/w/f, AV shunt to left upper arm. Hx Cerebrovascular Accident: Yes Patient interviewed And examined New laboratory data reviewed Discussed with RN . Assessment/Plan 1) ESRD on dialysis, will hold dialysis today and reevaluate for possible dialysis tomorrow February 09 (2) GI bleed, for which the patient was sent to emergency room (3) Abdominal distension (4) Anemia (5) Diabetes mellitus (6) history of bradyarrhythmia (7) hypertensive kidney disease (8) history of CVA Plan: Gastrointestinal evaluation Hold Eliquis due to GI bleed Hold phosphate binders due to low phosphorus level IV Protonix Potassium supplement 1 time Adjust blood pressure medication with proper parameters Hemodialysis as needed 2D echocardiogram Monitor hemoglobin hematocrit Per orders Eliazar Fong MD Feb 09, 2020 08:37
[2020-02-09] MEDS ORDERED: Losartan 50mg tab ORAL SCH (09:00)
[2020-02-09] MEDS ORDERED: Eliquis 2.5mg tablet ORAL SCH (09:00)
[2020-02-09] MEDS ORDERED: Calcium Acetate 667mg Tab ORAL SCH (09:00)
--- NOTE | 2020-02-09 09:00 | History and Physical Report ---
HISTORY OF PRESENT ILLNESS: This is an elderly male who is currently 54 years old male who was at [facility], came to the emergency room for having possible rectal bleeding, diarrhea, abdominal pain, nausea, and vomiting. The patient also was running low-grade fever. The patient is currently alert and oriented x3, generalized weakness, mostly bedbound. PAST MEDICAL HISTORY: Significant for end-stage renal disease, hypertension, borderline diabetes, generalized weakness, history of CVA, and depression. MEDICATIONS: See the list. ALLERGIES: NKA. FAMILY HISTORY: Noncontributory. SOCIAL HISTORY: Lives at [facility], mostly wheelchair bound. REVIEW OF SYSTEMS: Generalized weakness, tired, fatigue, low-grade fever, intermittently abdominal pain, cramps and diarrhea since yesterday. PHYSICAL EXAMINATION: VITAL SIGNS: Blood pressure is 160/90, pulse 84, respirations 18, no fever. Skin is slightly dry. HEENT: Eyes are open. NECK: Supple. CHEST: Bilateral decreased breath sounds. CARDIOVASCULAR: Irregular rhythm. No gallop. No murmur. ABDOMEN: Soft. Positive bowel sounds. Mild tenderness. No organomegaly. EXTREMITIES: CCE. NEUROLOGICAL: Generalized weakness. ASSESSMENT: 1. Diarrhea. 2. Rectal bleeding, rule out GI bleed. 3. End-stage renal disease. 4. Hypertension. 5. Depression. 6. CVA. PLAN: We will admit on medical floor, rule out COVID. We will continue IV fluid, consider Nephrology consult and fluids and discussed with the ER physician. Alvaro Ruvalcaba M.D. DR: Pato JOB#: [id number] CC:
[2020-02-09] MEDS: Azithromycin 500 MG in NS 275 ML IV SCH (09:35)
[2020-02-09 09:56] LABS: HEMATOCRIT 28.3 % (42.0-52.0); HEMOGLOBIN 9.4 G/DL (14.2-18.0); MEAN CORPUSCULAR VOLUME 92 FL (80-99); PLATELET COUNT 223 K/UL (150-450); RED BLOOD COUNT 3.08 M/UL (4.70-6.10); RED CELL DISTRIBUTION WIDTH 13.9 % (11.6-14.8)
[2020-02-09 10:12] LABS: ANION GAP 10 mmol/L (5-15); BLOOD UREA NITROGEN 49 mg/dL (7-18); CALCIUM 8.6 MG/DL (8.5-10.1); CARBON DIOXIDE 30 MMOL/L (21-32); CHLORIDE 99 MMOL/L (98-107); CREATININE 4.3 MG/DL (0.55-1.30); POTASSIUM 2.9 MMOL/L (3.5-5.1); SODIUM 138 MMOL/L (136-145)
[2020-02-09 10:28] LABS: ALANINE AMINOTRANSFERASE 23 U/L (12-78); ALBUMIN 2.3 G/DL (3.4-5.0); ALBUMIN/GLOBULIN RATIO 0.5 (1.0-2.7); ALKALINE PHOSPHATASE 1030 U/L (46-116); ASPARTATE AMINO TRANSFERASE 18 U/L (15-37); BILIRUBIN,TOTAL 1.6 MG/DL (0.2-1.0); GAMMA GLUTAMYL TRANSPEPTIDASE 197 U/L (5-85)
[2020-02-09 10:53] LABS: BILIRUBIN,DIRECT 1.3 MG/DL (0.0-0.3); FERRITIN 1133 NG/ML (8-388)
[2020-02-09 11:10] LABS: APPEARANCE,URINE TURBID; BILIRUBIN, URINE NEGATIVE (NEGATIVE); COLOR,URINE BROWN; GLUCOSE, URINE (UA) NEGATIVE (NEGATIVE); KETONES,URINE NEGATIVE (NEGATIVE); LEUKOCYTE ESTERASE ,URINE 3+ (NEGATIVE); NITRITE,URINE NEGATIVE (NEGATIVE); PH,URINE 8 (4.5-8.0); PROTEIN,URINE 4+ (NEGATIVE); UROBILINOGEN,URINE NORMAL MG/DL (0.0-1.0)
[2020-02-09] MEDS ORDERED: Sodium Chloride for KCL Premix x 2hrs IV SCH (11:15)
[2020-02-09] MEDS ORDERED: Metoclopramide 10mg/2ml Inj IVP PRN (11:15)
[2020-02-09 11:47] LABS: CHOLESTEROL 118 MG/DL (< 200); HDL CHOLESTEROL 11 MG/DL (40-60); TRIGLYCERIDES 123 MG/DL (30-150)
[2020-02-09 12:11] LABS: % IRON SATURATION 28 % (15-50); IRON 27 ug/dL (50-175); TOTAL IRON BINDING CAPACITY 95 ug/dL (250-450)
[2020-02-09] MEDS: Lyrica 50mg cap ORAL SCH ×2 (13:53→17:48)
[2020-02-09] MEDS: Pantoprazole Inj IVP SCH ×2 (13:56→21:36)
--- NOTE | 2020-02-09 14:20 | NUR ---
NURSE NOTES:WOUND CARE NOTES:Pt presented on admission with historical scar from pressure injury Sacrum. Scattered areas of hyperpigmentation noted . Non-blanching erythema without induration noted to lumbar-sacral area. Darker skin tone without erythema, induration or fluctuance noted to R and L gluteal clefts. Tx.Plan: Apply Moisture Barrier Paste to Lumbar Sacral area. Cover with Optifoam drsg. Change every 3 days and prn. Apply Moisture Barrier Paste to R and L buttocks and perineum with each incontinence care. Apply Cavilon Skin Barrier to both heels. Cover each heel with Optifoam drsg. Change every 7 days and prn. Reposition at least every 2hours or as tolerated. Off-load heels with pillow.
--- NOTE | 2020-02-09 15:46 | Consultation ---
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 Patient states he feels he is been bleeding from his rectum for the past 2 days. No nausea vomiting fever chills. Feels he still bleeding from his rectum. Anemia noted as well as leukocytosis. Patient admitted further care management. CT identified near pancolitis. Surgery called to evaluate and assist with care. Patient seen, patient evaluated, chart reviewed. Patient states he has some crampy abdominal pain 6 out of 10 intermittent and it hurts during bowel movements. States he is having loose bowel movements with lots of mucus and he believes blood. Allergies: Coded Allergies: No Known Allergies (Unverified , 10/28/18) COVID-19 Screening Contact w/high risk pt: No Recent Travel to affected area: No Experienced COVID-19 symptoms?: No Medication History Scheduled Apixaban (Eliquis), 2.5 MG PO BID, (Reported) Calcium Acetate (Calcium Acetate), 667 MG PO TID, (Reported) Captopril (Captopril), 50 MG PO BID, (Reported) Carvedilol (Coreg), 25 MG ORAL EVERY 12 HOURS, (Reported) Docusate Sodium (Docusate Sodium), 100 MG ORAL DAILY, (Reported) Famotidine* (Pepcid 20mg tablet*), 20 MG ORAL DAILY, (Reported) Ferrous Sulfate (Ferrous Sulfate), 325 MG ORAL DAILY, (Reported) Folic Acid/Vitamin B Comp W-C (Gloria-Jerome Tablet), 0.8 MG PO QPM, (Reported) Gabapentin (Neurontin), 300 MG ORAL Q8HR, (Reported) Gabapentin* (Gabapentin*), 100 MG ORAL THREE TIMES A DAY, (Reported) Hydralazine Hcl* (Hydralazine Hcl*), 50 MG ORAL EVERY 8 HOURS, (Reported) Insulin Glargine (Lantus), 18 SUBQ BEDTIME, (Reported) Losartan Potassium (Losartan Potassium), 100 MG ORAL DAILY, (Reported) Metoclopramide Hcl* (Reglan*), 10 MG ORAL BID, (Reported) Metolazone (Metolazone), 5 MG PO DAILY, (Reported) Metolazone (Metolazone), 5 MG PO DAILY, (Reported) Neomycin Sulfate (Neomycin Sulfate), 250 MG ORAL THREE TIMES A DAY, (Reported) Nifedipine Er* (Nifedipine Er*), 90 MG ORAL DAILY, (Reported) Nifedipine* (Nifedipine Er*), 90 MG ORAL DAILY, (Reported) Omeprazole (Omeprazole), 20 MG ORAL DAILY, (Reported) Pregabalin (Lyrica), 50 MG ORAL THREE TIMES A DAY, (Reported) Pregabalin* (Lyrica*), 50 MG ORAL BID, (Reported) Sevelamer Hcl (Renagel), 1,600 MG ORAL THREE TIMES A DAY, (Reported) Simvastatin (Zocor), 20 MG ORAL BEDTIME, (Reported) Scheduled PRN Acetaminophen* (Acetaminophen 325MG Tablet*), 650 MG ORAL Q4H PRN for Mild Pain (Pain Scale 1-3), (Reported) Tramadol Hcl* (Ultram*), 50 MG ORAL Q8HR PRN for Severe Pain (Pain Scale 7-10), (Reported) Miscellaneous Medications Insulin Lispro (Humalog), 0 SUBQ, (Reported) Patient History History Provided By: Patient, Medical Record, PMD Healthcare decision maker Resuscitation status Full Code Advanced Directive on File Past Medical/Surgical History Past Medical/Surgical History: (1) Abdominal distension (2) Anemia (3) Diabetes mellitus (4) Bradyarrhythmia (5) Gastrointestinal hemorrhage (6) Renal failure Review of Systems Review of Symptoms General ROS: no weight loss or fever Psychological ROS: no depression or mood changes, no memory loss Ophthalmic ROS: no visual changes or eye irritation ENT ROS: no nasal congestion, hearing loss, dizziness Allergy and Immunology ROS: no allergic symptoms or urticaria Hematological and Lymphatic ROS: no swollen glands, unusual bleeding or bruising Endocrine ROS: no polyuria, polydipsia, weight changes, temperature intolerance Respiratory ROS: no cough, shortness of breath, or wheezing Cardiovascular ROS: no chest pain or dyspnea on exertion Gastrointestinal ROS: abdominal pain, bright red blood in stool. Musculoskeletal ROS: no myalgias or arthralgias Neurological ROS: no TIA or stroke symptoms Dermatological ROS: no new or changing skin lesions, rashes or pruritis Physical Exam Physical Exam General appearance: alert, cooperative, no distress, appears stated age Head: Normocephalic, without obvious abnormality, atraumatic Eyes: conjunctivae/corneas clear. PERRL, EOM's intact. Fundi benign Throat: Lips, mucosa, and tongue normal. Teeth and gums normal Neck: supple, symmetrical, trachea midline, no adenopathy, thyroid: not enlarged, symmetric, no tenderness/mass/nodules, no carotid bruit and no JVD Lungs: clear to auscultation bilaterally Heart: regular rate and rhythm, S1, S2 normal, no murmur, click, rub or gallop Abdomen: soft, non-tender. Bowel sounds increased No masses, no organomegaly Extremities: extremities normal, atraumatic, no cyanosis or edema Pulses: 2+ and symmetric Skin: Skin color, texture, turgor normal. No rashes or lesions Neurologic: Grossly normal Rectal exam : Rectal exam identified loose mucus in the rectum no gross blood identified. Patient is incontinent with loose stool. No large hemorrhoids Last 24 Hour Vital Signs Date Time Temp Pulse Resp B/P (MAP) Pulse Ox O2 Delivery O2 Flow Rate FiO2 02/09/20 13:54 135/62 02/09/20 12:00 98.4 60 19 135/62 (86) 97 02/09/20 09:37 60 137/60 02/09/20 09:36 137/60 02/09/20 09:00 Room Air 02/09/20 08:00 98.2 60 19 137/60 (85) 96 02/09/20 05:51 141/65 02/09/20 05:02 Room Air 02/09/20 04:00 98.2 55 19 144/63 (90) 91 02/09/20 03:11 98.0 54 20 127/54 98 Room Air 02/09/20 02:40 98.0 54 20 127/54 98 Room Air 02/09/20 00:56 98.0 53 17 126/52 98 Room Air 02/08/20 23:15 98.0 53 16 135/51 97 Room Air 02/08/20 22:13 98.0 54 17 124/51 97 Room Air 02/08/20 22:10 124/51 02/08/20 19:25 98.0 70 18 118/66 97 Room Air 02/08/20 18:10 98.4 61 17 129/69 94 Room Air 02/08/20 16:15 98.1 65 18 125/64 95 Room Air Intake and Output 02/08/20 02/09/20 19:00 07:00 Intake Total 0 ml 200 ml Balance 0 ml 200 ml Intake Oral 0 ml 200 ml # Bowel Movements 2 Laboratory Tests Test 02/08/20 15:45 02/09/20 09:35 02/09/20 10:40 White Blood Count 14.2 K/UL (4.8-10.8) H 11.0 K/UL (4.8-10.8) H Red Blood Count 3.14 M/UL (4.70-6.10) L 3.08 M/UL (4.70-6.10) L Hemoglobin 9.7 G/DL (14.2-18.0) L 9.4 G/DL (14.2-18.0) L Hematocrit 30.3 % (42.0-52.0) L 28.3 % (42.0-52.0) L Mean Corpuscular Volume 96 FL (80-99) 92 FL (80-99) Mean Corpuscular Hemoglobin 31.0 PG (27.0-31.0) 30.4 PG (27.0-31.0) Mean Corpuscular Hemoglobin Concent 32.1 G/DL (32.0-36.0) 33.1 G/DL (32.0-36.0) Red Cell Distribution Width 14.8 % (11.6-14.8) 13.9 % (11.6-14.8) Platelet Count 208 K/UL (150-450) 223 K/UL (150-450) Mean Platelet Volume 7.7 FL (6.5-10.1) 6.4 FL (6.5-10.1) L Neutrophils (%) (Auto) 84.2 % (45.0-75.0) H % (45.0-75.0) Lymphocytes (%) (Auto) 7.6 % (20.0-45.0) L % (20.0-45.0) Monocytes (%) (Auto) 7.3 % (1.0-10.0) % (1.0-10.0) Eosinophils (%) (Auto) 0.3 % (0.0-3.0) % (0.0-3.0) Basophils (%) (Auto) 0.7 % (0.0-2.0) % (0.0-2.0) Prothrombin Time 12.5 SEC (9.30-11.50) H Prothromb Time International Ratio 1.2 (0.9-1.1) H Activated Partial Thromboplast Time 36 SEC (23-33) H Sodium Level 138 MMOL/L (136-145) 138 MMOL/L (136-145) Potassium Level 2.9 MMOL/L (3.5-5.1) L 2.9 MMOL/L (3.5-5.1) L Chloride Level 96 MMOL/L (98-107) L 99 MMOL/L (98-107) Carbon Dioxide Level 33 MMOL/L (21-32) H 30 MMOL/L (21-32) Anion Gap 9 mmol/L (5-15) 10 mmol/L (5-15) Blood Urea Nitrogen 44 mg/dL (7-18) H 49 mg/dL (7-18) H Creatinine 3.7 MG/DL (0.55-1.30) H 4.3 MG/DL (0.55-1.30) H Estimat Glomerular Filtration Rate 17.2 mL/min (>60) 14.5 mL/min (>60) Glucose Level 149 MG/DL (74-106) H 141 MG/DL (74-106) H Calcium Level 9.6 MG/DL (8.5-10.1) 8.6 MG/DL (8.5-10.1) Total Bilirubin 2.2 MG/DL (0.2-1.0) H 1.6 MG/DL (0.2-1.0) H Direct Bilirubin 2.0 MG/DL (0.0-0.3) H 1.3 MG/DL (0.0-0.3) H Aspartate Amino Transf (AST/SGOT) 23 U/L (15-37) 18 U/L (15-37) Alanine Aminotransferase (ALT/SGPT) 24 U/L (12-78) 23 U/L (12-78) Alkaline Phosphatase 1155 U/L (46-116) H 1030 U/L (46-116) H Total Creatine Kinase 18 U/L (26-308) L Troponin I 0.000 ng/mL (0.000-0.056) Pro-B-Type Natriuretic Peptide > 50776 pg/mL (0-125) H > 39534 pg/mL (0-125) H Total Protein 6.9 G/DL (6.4-8.2) 6.7 G/DL (6.4-8.2) Albumin 2.6 G/DL (3.4-5.0) L 2.3 G/DL (3.4-5.0) L Globulin 4.3 g/dL 4.4 g/dL Albumin/Globulin Ratio 0.6 (1.0-2.7) L 0.5 (1.0-2.7) L Lipase 41 U/L (73-393) L Differential Total Cells Counted 100 Neutrophils % (Manual) 89 % (45-75) H Lymphocytes % (Manual) 8 % (20-45) L Monocytes % (Manual) 1 % (1-10) Eosinophils % (Manual) 2 % (0-3) Basophils % (Manual) 0 % (0-2) Band Neutrophils 0 % (0-8) Platelet Estimate Adequate Platelet Morphology Normal Hypochromasia 1+ Anisocytosis 1+ Hemoglobin A1c 5.2 % (4.3-6.0) Uric Acid 4.3 MG/DL (2.6-7.2) Phosphorus Level 2.0 MG/DL (2.5-4.9) L Magnesium Level 2.4 MG/DL (1.8-2.4) Iron Level 27 ug/dL (50-175) L Total Iron Binding Capacity 95 ug/dL (250-450) L Percent Iron Saturation 28 % (15-50) Unsaturated Iron Binding 68 ug/dL (112-346) L Ferritin 1133 NG/ML (8-388) H Gamma Glutamyl Transpeptidase 197 U/L (5-85) H C-Reactive Protein, Quantitative 16.3 mg/dL (0.00-0.90) H Triglycerides Level 123 MG/DL (30-150) Cholesterol Level 118 MG/DL (< 200) LDL Cholesterol 52 mg/dL (<100) HDL Cholesterol 11 MG/DL (40-60) L Cholesterol/HDL Ratio 10.7 (3.3-4.4) H Vitamin B12 Level > 2000 PG/ML (193-986) H Folate 60.4 NG/ML (8.6-58.9) H Urine Color Brown Urine Appearance Turbid Urine pH 8 (4.5-8.0) Urine Specific [place] 1.015 (1.005-1.035) Urine Protein 4+ (NEGATIVE) H Urine Glucose (UA) Negative (NEGATIVE) Urine Ketones Negative (NEGATIVE) Urine Blood 5+ (NEGATIVE) H Urine Nitrite Negative (NEGATIVE) Urine Bilirubin Negative (NEGATIVE) Urine Urobilinogen Normal MG/DL (0.0-1.0) Urine Leukocyte Esterase 3+ (NEGATIVE) H Urine RBC 20-30 /HPF (0 - 0) H Urine WBC Tntc /HPF (0 - 0) H Urine Squamous Epithelial Cells Occasional /LPF Urine Bacteria Few /HPF (NONE) Height (Feet): 5 Height (Inches): 2.00 Weight (Pounds): 134 Medications Current Medications Medications (Trade) Dose Ordered Sig/Jennifer Route PRN Reason Start Time Stop Time Status Last Admin Dose Admin Acetaminophen (Tylenol) 650 mg Q4H PRN ORAL Mild Pain (Pain Scale 1-3) 02/08/20 21:15 03/09/20 21:14 Azithromycin 500 mg/Sodium Chloride 275 ml @ 275 mls/hr DAILY IV 02/09/20 09:00 02/14/20 08:59 02/09/20 09:35 Dextrose (Dextrose 50%) 25 ml Q30M PRN IV Hypoglycemia 02/08/20 21:15 05/08/20 21:14 Dextrose (Dextrose 50%) 50 ml Q30M PRN IV Hypoglycemia 02/08/20 21:15 05/08/20 21:14 Gabapentin (Neurontin) 100 mg THREE TIMES A DAY ORAL 02/09/20 10:00 03/10/20 09:59 02/09/20 13:53 Hydralazine HCl (Apresoline) 25 mg Q4H PRN ORAL bp over 160 syst 02/09/20 11:30 05/09/20 11:29 Hydralazine HCl (Apresoline) 50 mg EVERY 8 HOURS ORAL 02/09/20 14:00 05/08/20 21:59 02/09/20 13:54 Insulin Aspart (NovoLOG) BEFORE MEALS AND HS SUBQ 02/09/20 06:30 05/09/20 06:29 Losartan Potassium (Cozaar) 50 mg DAILY ORAL 02/10/20 09:00 03/10/20 08:59 Metoclopramide HCl (Reglan) 10 mg Q6H PRN IVP Nausea & Vomiting 02/09/20 11:15 03/10/20 11:14 Nifedipine (Procardia XL) 30 mg DAILY ORAL 02/10/20 09:00 03/10/20 08:59 Pantoprazole (Protonix) 40 mg EVERY 12 HOURS IVP 02/09/20 11:15 03/10/20 11:14 02/09/20 13:56 Pregabalin (Lyrica) 50 mg BID ORAL 02/09/20 10:00 03/10/20 09:59 02/09/20 13:53 Assessment/Plan Problem List: (1) Abdominal distension Assessment & Plan: he appendix is normal. The proximal colon is upper limits of normal caliber, gas and stool-filled. There is a small to moderate amount of ascites fluid. There is congestion of the mesenteric fat. Small bowel loops are somewhat prominent in caliber, and a few may demonstrate slight wall thickening. The distal esophagus, stomach, duodenum are unremarkable. No free intraperitoneal gas. No bowel wall pneumatosis. The colon wall thickening is markedly increased from that reported previously. The lack of IV contrast limits assessment of the solid organs. The liver appears somewhat enlarged. No definite focal abnormality. It is normal in attenuation. The gallbladder is nondistended. The wall appears edematous. No radiopaque gallstones. No biliary ductal dilatation. The pancreas is atrophic. The spleen is grossly normal. The kidneys are grossly unremarkable. No renal or ureteral calculi, hydronephrosis, or hydroureter. Bladder is nondistended. Again demonstrated is mild bladder wall thickening, similar in extent to the previous study. Again demonstrated is left hip surgical hardware. There is diffuse edema of the subcutaneous fat. This is slightly less extensive than on the prior study. Again demonstrated is what appears to be a loculated thick rimmed right pleural effusion. Atelectatic or consolidated lung is demonstrated in the right lower lobe. Groundglass opacities throughout the aerated portions of both lungs appear very similar to the prior exam. There is trace left pleural fluid as well. The heart is enlarged. There are extensive arterial calcifications. Impression: Marked rectal, descending and sigmoid colon wall thickening, consistent with colitis. Nonspecific appearance as regards etiology Ascites, also previously reported Evidence of anasarca, with in addition to the above bilateral pleural effusions, edema subcutaneous fat, and congestion of the mesentery Mild hepatomegaly, also previously reported Right pleural effusion with a thick wall, appearing similar to the previous exam of October 2018. Likely reflects a loculated/organized pleural effusion. Considerable consolidation of much of the right lower lobe. This appears similar to the previous exam. Diffuse groundglass opacity throughout much of the visualized lungs, nonspecific but may reflect pulmonary edema Cardiomegaly Apparent gallbladder wall thickening/edema. Probably an artifact of under distention and manifestation of anasarca. Acute cholecystitis cannot completely excludable, however, and consideration should be given to further workup if there is high clinical suspicion. Apparent bladder wall thickening. Probably an artifact of under distention, unchanged from the prior exam. Cystitis also possible. Other findings as noted, including left hip surgical hardware, extensive arterial calcification ICD Codes: R14.0 - Abdominal distension (gaseous) SNOMED: 00300838 (2) Gastrointestinal hemorrhage Assessment & Plan: Patient with possible GI bleed he is noted to have tarry stools. Mucous stools noticed on evaluation loose. No active bleeding identified. Hemoglobin is been stable. CT reviewed patient does have a near pancolitis. No acute surgical intervention at this time. Will monitor with serial abdominal exams Consider GI consultation for procedure/colonoscopy Occult blood stool Trend labs We will follow with examination IV antibiotics as per PCP or ID Thank you for let me participate patient's care ICD Codes: K92.2 - Gastrointestinal hemorrhage, unspecified SNOMED: 57991509 Sukhjinder Tolbert Feb 09, 2020 15:46
--- NOTE | 2020-02-09 19:29 | NUR ---
HAND-OFF: Report given to Payal STONE.
--- NOTE | 2020-02-09 19:30 | NUR ---
NURSE NOTES: Patient is awake and alert x4. No signs of distress or SOB. Bed locked and in lowest position. Call light in reach. Will continue to monitor the patient.
--- NOTE | 2020-02-09 23:00 | NUR ---
HAND-OFF: Report given to CHASE Benitez.
[2020-02-10] VITALS (7 sets, daily range): BP systolic 120–145; BP diastolic 54–78
[2020-02-10] MEDS: HydrALAZINE 50mg tab ORAL SCH ×3 (05:28→22:00)
[2020-02-10] MEDS: NovoLOG Insulin Flexpen SUBQ SCH ×4 (05:29→21:00)
--- NOTE | 2020-02-10 07:00 | NUR ---
HAND-OFF: Report given to CHASE Sherman.
--- NOTE | 2020-02-10 07:00 | Progress Note ---
DATE: 02/09/2020 SUBJECTIVE: This is a young 48-year-old male currently in bed having a little nausea and vomiting. The patient also was found to have hypokalemia. PHYSICAL EXAMINATION: VITAL SIGNS: Blood pressure is 160/90, pulse 74, respirations 18, no fever. HEENT: Eyes are open. NECK: Supple. CHEST: Bilaterally decreased breath sounds. CARDIOVASCULAR: Regular rhythm. No gallop. No murmur. ABDOMEN: Soft. Positive bowel sounds and nontender. EXTREMITIES: CCE. NEUROLOGICAL: Generalized weakness. ASSESSMENT: 1. Sepsis. 2. Rule out COVID. 3. Hypokalemia. 4. End-stage renal disease. 5. Gastrointestinal bleed. PLAN: We will D/C his anticoagulation. Monitor H and H, possible consider GI consult and Nephrology. Discussed with Dr. Fong, who is for Nephrology consult. Alvaro Ruvalcaba M.D. DR: Pato JOB#: [id number] CC:
--- NOTE | 2020-02-10 07:12 | NUR ---
NURSE NOTES: Report received from Eli STONE. Patient seen on rounds, AxOx4, not in distress, no complaints of pain. Tolerating room air. PIV on right forearm patent and intact. Patient is oliguric d/t dx of ESRD. No bleeding noted from rectum or stool. Bed low and locked, siderails up x2, call light within reach, instructed to call nurse for assistance. Will continue to monitor.
[2020-02-10] MEDS: Azithromycin 500 MG in NS 275 ML IV SCH (08:20)
[2020-02-10] MEDS: Pantoprazole Inj IVP SCH ×2 (08:20→21:59)
[2020-02-10] MEDS: Lyrica 50mg cap ORAL SCH ×2 (08:21→17:53)
[2020-02-10] MEDS: Losartan 50mg tab ORAL SCH (08:22)
[2020-02-10 08:45] LABS: BASOPHILS % (AUTO) 1.2 % (0.0-2.0); EOSINOPHILS % (AUTO) 1.9 % (0.0-3.0); HEMATOCRIT 27.5 % (42.0-52.0); HEMOGLOBIN 9.3 G/DL (14.2-18.0); LYMPHOCYTES % (AUTO) 12.7 % (20.0-45.0); MEAN CORPUSCULAR VOLUME 92 FL (80-99); MONOCYTES % (AUTO) 7.3 % (1.0-10.0); NEUTROPHILS % (AUTO) 76.9 % (45.0-75.0); PLATELET COUNT 248 K/UL (150-450); RED CELL DISTRIBUTION WIDTH 14.1 % (11.6-14.8); WHITE BLOOD COUNT 7.5 K/UL (4.8-10.8)
[2020-02-10] MEDS ORDERED: Losartan 50mg tab ORAL SCH (09:00)
[2020-02-10 09:15] LABS: AMYLASE 19 U/L (25-115)
[2020-02-10 09:24] LABS: ALANINE AMINOTRANSFERASE 20 U/L (12-78); ALBUMIN 2.5 G/DL (3.4-5.0); ALBUMIN/GLOBULIN RATIO 0.6 (1.0-2.7); ALKALINE PHOSPHATASE 1309 U/L (46-116); ANION GAP 7 mmol/L (5-15); ASPARTATE AMINO TRANSFERASE 21 U/L (15-37); BILIRUBIN,TOTAL 1.4 MG/DL (0.2-1.0); BLOOD UREA NITROGEN 61 mg/dL (7-18); CALCIUM 9.1 MG/DL (8.5-10.1); CARBON DIOXIDE 30 MMOL/L (21-32); CHLORIDE 98 MMOL/L (98-107); CREATININE 5.3 MG/DL (0.55-1.30); PHOSPHORUS 2.2 MG/DL (2.5-4.9); POTASSIUM 3.1 MMOL/L (3.5-5.1); SODIUM 135 MMOL/L (136-145)
[2020-02-10 09:35] LABS: BILIRUBIN,DIRECT 1.1 MG/DL (0.0-0.3)
--- NOTE | 2020-02-10 10:35 | Diagnostic Imaging Report ---
Indication: Abdominal pain Technique: Supine view of the abdomen Comparison: No comparison radiographs. Reference made to abdomen/pelvis CT scan dated 01/31/2020 Findings: Unremarkable bowel gas pattern. There is less slightly less colonic gas as compared to prior exam. Mild to moderate retained colonic stool noted. The liver appears enlarged. There are extensive arterial calcifications. No unusual masses. Left hip hardware is noted. Impression: Findings as noted. No definite acute process
--- NOTE | 2020-02-10 11:23 | NUR ---
NURSE NOTES: Report given to Rojelio STONE. All morning medications and IV ATB administered. VS within normal limits. PIV intact. Patient has been discontinued from Droplet precautions, covid negative. Endorsed that patient will need consents obtained for EGD with possible biopsy and colonoscopy with possible biopsy. Paperwork endorsed.
--- NOTE | 2020-02-10 13:55 | Nephrology Progress Note ---
Assessment/Plan Problem List: (1) ESRD (end stage renal disease) on dialysis (2) Bradyarrhythmia (3) Gastrointestinal hemorrhage (4) Hypertensive kidney disease Assessment 1) ESRD on dialysis, will hold dialysis today and reevaluate for possible dialysis tomorrow February 09 (2) GI bleed, for which the patient was sent to emergency room (3) Abdominal distension (4) Anemia (5) Diabetes mellitus (6) history of bradyarrhythmia (7) hypertensive kidney disease (8) history of CVA Plan COVID-19 test negative C. difficile test negative K-Phos IV 20 mmol Gastrointestinal evaluation Hold Eliquis due to GI bleed Hold phosphate binders due to low phosphorus level IV Protonix Potassium supplement 1 time Adjust blood pressure medication with proper parameters Hemodialysis as needed will schedule for tomorrow February 10 2D echocardiogram, ejection fraction 60% Monitor hemoglobin hematocrit Per orders Subjective ROS Limited/Unobtainable: No Constitutional: Reports: malaise, weakness Objective Objective Last 24 Hour Vital Signs Date Time Temp Pulse Resp B/P (MAP) Pulse Ox O2 Delivery O2 Flow Rate FiO2 02/10/20 12:00 99.0 68 19 132/70 (90) 98 02/10/20 09:00 Room Air 02/10/20 08:22 55 120/54 02/10/20 08:22 120/54 02/10/20 08:00 98.8 64 20 138/66 (90) 97 02/10/20 05:28 120/54 02/10/20 04:50 98.6 55 20 137/65 (89) 97 02/10/20 00:00 97.9 58 20 120/54 (76) 95 02/09/20 21:55 118/54 02/09/20 21:00 Room Air 02/09/20 20:00 97.5 55 20 118/54 (75) 95 02/09/20 16:00 98.2 60 19 104/52 (69) 95 02/09/20 13:54 135/62 Intake and Output 02/09/20 02/10/20 19:00 07:00 Intake Total 840 ml 200 ml Output Total 30 ml 1000 ml Balance 810 ml -800 ml Intake Oral 840 ml IV Total 200 ml Output Urine Total 30 ml 1000 ml # Voids 1 # Bowel Movements 2 1 Laboratory Tests 02/09/20 16:00: Stool Occult Blood Negative 02/10/20 08:15: White Blood Count 7.5, Red Blood Count 3.00L, Hemoglobin 9.3L, Hematocrit 27.5L , Mean Corpuscular Volume 92, Mean Corpuscular Hemoglobin 31.0, Mean Corpuscular Hemoglobin Concent 33.8, Red Cell Distribution Width 14.1, Platelet Count 248, Mean Platelet Volume 5.7L, Neutrophils (%) (Auto) 76.9H, Lymphocytes (%) (Auto) 12.7L, Monocytes (%) (Auto) 7.3, Eosinophils (%) (Auto) 1.9, Basophils (%) (Auto) 1.2, Erythrocyte Sedimentation Rate 64H, Prothrombin Time 10.7, Prothromb Time International Ratio 1.0, Activated Partial Thromboplast Time 33, Sodium Level 135L, Potassium Level 3.1L, Chloride Level 98, Carbon Dioxide Level 30, Anion Gap 7, Blood Urea Nitrogen 61H, Creatinine 5.3H, Estimat Glomerular Filtration Rate 11.4, Glucose Level 109H, Calcium Level 9.1, Phosphorus Level 2.2L, Magnesium Level 2.6H, Total Bilirubin 1.4H, Direct Bilirubin 1.1H, Aspartate Amino Transf (AST/SGOT) 21, Alanine Aminotransferase ( ALT/SGPT) 20, Alkaline Phosphatase 1309H, Troponin I 0.002, C-Reactive Protein, Quantitative 9.5H, Pro-B-Type Natriuretic Peptide > 64761C, Total Protein 6.9, Albumin 2.5L, Globulin 4.4, Albumin/Globulin Ratio 0.6L, Amylase Level 19L, Lipase 48L Height (Feet): 5 Height (Inches): 2.00 Weight (Pounds): 134 General Appearance: no apparent distress Cardiovascular: arrhythmia Respiratory/Chest: decreased breath sounds Abdomen: distended Eliazar Fong MD Feb 10, 2020 13:55
[2020-02-10] MEDS: D5NS 1,000 ML IV SCH (14:00)
[2020-02-10] MEDS ORDERED: Nulytely 4L ORAL SCH (14:00)
[2020-02-10] MEDS ORDERED: Potassium Phosphate 20 MM in NS 275 ML IV ONE (15:30)
[2020-02-10] MEDS ORDERED: D5 1/2NS w/KCl 20mEq 1,000 ML IV SCH (16:00)
--- NOTE | 2020-02-10 17:15 | Surgery Progress Note ---
Surgery Progress Note Subjective Symptoms: improved, tolerating diet, passing flatus Additional Comments c diff negative covid negative labs stable d/c planning Objective Last 24 Hour Vital Signs Date Time Temp Pulse Resp B/P (MAP) Pulse Ox O2 Delivery O2 Flow Rate FiO2 02/10/20 16:40 132/70 02/10/20 12:00 99.0 68 19 132/70 (90) 98 02/10/20 09:00 Room Air 02/10/20 08:22 55 120/54 02/10/20 08:22 120/54 02/10/20 08:00 98.8 64 20 138/66 (90) 97 02/10/20 05:28 120/54 02/10/20 04:50 98.6 55 20 137/65 (89) 97 02/10/20 00:00 97.9 58 20 120/54 (76) 95 02/09/20 21:55 118/54 02/09/20 21:00 Room Air 02/09/20 20:00 97.5 55 20 118/54 (75) 95 I&O Intake and Output 02/09/20 02/10/20 19:00 07:00 Intake Total 840 ml 200 ml Output Total 30 ml 1000 ml Balance 810 ml -800 ml Intake Oral 840 ml IV Total 200 ml Output Urine Total 30 ml 1000 ml # Voids 1 # Bowel Movements 2 1 Dressing: other Wound: other Cardiovascular: RSR Respiratory: decreased breath sounds Abdomen: soft, non-tender, present bowel sounds Extremities: no tenderness, no cyanosis Laboratory Tests Test 02/10/20 08:15 White Blood Count 7.5 K/UL (4.8-10.8) Red Blood Count 3.00 M/UL (4.70-6.10) L Hemoglobin 9.3 G/DL (14.2-18.0) L Hematocrit 27.5 % (42.0-52.0) L Mean Corpuscular Volume 92 FL (80-99) Mean Corpuscular Hemoglobin 31.0 PG (27.0-31.0) Mean Corpuscular Hemoglobin Concent 33.8 G/DL (32.0-36.0) Red Cell Distribution Width 14.1 % (11.6-14.8) Platelet Count 248 K/UL (150-450) Mean Platelet Volume 5.7 FL (6.5-10.1) L Neutrophils (%) (Auto) 76.9 % (45.0-75.0) H Lymphocytes (%) (Auto) 12.7 % (20.0-45.0) L Monocytes (%) (Auto) 7.3 % (1.0-10.0) Eosinophils (%) (Auto) 1.9 % (0.0-3.0) Basophils (%) (Auto) 1.2 % (0.0-2.0) Erythrocyte Sedimentation Rate 64 MM/HR (0-20) H Prothrombin Time 10.7 SEC (9.30-11.50) Prothromb Time International Ratio 1.0 (0.9-1.1) Activated Partial Thromboplast Time 33 SEC (23-33) Sodium Level 135 MMOL/L (136-145) L Potassium Level 3.1 MMOL/L (3.5-5.1) L Chloride Level 98 MMOL/L (98-107) Carbon Dioxide Level 30 MMOL/L (21-32) Anion Gap 7 mmol/L (5-15) Blood Urea Nitrogen 61 mg/dL (7-18) H Creatinine 5.3 MG/DL (0.55-1.30) H Estimat Glomerular Filtration Rate 11.4 mL/min (>60) Glucose Level 109 MG/DL (74-106) H Calcium Level 9.1 MG/DL (8.5-10.1) Phosphorus Level 2.2 MG/DL (2.5-4.9) L Magnesium Level 2.6 MG/DL (1.8-2.4) H Total Bilirubin 1.4 MG/DL (0.2-1.0) H Direct Bilirubin 1.1 MG/DL (0.0-0.3) H Aspartate Amino Transf (AST/SGOT) 21 U/L (15-37) Alanine Aminotransferase (ALT/SGPT) 20 U/L (12-78) Alkaline Phosphatase 1309 U/L (46-116) H Troponin I 0.002 ng/mL (0.000-0.056) C-Reactive Protein, Quantitative 9.5 mg/dL (0.00-0.90) H Pro-B-Type Natriuretic Peptide > 17792 pg/mL (0-125) H Total Protein 6.9 G/DL (6.4-8.2) Albumin 2.5 G/DL (3.4-5.0) L Globulin 4.4 g/dL Albumin/Globulin Ratio 0.6 (1.0-2.7) L Amylase Level 19 U/L (25-115) L Lipase 48 U/L (73-393) L Plan Problems: (1) Abdominal distension Assessment & Plan: he appendix is normal. The proximal colon is upper limits of normal caliber, gas and stool-filled. There is a small to moderate amount of ascites fluid. There is congestion of the mesenteric fat. Small bowel loops are somewhat prominent in caliber, and a few may demonstrate slight wall thickening. The distal esophagus, stomach, duodenum are unremarkable. No free intraperitoneal gas. No bowel wall pneumatosis. The colon wall thickening is markedly increased from that reported previously. The lack of IV contrast limits assessment of the solid organs. The liver appears somewhat enlarged. No definite focal abnormality. It is normal in attenuation. The gallbladder is nondistended. The wall appears edematous. No radiopaque gallstones. No biliary ductal dilatation. The pancreas is atrophic. The spleen is grossly normal. The kidneys are grossly unremarkable. No renal or ureteral calculi, hydronephrosis, or hydroureter. Bladder is nondistended. Again demonstrated is mild bladder wall thickening, similar in extent to the previous study. Again demonstrated is left hip surgical hardware. There is diffuse edema of the subcutaneous fat. This is slightly less extensive than on the prior study. Again demonstrated is what appears to be a loculated thick rimmed right pleural effusion. Atelectatic or consolidated lung is demonstrated in the right lower lobe. Groundglass opacities throughout the aerated portions of both lungs appear very similar to the prior exam. There is trace left pleural fluid as well. The heart is enlarged. There are extensive arterial calcifications. Impression: Marked rectal, descending and sigmoid colon wall thickening, consistent with colitis. Nonspecific appearance as regards etiology Ascites, also previously reported Evidence of anasarca, with in addition to the above bilateral pleural effusions, edema subcutaneous fat, and congestion of the mesentery Mild hepatomegaly, also previously reported Right pleural effusion with a thick wall, appearing similar to the previous exam of October 2018. Likely reflects a loculated/organized pleural effusion. Considerable consolidation of much of the right lower lobe. This appears similar to the previous exam. Diffuse groundglass opacity throughout much of the visualized lungs, nonspecific but may reflect pulmonary edema Cardiomegaly Apparent gallbladder wall thickening/edema. Probably an artifact of under distention and manifestation of anasarca. Acute cholecystitis cannot completely excludable, however, and consideration should be given to further workup if there is high clinical suspicion. Apparent bladder wall thickening. Probably an artifact of under distention, unchanged from the prior exam. Cystitis also possible. Other findings as noted, including left hip surgical hardware, extensive arterial calcification KUB noted resolved okay for diet bowel regimen d/c planning (2) Gastrointestinal hemorrhage Assessment & Plan: Patient with possible GI bleed he is noted to have tarry stools. Mucous stools noticed on evaluation loose. No active bleeding identified. Hemoglobin is been stable. CT reviewed patient does have a near pancolitis. No acute surgical intervention at this time. Will monitor with serial abdominal exams Consider GI consultation for procedure/colonoscopy Occult blood stool Trend labs stable no acute bleed d/c planning We will follow with examination IV antibiotics as per PCP or ID Thank you for let me participate patient's care Sukhjinder Tolbert Feb 10, 2020 17:15
[2020-02-10] MEDS ORDERED: ACETAMINOPHEN325 M1 ORAL (18:25)
[2020-02-10] MEDS ORDERED: ACULAR5 ML RIGHT EYE (18:26)
[2020-02-10] MEDS ORDERED: ARTIFICIAL TEAR15 ML BOTH EYES (18:28)
--- NOTE | 2020-02-10 18:30 | Consultation ---
DATE OF CONSULTATION: 02/10/2020 CHIEF COMPLAINT: Gastrointestinal bleeding. HISTORY OF PRESENT ILLNESS: This is a 54-year-old male long-term patient known to me from [facility] in October 2018, at that time, the patient was evaluated by me for cirrhosis, ascites, elevated alkaline phosphatase, possible GI bleeding. On last admission, the patient had endoscopy, which showed evidence of gastritis, otherwise no obvious GI bleeding. In last admission, he was admitted for that. He had endoscopy which showed evidence of gastritis, no evidence of GI bleeding. The patient had 2.5 L paracentesis on last admission. His hepatitis panel was negative. The patient currently lives in a long-term, came back again with melena and black tarry stools. Since admission, the patient had a CT of the abdomen and pelvis which showed evidence of left-sided colitis. Stool for C. diff has been negative. PAST MEDICAL HISTORY: 1. End-stage renal disease on hemodialysis. 2. Chronic elevated alkaline phosphatase in 1000 ranges. 3. Gastritis. 4. Ascites, status post paracentesis. 5. Anasarca. 6. Right pleural effusions. 7. Cardiomegaly. 8. Gallbladder wall thickening. 9. Hepatomegaly. ALLERGIES: No known drug allergies. MEDICATIONS: Please see medication reconciliation list. SOCIAL HISTORY: Currently lives in a long-term. No recent history of tobacco, alcohol, or drug abuse. FAMILY HISTORY: Noncontributory. REVIEW OF SYSTEMS: Limited. PHYSICAL EXAMINATION: VITAL SIGNS: Temperature is 97.9, pulse is 65, respirations 20, blood pressure is 120/54. HEENT: Normocephalic and atraumatic. Pale conjunctivae. NECK: Supple. No evidence of obvious lymphadenopathy. CARDIOVASCULAR: Regular rate and rhythm. Plus S1 and S2. LUNGS: Decreased breath sounds bilaterally based on the supine exam. ABDOMEN: Soft. Mildly distended. There was evidence of ascites on exam. EXTREMITIES: Bilateral lower extremity trace edema. LABORATORY DATA: White count is 7.5, hemoglobin 9, hematocrit 27, platelets are 248. Chem-7, sodium is 135, potassium 3.1, BUN is 61, creatinine 5.3, bilirubin is 1.4. ASSESSMENT AND PLAN: This is a 54-year-old male with cirrhosis, complicated with ascites. The cause of cirrhosis at this time is unknown. Hepatitis panel has been negative in last admission, possibly with prior history of alcohol use. The patient readmitted again with possible GI bleeding, melena, has a CT evidence of ascites and colitis. Plan at this time, we are going to order ultrasound-guided paracentesis. The patient was discussed about having endoscopy and colonoscopy for evaluation of the upper GI bleeding and also given evidence of colitis on the CT scan, the patient agreed for both. We are going to try to schedule him for both tomorrow if the patient is off of isolation per ID. I want to thank, Dr. Ruvalcaba for this kind referral. Dannie Don M.D. DR: Juan Jose JOB#: [id number] CC: Alvaro Ruvalcaba M.D.; Fax#: [phone]
[2020-02-10] MEDS ORDERED: CILOXAN5 ML OP (18:32)
[2020-02-10] MEDS ORDERED: DOCUSATE SODIU100 MG ORAL (18:34)
[2020-02-10] MEDS ORDERED: LACTULOSE20 GM/301 ORAL (18:42)
[2020-02-10] MEDS ORDERED: RENA-VITE RX T1 EAC1 PO (18:50)
[2020-02-10] MEDS ORDERED: TRIAMCINOLONE A15 G1 TP (18:52)
--- NOTE | 2020-02-10 19:44 | NUR ---
HAND-OFF: Report given to GARCIA.
--- NOTE | 2020-02-10 19:45 | NUR ---
NURSE NOTES: RECEIVED PATIENT FROM CHASE STEPHENS. PATIENT IS AWAKE, AAOX4, ON ROOM AIR, NO ACUTE DISTRESS NOTED. IV IS INTACT AND PATENT. AV SHUNT NOTED ON LEFT UPPER ARM. SKIN IS INTACT. PATIENT IS PREPPING FOR AN EGD PROCEDURE SCHEDULED FOR TOMORROW. PATIENT HAS ALREADY FINISHED 2L OF NULYTELY, AND 2L OF NULYTELY REMAINED. PATIENT IS ENCOURAGED TO DRINK 240ML EVERY 10 MINS. RN REINFORCED TEACHING ON PROCEDURE PREPARATION. BED IS LOCKED AND LOW, BED ALARMS ACTIVE, SIDE RAILS UP X2 AND CALL LIGHT IS WITHIN REACH. WILL CONTINUE TO MONITOR.
--- NOTE | 2020-02-10 21:30 | Progress Note ---
DATE: 02/10/2020 HISTORY OF PRESENT ILLNESS: This is a 54-year-old male came with lower GI bleed and abdominal pain. The patient is doing better. No distress. PHYSICAL EXAMINATION: VITAL SIGNS: Blood pressure is 132/70, pulse 68, no fever. CHEST: Bilateral decreased breath sounds. CARDIOVASCULAR: Regular rhythm. ABDOMEN: Soft. EXTREMITIES: CCE. NEUROLOGICAL: Generalized weakness. LABORATORY DATA: Chemistry panel sodium 135, potassium 3.1, BUN 61, and creatinine 5.3. White counts are high. BNP was high. ASSESSMENT AND PLAN: 1. Lower GI bleed. 2. Fluid overload. 3. CHF. 4. COVID negative. 5. Urine showing gram-negative bacilli. 6. We will currently continue current treatment. Nephrology is on consult. ID is also on consult. Continue current treatment. Alvaro Ruvalcaba M.D. DR: Pato JOB#: [id number] CC:
--- NOTE | 2020-02-10 22:00 | NUR ---
NURSE NOTES: PATIENT REFUSED TO DRINK THE REMAINING NULYTELY, ALSO AGGRESSIVELY REFUSED TO LET RN ASSESS STOOL. REINFORCED TEACHING ON PROCEDURE PREPARATION, PATIENT STATED THAT HE "DOES NOT CARE". INFORMED DR. WOLFF.
--- NOTE | 2020-02-10 23:00 | NUR ---
NURSE NOTES: PATIENT RESUMED BACK TO DRINKING NULYTELY. HAD A LARGE BM WITH MANY LARGE PARTICLES NOTED. ENCOURAGED PATIENT TO CONTINUE DRINKING. PATIENT VERBALIZED UNDERSTANDING.
[2020-02-11] VITALS (11 sets, daily range): BP systolic 121–183; BP diastolic 39–80
--- NOTE | 2020-02-11 01:00 | NUR ---
NURSE NOTES: CALLED [facility] AND CONFIRMED APPOINTMENT FOR DIALYSIS TODAY (02/10)
[2020-02-11] MEDS: HydrALAZINE 25mg tab ORAL PRN (04:26)
[2020-02-11] MEDS: NovoLOG Insulin Flexpen SUBQ SCH ×4 (06:30→21:00)
[2020-02-11] MEDS: HydrALAZINE 50mg tab ORAL SCH ×3 (06:48→21:23)
--- NOTE | 2020-02-11 07:00 | NUR ---
NURSE NOTES: PATIENT COMPLETED NULYTELY AND MULTIPLE BM WITH HAS PARTICLES LAST NIGHT. RECEIVED ORDERS FROM DR. WOLFF FOR SALINE FLEET ENEMA THIS MORNING. ENEMA GIVEN. BM IS CLEARING UP, LIQUID, NO PARTICLES NOTED.
[2020-02-11 07:11] LABS: BASOPHILS % (AUTO) 1.2 % (0.0-2.0); EOSINOPHILS % (AUTO) 1.7 % (0.0-3.0); HEMATOCRIT 28.8 % (42.0-52.0); HEMOGLOBIN 9.7 G/DL (14.2-18.0); MEAN CORPUSCULAR VOLUME 91 FL (80-99); MONOCYTES % (AUTO) 6.2 % (1.0-10.0); NEUTROPHILS % (AUTO) 78.9 % (45.0-75.0); PLATELET COUNT 280 K/UL (150-450); RED BLOOD COUNT 3.15 M/UL (4.70-6.10); RED CELL DISTRIBUTION WIDTH 14.2 % (11.6-14.8); WHITE BLOOD COUNT 8.3 K/UL (4.8-10.8)
[2020-02-11 07:12] LABS: AMMONIA 27 umol/L (11-32)
[2020-02-11] MEDS ORDERED: Fleet's Enema 133ml RECTAL SCH (07:30)
[2020-02-11 07:37] LABS: ALANINE AMINOTRANSFERASE 35 U/L (12-78); ALBUMIN 2.5 G/DL (3.4-5.0); ALBUMIN/GLOBULIN RATIO 0.5 (1.0-2.7); ALKALINE PHOSPHATASE 1445 U/L (46-116); ANION GAP 14 mmol/L (5-15); ASPARTATE AMINO TRANSFERASE 43 U/L (15-37); BILIRUBIN,TOTAL 1.4 MG/DL (0.2-1.0); BLOOD UREA NITROGEN 57 mg/dL (7-18); CALCIUM 8.2 MG/DL (8.5-10.1); CARBON DIOXIDE 26 MMOL/L (21-32); CHLORIDE 101 MMOL/L (98-107); CREATININE 5.8 MG/DL (0.55-1.30); PHOSPHORUS 3.8 MG/DL (2.5-4.9); POTASSIUM 3.5 MMOL/L (3.5-5.1); SODIUM 141 MMOL/L (136-145)
--- NOTE | 2020-02-11 07:45 | NUR ---
NURSE NOTES: RECEIVED PATIENT FROM ELIER,RN. PATIENT IS A/A/OX3, GARBLED SPEECH. ON ROOM AIR, NO ACUTE CARDIO-RESP DISTRESS NOTED. IV IS INTACT AND PATENT. AV SHUNT NOTED ON LEFT UPPER ARM. BRUIT FELT ON PALPATION. SKIN IS INTACT. PATIENT IS PREPPING FOR AN EGD PROCEDURE SCHEDULED FOR TODAY. FLEETS ENEMA ADMINISTERED BY ELIER, RN THIS AM. BED IS LOCKED AND IN LOWEST POSITION, BED ALARMS ENGAGED. SIDE RAILS UP X3 AND CALL LIGHT IS WITHIN REACH. WILL CONTINUE TO MONITOR.
[2020-02-11 07:46] LABS: BILIRUBIN,DIRECT 1.1 MG/DL (0.0-0.3)
--- NOTE | 2020-02-11 08:20 | NUR ---
HAND-OFF: Report given to CHASE Reddy. Endorsed plan of care.
[2020-02-11] MEDS: Lyrica 50mg cap ORAL SCH ×2 (08:40→17:41)
[2020-02-11] MEDS: D5NS 1,000 ML IV SCH (08:40)
[2020-02-11] MEDS: Losartan 50mg tab ORAL SCH (08:48)
--- NOTE | 2020-02-11 09:00 | NUR ---
NURSE NOTES: signed consent for HD. will cont the plan of care.
--- NOTE | 2020-02-11 10:35 | NUR ---
NURSE NOTES: off to GI lab. consent and GI checklist done. NPO observed. will cont to monitor.
--- NOTE | 2020-02-11 10:43 | Pre-Procedure Note/Attestation ---
Pre-Procedure Note/Attestation Complete Prior to Procedure Planned Procedure: not applicable Procedure Narrative: esophagogastroduodenoscopy and colonoscopy Indications for Procedure Pre-Operative Diagnosis: gib, anemia Attestation I attest that I discussed the nature of the procedure; its benefits; risks and complications; and alternatives (and the risks and benefits of such alternatives ), prior to the procedure, with the patient (or the patient's legal commissary representative). I attest that, if there was a reasonable possibility of needing a blood transfusion, the patient (or the patient's legal commissary representative) was given the [facility] standardized written summary, pursuant to the [place] Blood Safety Act ([place] Health and Safety Code # 1645, as amended). I attest that I re-evaluated the patient just prior to the surgery and that there has been no change in the patient's H&P, except as documented below: Dannie Don MD February 11, 2020 10:43
[2020-02-11] MEDS ORDERED: NS 500ML IVPB ONE (10:45)
[2020-02-11] MEDS ORDERED: DiphenhydrAMINE 50mg/ml Inj IVP PRN (11:00)
[2020-02-11] MEDS ORDERED: Atropine Inj 1mg/10ml Syr IV PRN (11:00)
[2020-02-11] MEDS ORDERED: Midazolam 2mg/2ml Inj IVP PRN (11:00)
[2020-02-11] MEDS ORDERED: fentaNYL 100 mcg/2 mL IV PRN (11:00)
--- NOTE | 2020-02-11 11:01 | Anethesia Preoperative Eval ---
Anesthesia Pre-op PMH/ROS General Date of Evaluation: February 11, 2020 Time of Evaluation: 10:44 Anesthesiologist: allison ASA Score: ASA 4 Mallampati Score Class I : Soft palate, uvula, fauces, pillars visible Class II: Soft palate, uvula, fauces visible Class III: Soft palate, base of uvula visible Class IV: Only hard plate visible Mallampati Classification: Class II Surgeon: fatuma Diagnosis: gi bleed Surgical Procedure: egd/colonoscopy Anesthesia History: none Family History: no anesthesia problems Allergies: Coded Allergies: No Known Allergies (Unverified , 10/28/18) Medications: see eMAR Patient NPO?: Yes Past Medical History Cardiovascular: Reports: HTN Gastrointestinal/Genitourinary: Reports: GERD, ESRD Neurologic/Psychiatric: Reports: CVA Endocrine: Reports: DM Hematology/Immune: Reports: anemia Anesthesia Pre-op Phys. Exam Physician Exam Last Vital Signs Date Time Temp Pulse Resp B/P (MAP) Pulse Ox O2 Delivery O2 Flow Rate FiO2 02/11/20 09:08 Room Air 02/11/20 08:00 98.1 58 18 162/80 (107) 97 Constitutional: NAD Neurologic: CN 2-12 intact Cardiovascular: other - bradycardia Respiratory: CTA Gastrointestinal: S/NT/ND Airway Exam Mallampati Score: Class II MO: limited Neck: flexible TMD: 2fb ROM: limited Anesthesia Pre-op A/P Labs Hematology Test 02/11/20 05:30 White Blood Count 8.3 K/UL (4.8-10.8) Red Blood Count 3.15 M/UL (4.70-6.10) L Hemoglobin 9.7 G/DL (14.2-18.0) L Hematocrit 28.8 % (42.0-52.0) L Mean Corpuscular Volume 91 FL (80-99) Mean Corpuscular Hemoglobin 30.6 PG (27.0-31.0) Mean Corpuscular Hemoglobin Concent 33.5 G/DL (32.0-36.0) Red Cell Distribution Width 14.2 % (11.6-14.8) Platelet Count 280 K/UL (150-450) Mean Platelet Volume 6.2 FL (6.5-10.1) L Neutrophils (%) (Auto) 78.9 % (45.0-75.0) H Lymphocytes (%) (Auto) 12.0 % (20.0-45.0) L Monocytes (%) (Auto) 6.2 % (1.0-10.0) Eosinophils (%) (Auto) 1.7 % (0.0-3.0) Basophils (%) (Auto) 1.2 % (0.0-2.0) Chemistry Test 02/11/20 05:30 Sodium Level 141 MMOL/L (136-145) Potassium Level 3.5 MMOL/L (3.5-5.1) Chloride Level 101 MMOL/L (98-107) Carbon Dioxide Level 26 MMOL/L (21-32) Anion Gap 14 mmol/L (5-15) Blood Urea Nitrogen 57 mg/dL (7-18) H Creatinine 5.8 MG/DL (0.55-1.30) H Estimat Glomerular Filtration Rate 10.2 mL/min (>60) Glucose Level 103 MG/DL (74-106) Uric Acid 5.7 MG/DL (2.6-7.2) Calcium Level 8.2 MG/DL (8.5-10.1) L Phosphorus Level 3.8 MG/DL (2.5-4.9) Magnesium Level 2.7 MG/DL (1.8-2.4) H Total Bilirubin 1.4 MG/DL (0.2-1.0) H Direct Bilirubin 1.1 MG/DL (0.0-0.3) H Aspartate Amino Transf (AST/SGOT) 43 U/L (15-37) H Alanine Aminotransferase (ALT/SGPT) 35 U/L (12-78) Alkaline Phosphatase 1445 U/L (46-116) H Ammonia 27 umol/L (11-32) Total Protein 7.1 G/DL (6.4-8.2) Albumin 2.5 G/DL (3.4-5.0) L Globulin 4.6 g/dL Albumin/Globulin Ratio 0.5 (1.0-2.7) L Risk Assessment & Plan Assessment: asa4 Plan: mac Status Change Before Surgery: No Pre-Antibiotics Drug: Vicenta Herrera MD February 11, 2020 11:01
--- NOTE | 2020-02-11 11:13 | Endoscopy Procedure Note ---
Endoscopy Procedure Note General Indication for Procedure: gib Procedures Performed: EGD, colonoscopy Operative Findings/Diagnosis: ischemic colitis Specimen: yes Pt Tolerated Procedure Well: Yes Estimated Blood Loss: none Anesthesia Anesthesiologist: lester Anesthesia: MAC Inserted Devices Implant(s) used?: No Quality Quality of Bowel Preparation: Fair GI Core Measures 50 yrs or older w/o bx or poly: Not Applicable 10yrs. F/U recommended: Not Applicable Dannie Don MD February 11, 2020 11:13
--- NOTE | 2020-02-11 11:43 | Surgery Progress Note ---
Surgery Progress Note Subjective Additional Comments labs noted GI input appreciated scope today Objective Last 24 Hour Vital Signs Date Time Temp Pulse Resp B/P (MAP) Pulse Ox O2 Delivery O2 Flow Rate FiO2 02/11/20 11:40 55 15 170/43 99 Room Air 02/11/20 11:35 97.4 54 16 168/45 100 Room Air 02/11/20 11:30 54 15 170/40 98 Room Air 02/11/20 11:25 54 14 171/39 100 Nasal Cannula 3 02/11/20 11:20 53 15 163/41 100 Nasal Cannula 3 02/11/20 11:14 97.8 54 18 157/57 100 Nasal Cannula 3 02/11/20 09:08 Room Air 02/11/20 08:00 98.1 58 18 162/80 (107) 97 02/11/20 06:48 161/71 02/11/20 04:26 161/71 02/11/20 04:00 98.1 53 22 161/71 (101) 94 02/11/20 00:00 97.0 51 18 121/57 (78) 94 02/10/20 22:00 145/59 02/10/20 21:00 Room Air 02/10/20 20:00 97.3 51 20 145/59 (87) 94 02/10/20 16:40 132/70 02/10/20 16:00 98.9 70 19 130/78 (95) 97 02/10/20 12:00 99.0 68 19 132/70 (90) 98 I&O Intake and Output 02/10/20 02/11/20 19:00 07:00 Intake Total 1240 ml 800 ml Balance 1240 ml 800 ml Intake Oral 1240 ml Other 800 ml # Voids 4 # Bowel Movements 4 Dressing: other Wound: other Drains: other Cardiovascular: RSR Respiratory: decreased breath sounds Abdomen: non-tender, present bowel sounds Extremities: no tenderness, no cyanosis Laboratory Tests Test 02/11/20 05:30 White Blood Count 8.3 K/UL (4.8-10.8) Red Blood Count 3.15 M/UL (4.70-6.10) L Hemoglobin 9.7 G/DL (14.2-18.0) L Hematocrit 28.8 % (42.0-52.0) L Mean Corpuscular Volume 91 FL (80-99) Mean Corpuscular Hemoglobin 30.6 PG (27.0-31.0) Mean Corpuscular Hemoglobin Concent 33.5 G/DL (32.0-36.0) Red Cell Distribution Width 14.2 % (11.6-14.8) Platelet Count 280 K/UL (150-450) Mean Platelet Volume 6.2 FL (6.5-10.1) L Neutrophils (%) (Auto) 78.9 % (45.0-75.0) H Lymphocytes (%) (Auto) 12.0 % (20.0-45.0) L Monocytes (%) (Auto) 6.2 % (1.0-10.0) Eosinophils (%) (Auto) 1.7 % (0.0-3.0) Basophils (%) (Auto) 1.2 % (0.0-2.0) Sodium Level 141 MMOL/L (136-145) Potassium Level 3.5 MMOL/L (3.5-5.1) Chloride Level 101 MMOL/L (98-107) Carbon Dioxide Level 26 MMOL/L (21-32) Anion Gap 14 mmol/L (5-15) Blood Urea Nitrogen 57 mg/dL (7-18) H Creatinine 5.8 MG/DL (0.55-1.30) H Estimat Glomerular Filtration Rate 10.2 mL/min (>60) Glucose Level 103 MG/DL (74-106) Uric Acid 5.7 MG/DL (2.6-7.2) Calcium Level 8.2 MG/DL (8.5-10.1) L Phosphorus Level 3.8 MG/DL (2.5-4.9) Magnesium Level 2.7 MG/DL (1.8-2.4) H Total Bilirubin 1.4 MG/DL (0.2-1.0) H Direct Bilirubin 1.1 MG/DL (0.0-0.3) H Aspartate Amino Transf (AST/SGOT) 43 U/L (15-37) H Alanine Aminotransferase (ALT/SGPT) 35 U/L (12-78) Alkaline Phosphatase 1445 U/L (46-116) H Ammonia 27 umol/L (11-32) Total Protein 7.1 G/DL (6.4-8.2) Albumin 2.5 G/DL (3.4-5.0) L Globulin 4.6 g/dL Albumin/Globulin Ratio 0.5 (1.0-2.7) L Plan Problems: (1) Abdominal distension Assessment & Plan: he appendix is normal. The proximal colon is upper limits of normal caliber, gas and stool-filled. There is a small to moderate amount of ascites fluid. There is congestion of the mesenteric fat. Small bowel loops are somewhat prominent in caliber, and a few may demonstrate slight wall thickening. The distal esophagus, stomach, duodenum are unremarkable. No free intraperitoneal gas. No bowel wall pneumatosis. The colon wall thickening is markedly increased from that reported previously. The lack of IV contrast limits assessment of the solid organs. The liver appears somewhat enlarged. No definite focal abnormality. It is normal in attenuation. The gallbladder is nondistended. The wall appears edematous. No radiopaque gallstones. No biliary ductal dilatation. The pancreas is atrophic. The spleen is grossly normal. The kidneys are grossly unremarkable. No renal or ureteral calculi, hydronephrosis, or hydroureter. Bladder is nondistended. Again demonstrated is mild bladder wall thickening, similar in extent to the previous study. Again demonstrated is left hip surgical hardware. There is diffuse edema of the subcutaneous fat. This is slightly less extensive than on the prior study. Again demonstrated is what appears to be a loculated thick rimmed right pleural effusion. Atelectatic or consolidated lung is demonstrated in the right lower lobe. Groundglass opacities throughout the aerated portions of both lungs appear very similar to the prior exam. There is trace left pleural fluid as well. The heart is enlarged. There are extensive arterial calcifications. Impression: Marked rectal, descending and sigmoid colon wall thickening, consistent with colitis. Nonspecific appearance as regards etiology Ascites, also previously reported Evidence of anasarca, with in addition to the above bilateral pleural effusions, edema subcutaneous fat, and congestion of the mesentery Mild hepatomegaly, also previously reported Right pleural effusion with a thick wall, appearing similar to the previous exam of October 2018. Likely reflects a loculated/organized pleural effusion. Considerable consolidation of much of the right lower lobe. This appears similar to the previous exam. Diffuse groundglass opacity throughout much of the visualized lungs, nonspecific but may reflect pulmonary edema Cardiomegaly Apparent gallbladder wall thickening/edema. Probably an artifact of under distention and manifestation of anasarca. Acute cholecystitis cannot completely excludable, however, and consideration should be given to further workup if there is high clinical suspicion. Apparent bladder wall thickening. Probably an artifact of under distention, unchanged from the prior exam. Cystitis also possible. Other findings as noted, including left hip surgical hardware, extensive arterial calcification KUB noted resolved okay for diet bowel regimen d/c planning (2) Gastrointestinal hemorrhage Assessment & Plan: Patient with possible GI bleed he is noted to have tarry stools. Mucous stools noticed on evaluation loose. No active bleeding identified. Hemoglobin is been stable. CT reviewed patient does have a near pancolitis. No acute surgical intervention at this time. Will monitor with serial abdominal exams Consider GI consultation for procedure/colonoscopy Occult blood stool Trend labs stable no acute bleed d/c planning We will follow with examination IV antibiotics as per PCP or ID Thank you for let me participate patient's care Scope today Sukhjinder Tolbert February 11, 2020 11:43
--- NOTE | 2020-02-11 12:12 | Nephrology Progress Note ---
Assessment/Plan Problem List: (1) ESRD (end stage renal disease) on dialysis (2) Bradyarrhythmia (3) Gastrointestinal hemorrhage (4) Hypertensive kidney disease Assessment 1) ESRD on dialysis, will hold dialysis today and reevaluate for possible dialysis tomorrow February 09 (2) GI bleed, for which the patient was sent to emergency room (3) Abdominal distension (4) Anemia (5) Diabetes mellitus (6) history of bradyarrhythmia (7) hypertensive kidney disease (8) history of CVA Plan COVID-19 test negative C. difficile test negative Due for dialysis today Gastrointestinal evaluation, plan for colonoscopy today Hold Eliquis due to GI bleed Hold phosphate binders due to low phosphorus level IV Protonix Potassium supplement 1 time Adjust blood pressure medication with proper parameters Hemodialysis as needed will schedule for tomorrow February 10 2D echocardiogram, ejection fraction 60% Monitor hemoglobin hematocrit Per orders Subjective ROS Limited/Unobtainable: No Constitutional: Reports: malaise, weakness Objective Objective Last 24 Hour Vital Signs Date Time Temp Pulse Resp B/P (MAP) Pulse Ox O2 Delivery O2 Flow Rate FiO2 02/11/20 11:40 55 15 170/43 99 Room Air 02/11/20 11:35 97.4 54 16 168/45 100 Room Air 02/11/20 11:30 54 15 170/40 98 Room Air 02/11/20 11:25 54 14 171/39 100 Nasal Cannula 3 02/11/20 11:20 53 15 163/41 100 Nasal Cannula 3 02/11/20 11:14 97.8 54 18 157/57 100 Nasal Cannula 3 02/11/20 09:08 Room Air 02/11/20 08:00 98.1 58 18 162/80 (107) 97 02/11/20 06:48 161/71 02/11/20 04:26 161/71 02/11/20 04:00 98.1 53 22 161/71 (101) 94 02/11/20 00:00 97.0 51 18 121/57 (78) 94 02/10/20 22:00 145/59 02/10/20 21:00 Room Air 02/10/20 20:00 97.3 51 20 145/59 (87) 94 02/10/20 16:40 132/70 02/10/20 16:00 98.9 70 19 130/78 (95) 97 Intake and Output 02/10/20 02/11/20 19:00 07:00 Intake Total 1240 ml 800 ml Balance 1240 ml 800 ml Intake Oral 1240 ml Other 800 ml # Voids 4 # Bowel Movements 4 Laboratory Tests 02/11/20 05:30: White Blood Count 8.3, Red Blood Count 3.15L, Hemoglobin 9.7L, Hematocrit 28.8L , Mean Corpuscular Volume 91, Mean Corpuscular Hemoglobin 30.6, Mean Corpuscular Hemoglobin Concent 33.5, Red Cell Distribution Width 14.2, Platelet Count 280, Mean Platelet Volume 6.2L, Neutrophils (%) (Auto) 78.9H, Lymphocytes (%) (Auto) 12.0L, Monocytes (%) (Auto) 6.2, Eosinophils (%) (Auto) 1.7, Basophils (%) (Auto) 1.2, Sodium Level 141, Potassium Level 3.5, Chloride Level 101, Carbon Dioxide Level 26, Anion Gap 14, Blood Urea Nitrogen 57H, Creatinine 5.8H, Estimat Glomerular Filtration Rate 10.2, Glucose Level 103, Uric Acid 5.7 , Calcium Level 8.2L, Phosphorus Level 3.8, Magnesium Level 2.7H, Total Bilirubin 1.4H, Direct Bilirubin 1.1H, Aspartate Amino Transf (AST/SGOT) 43H, Alanine Aminotransferase (ALT/SGPT) 35, Alkaline Phosphatase 1445H, Ammonia 27, Total Protein 7.1, Albumin 2.5L, Globulin 4.6, Albumin/Globulin Ratio 0.5L Height (Feet): 5 Height (Inches): 5.00 Weight (Pounds): 134 General Appearance: no apparent distress Cardiovascular: bradycardia Respiratory/Chest: decreased breath sounds Abdomen: distended Eliazar Fong MD February 11, 2020 12:12
--- NOTE | 2020-02-11 12:15 | Immediate Post-Op Evaluation ---
Immediate Post-Op Evalulation Immediate Post-Op Evalulation Procedure: egd/colonoscopy w/bx Date of Evaluation: February 11, 2020 Time of Evaluation: 11:26 IV Fluids: 100ml 0.9ns Blood Products: none Estimated Blood Loss: negligible Blood Pressure Systolic: 157 Blood Pressure Diastolic: 37 Pulse Rate: 54 Respiratory Rate: 18 O2 Sat by Pulse Oximetry: 100 Temperature (Fahrenheit): 97.8 Pain Score (1-10): 0 Nausea: No Vomiting: No Complications none Patient Status: awake, reacts, patent Hydration Status: adequate Drug: Vicenta Herrera MD February 11, 2020 12:15
[2020-02-11] MEDS: Azithromycin 500 MG in NS 275 ML IV SCH (12:16)
[2020-02-11] MEDS: Pantoprazole Inj IVP SCH ×2 (12:16→21:22)
--- NOTE | 2020-02-11 12:17 | Immediate Post-Op Evaluation ---
Immediate Post-Op Evalulation Immediate Post-Op Evalulation Procedure: egd/colonoscopy w/bx Date of Evaluation: February 11, 2020 Time of Evaluation: 11:28 IV Fluids: 100ml 0.9ns Blood Products: none Estimated Blood Loss: negligible Blood Pressure Systolic: 161 Blood Pressure Diastolic: 41 Pulse Rate: 53 Respiratory Rate: 18 O2 Sat by Pulse Oximetry: 100 Temperature (Fahrenheit): 97.8 Pain Score (1-10): 0 Nausea: No Vomiting: No Complications none Patient Status: awake, reacts, patent Hydration Status: adequate Drug: Vicenta Herrera MD February 11, 2020 12:17
--- NOTE | 2020-02-11 12:18 | 48 Hour Post Anesthesia Eval ---
Post Anesthesia Evaluation Procedure: egd/colonoscopy w/bx Date of Evaluation: February 11, 2020 Time of Evaluation: 11:28 Blood Pressure Systolic: 169 0: 45 Pulse Rate: 54 Respiratory Rate: 18 Temperature (Fahrenheit): 97.8 O2 Sat by Pulse Oximetry: 100 Airway: patent Nausea: No Vomiting: No Pain Intensity: 0 Hydration Status: adequate Cardiopulmonary Status: stable Mental Status/LOC: patient returned to baseline Post-Anesthesia Complications: none Follow-up care needed: N/A Vicenta Zheng MD February 11, 2020 12:18
--- NOTE | 2020-02-11 12:30 | NUR ---
RD ASSESSMENT & RECOMMENDATIONS SEE CARE ACTIVITY FOR COMPLETE ASSESSMENT DAILY ESTIMATED NEEDS: Needs based on ESRD on HD 60.9kg 30-35 kcals/kg 0410-6523 total kcals 1.25-1.8 g protein/kg 76-110 g total protein Fluid per MD, on HD NUTRITION DIAGNOSIS: Increased kcal and pro needs r/t renal dysfunction as evidenced by esrd on HD. CURRENT DIET: Now CLD PO DIET RECOMMENDATIONS: As able, advance to Low Fiber / Renal diet ADDITIONAL RECOMMENDATIONS: 1) F/up w/ GI procedure 2) Add Nepro when diet is advanced (Ensure Clear for CLD) 3) Obtain calibrated bed scale wts Addendum: 02/11/20 at [address] 4) As tolerated rec Pardeep BID for skin integrity
--- NOTE | 2020-02-11 16:20 | NUR ---
NURSE NOTES: off the unit for paracentesis.
--- NOTE | 2020-02-11 16:31 | NUR ---
CASE MANAGEMENT: INITIAL REVIEW 54YR OLD MALE BIBA FROM [facility] CC: GASTROINTESTINAL BLEED SI:GI HEMORRHAGE . ESRD ON HD MWF . 98.3 67 17 116/60 96% ON RA WBC 14.2 PT/INR 12.5/1.2 PTT 36 K+ 2.9 CO2 33 BUN 44 CREAT 3.7 BG 149 T.ANNY/D.ANNY 2.2/2.0 BNP >26806 ALKP 1155 IS:IV NS BOLUS X1 HYDRALAZINE PO Q8HR CHEST X-RAY- Right pleural effusion; Cardiomegaly; Generalized mild interstitial congestion CT ABD/PEL- Marked rectal, descending and sigmoid colon; Ascites,anasarca \: 4E MED SURG UNIT DCP: [facility] WHEN STABLE CASE MANAGEMENT:REVIEW 02/11/20 SI:GI HEMORRHAGE . ESRD ON HD MWF . 98.1 58 20 180/70 97/% ON RA H/H 9.7/28.8 BUN 57 CREAT 5.8 MG 2.8 T.ANNY/D.ANNY- 1.4/1.1 ALKP 1445 ALB 2.5 IS:IN SURGERY FOR EDG WITH BIOPSY + COLONOSCOPY IV FLAGYL TID IV D5/NS @50ML/HR IV ZITHROMAX QD NEURONTIN PO TID HYDRALAZINE PO TID IV PROTONIX BID \: 4E MED SURG UNIT DCP: [facility] WHEN STABLE :
--- NOTE | 2020-02-11 16:54 | Pre-Procedure Note/Attestation ---
Pre-Procedure Note/Attestation Complete Prior to Procedure Planned Procedure: not applicable Procedure Narrative: paracentesis Indications for Procedure Pre-Operative Diagnosis: ascites Attestation I attest that I discussed the nature of the procedure; its benefits; risks and complications; and alternatives (and the risks and benefits of such alternatives ), prior to the procedure, with the patient (or the patient's legal business services sales representative). I attest that, if there was a reasonable possibility of needing a blood transfusion, the patient (or the patient's legal business services sales representative) was given the [facility] standardized written summary, pursuant to the Carlos Tong Blood Safety Act ([place] Health and Safety Code # 1645, as amended). I attest that I re-evaluated the patient just prior to the surgery and that there has been no change in the patient's H&P, except as documented below: Dio Liang MD February 11, 2020 16:54
--- NOTE | 2020-02-11 16:55 | Brief Operative Note ---
Immediate Post Operative Note Operative Note Pre-op Diagnosis: ascites Procedure: paracentesis Post-op Diagnosis: same as pre-op Surgeon: Krystal Ludwig Anesthesia: local Specimen: yes Complications: none Fluids: none Implant(s) used?: No Dio Ludwig MD February 11, 2020 16:55
--- NOTE | 2020-02-11 16:57 | Diagnostic Imaging Report ---
Indications: Ascites Technique: Ultrasound used to localize optimal puncture site. Sterile prepping and draping right lower quadrant. Local anesthesia with 1% lidocaine. Under real-time ultrasound guidance, puncture peritoneal space using paracentesis needle. Stylet removed. Catheter placed to vacuum bottle suction. Total 2 liters of fluid aspirated. Patient tolerated procedure well, without immediate complication. Findings: Followup sonography demonstrates complete resolution of peritoneal fluid. Impression: Successful ultrasound-guided paracentesis, yielding 2 liters of fluid
--- NOTE | 2020-02-11 18:00 | Procedure Note ---
DATE OF PROCEDURE: 02/11/2020 SURGEON: Dannie Don M.D. PROCEDURE: Upper endoscopy with biopsy and colonoscopy with biopsy. ANESTHESIA: Per Dr. Zuniga. INSTRUMENT: Olympus adult flexible upper endoscope and colonoscope. INDICATION: GI bleeding. REASON FOR PROCEDURE: The procedure, risks, benefits, and possible consequences, including hemorrhage, aspiration, perforation and infection, and alternative treatments, were explained to the patient/legal guardian by Dr. Dannie Don and the patient/legal guardian understood and accepted these risks. DESCRIPTION OF PROCEDURE: After informed consent was obtained and the patient was adequately sedated, Olympus upper endoscope was advanced from mouth into the second portion of the duodenum and retroflexion was performed in the stomach. The patient had evidence of diffuse gastritis. Random biopsy from antrum was obtained to rule out H. pylori infection. The rest of the upper endoscopic examination grossly looked within normal limits. At this time, the upper endoscope was retrieved and the patient was turned over for colonoscopy. First, rectal exam was performed, which was positive for internal hemorrhoids. Then, the scope was advanced from rectum into the cecum documented by appendiceal orifice, ileocecal valve, and right upper quadrant palpation. Quality of prep was good except for cecum area. The patient had evidence of severe ischemic colitis at about 30 cm from the anal verge in the sigmoid colon expanding to about 5 to 10 cm in range, severe necrosis and inflammation. Biopsy from this area was obtained for diagnosis. The rest of the examination grossly within normal limits. Retroflexion of the rectum showed evidence of internal hemorrhoids. SUMMARY OF FINDINGS: 1. Gastritis, status post biopsy. 2. Significant ischemic colitis in the sigmoid area status post biopsy. 3. Internal hemorrhoids. RECOMMENDATIONS: 1. Antibiotics. 2. Clear liquid diet and advance as tolerated. 3. Monitor exam daily. 4. Monitor laboratories. 5. Follow biopsy results. Dannie Don M.D. DR: Juan Jose JOB#: [id number] CC:
--- NOTE | 2020-02-11 19:12 | NUR ---
HAND-OFF: Report given to kasandra.
--- NOTE | 2020-02-11 21:00 | NUR ---
NURSE NOTES: HD nurse spoke with Charge nurse. Unable to do HD for patient today due to scheduling issues. Per HD nurse, Dr. Fong was made aware. Will continue plan of care for patient and administer BP medications as scheduled.
[2020-02-12] VITALS (7 sets, daily range): BP systolic 144–184; BP diastolic 64–88
[2020-02-12] MEDS: HydrALAZINE 25mg tab ORAL PRN ×2 (00:04→17:19)
[2020-02-12] MEDS: HydrALAZINE 50mg tab ORAL SCH ×3 (05:29→21:02)
[2020-02-12] MEDS: D5NS 1,000 ML IV SCH (05:31)
[2020-02-12] MEDS: NovoLOG Insulin Flexpen SUBQ SCH ×4 (05:40→21:00)
--- NOTE | 2020-02-12 07:21 | NUR ---
HAND-OFF: Report given to Lynsey CRAFT. Spoke to Dr. Don re: patient requesting to have solid food. Per Dr. Don, he will look at the chart before ordering.
--- NOTE | 2020-02-12 07:25 | General Progress Note ---
Assessment/Plan Problem List: (1) Hypertensive kidney disease ICD Codes: I12.9 - Hypertensive chronic kidney disease with stage 1 through stage 4 chronic kidney disease, or unspecified chronic kidney disease SNOMED: 06155674 (2) Gastrointestinal hemorrhage ICD Codes: K92.2 - Gastrointestinal hemorrhage, unspecified SNOMED: 99447824 (3) ESRD (end stage renal disease) on dialysis ICD Codes: N18.6 - End stage renal disease; Z99.2 - Dependence on renal dialysis SNOMED: 141488143 (4) Anemia ICD Codes: D64.9 - Anemia, unspecified SNOMED: 406698940 (5) Diabetes mellitus ICD Codes: E11.9 - Type 2 diabetes mellitus without complications SNOMED: 77694867 (6) Cirrhosis ICD Codes: K74.60 - Unspecified cirrhosis of liver SNOMED: 12629606 (7) Ascites ICD Codes: R18.8 - Other ascites SNOMED: 139900244 (8) Ischemic colitis ICD Codes: K55.9 - Vascular disorder of intestine, unspecified SNOMED: 94718618 Assessment/Plan: s/p EGD and colonoscopy SUMMARY OF FINDINGS: 1. Gastritis, status post biopsy. 2. Significant ischemic colitis in the sigmoid area status post biopsy. 3. Internal hemorrhoids. s/p paracentesis fu path advance diet abx will fu Subjective ROS Limited/Unobtainable: Yes Allergies: Coded Allergies: No Known Allergies (Unverified , 10/28/18) Objective Last 24 Hour Vital Signs Date Time Temp Pulse Resp B/P (MAP) Pulse Ox O2 Delivery O2 Flow Rate FiO2 02/12/20 05:29 156/64 02/12/20 04:00 97.3 58 20 156/64 (94) 98 02/12/20 00:04 178/65 02/12/20 00:00 97.7 55 20 178/65 (102) 92 02/11/20 21:23 184/93 02/11/20 21:00 Room Air 02/11/20 20:00 97.9 57 20 183/68 (106) 98 02/11/20 13:08 169/45 02/11/20 12:18 54 18 100 02/11/20 12:17 53 18 100 02/11/20 12:15 54 18 100 02/11/20 12:00 98.1 58 20 180/70 (106) 97 02/11/20 11:40 55 15 170/43 99 Room Air 02/11/20 11:35 97.4 54 16 168/45 100 Room Air 02/11/20 11:30 54 15 170/40 98 Room Air 02/11/20 11:25 54 14 171/39 100 Nasal Cannula 3 02/11/20 11:20 53 15 163/41 100 Nasal Cannula 3 02/11/20 11:14 97.8 54 18 157/57 100 Nasal Cannula 3 02/11/20 09:08 Room Air 02/11/20 08:00 98.1 58 18 162/80 (107) 97 Intake and Output 02/11/20 02/12/20 19:00 07:00 Intake Total 545 ml 1030 ml Output Total 0 ml Balance 545 ml 1030 ml IV Total 545 ml 670 ml Other 360 ml Estimated Blood Loss 0 ml # Voids 1 # Bowel Movements 3 1 Laboratory Tests 02/11/20 14:00: Body Fluid Total Protein [Pending] 02/12/20 05:45: White Blood Count [Pending], Red Blood Count [Pending], Hemoglobin [Pending], Hematocrit [Pending], Mean Corpuscular Volume [Pending], Mean Corpuscular Hemoglobin [Pending], Mean Corpuscular Hemoglobin Concent [Pending], Red Cell Distribution Width [Pending], Platelet Count [Pending], Mean Platelet Volume [ Pending], Neutrophils (%) (Auto) [Pending], Lymphocytes (%) (Auto) [Pending], Monocytes (%) (Auto) [Pending], Eosinophils (%) (Auto) [Pending], Basophils (%) (Auto) [Pending], Sodium Level [Pending], Potassium Level [Pending], Chloride Level [Pending], Carbon Dioxide Level [Pending], Blood Urea Nitrogen [Pending], Creatinine [Pending], Estimat Glomerular Filtration Rate [Pending], Glucose Level [Pending], Calcium Level [Pending], Phosphorus Level [Pending], Magnesium Level [Pending], Total Bilirubin [Pending], Direct Bilirubin [Pending], Aspartate Amino Transf (AST/SGOT) [Pending], Alanine Aminotransferase (ALT/SGPT ) [Pending], Alkaline Phosphatase [Pending], C-Reactive Protein, Quantitative [ Pending], Pro-B-Type Natriuretic Peptide [Pending], Total Protein [Pending], Albumin [Pending] Height (Feet): 5 Height (Inches): 5.00 Weight (Pounds): 135 General Appearance: no apparent distress EENT: normal ENT inspection Neck: supple Cardiovascular: normal rate Respiratory/Chest: decreased breath sounds Abdomen: normal bowel sounds, non tender, soft Extremities: non-tender Dannie Don MD February 12, 2020 07:25
[2020-02-12 07:30] LABS: ANION GAP 13 mmol/L (5-15); BLOOD UREA NITROGEN 62 mg/dL (7-18); CALCIUM 8.3 MG/DL (8.5-10.1); CARBON DIOXIDE 25 MMOL/L (21-32); CHLORIDE 102 MMOL/L (98-107); CREATININE 6.5 MG/DL (0.55-1.30); POTASSIUM 3.3 MMOL/L (3.5-5.1); SODIUM 140 MMOL/L (136-145)
--- NOTE | 2020-02-12 07:30 | NUR ---
NURSE NOTES: RECEIVED PATIENT FROM [facility]. PATIENT IS A/A/OX3, GARBLED SPEECH. ON ROOM AIR, NO ACUTE CARDIO-RESP DISTRESS NOTED. IV IS INTACT AND PATENT. AV SHUNT NOTED ON LEFT UPPER ARM. BRUIT FELT ON PALPATION. SKIN IS INTACT. ANTICIPATES HD TODAY. BED IS LOCKED AND IN LOWEST POSITION, BED ALARMS ENGAGED. SIDE RAILS UP X3 AND CALL LIGHT IS WITHIN REACH. WILL CONTINUE TO MONITOR.
[2020-02-12 07:34] LABS: BASOPHILS % (AUTO) 2.1 % (0.0-2.0); EOSINOPHILS % (AUTO) 2.1 % (0.0-3.0); HEMATOCRIT 29.6 % (42.0-52.0); HEMOGLOBIN 9.8 G/DL (14.2-18.0); LYMPHOCYTES % (AUTO) 11.7 % (20.0-45.0); MEAN CORPUSCULAR VOLUME 91 FL (80-99); MONOCYTES % (AUTO) 8.1 % (1.0-10.0); NEUTROPHILS % (AUTO) 75.9 % (45.0-75.0); PLATELET COUNT 243 K/UL (150-450); RED BLOOD COUNT 3.25 M/UL (4.70-6.10); RED CELL DISTRIBUTION WIDTH 14.4 % (11.6-14.8); WHITE BLOOD COUNT 7.1 K/UL (4.8-10.8)
[2020-02-12 07:42] LABS: ALBUMIN 2.3 G/DL (3.4-5.0); ALKALINE PHOSPHATASE 1128 U/L (46-116); ASPARTATE AMINO TRANSFERASE 21 U/L (15-37); BILIRUBIN,DIRECT 0.9 MG/DL (0.0-0.3); BILIRUBIN,TOTAL 1.1 MG/DL (0.2-1.0); PHOSPHORUS 4.4 MG/DL (2.5-4.9)
[2020-02-12 08:16] LABS: ALANINE AMINOTRANSFERASE 16 U/L (12-78)
[2020-02-12] MEDS: Lyrica 50mg cap ORAL SCH ×2 (08:36→17:18)
[2020-02-12] MEDS: Losartan 50mg tab ORAL SCH (08:55)
[2020-02-12] MEDS: Pantoprazole Inj IVP SCH ×2 (09:00→20:58)
[2020-02-12] MEDS: Azithromycin 500 MG in NS 275 ML IV SCH (09:00)
--- NOTE | 2020-02-12 09:00 | NUR ---
NURSE NOTES: HD NURSE @ BEDSIDE.
--- NOTE | 2020-02-12 10:38 | Surgery Progress Note ---
Surgery Progress Note Subjective Additional Comments scope results noted tolerating diet labs reviewed comfortable o complaints Objective Last 24 Hour Vital Signs Date Time Temp Pulse Resp B/P (MAP) Pulse Ox O2 Delivery O2 Flow Rate FiO2 02/12/20 09:00 Room Air 02/12/20 08:55 62 144/68 02/12/20 08:55 144/68 02/12/20 08:00 97.8 62 20 144/68 (93) 98 02/12/20 05:29 156/64 02/12/20 04:00 97.3 58 20 156/64 (94) 98 02/12/20 00:04 178/65 02/12/20 00:00 97.7 55 20 178/65 (102) 92 02/11/20 21:23 184/93 02/11/20 21:00 Room Air 02/11/20 20:00 97.9 57 20 183/68 (106) 98 02/11/20 13:08 169/45 02/11/20 12:18 54 18 100 02/11/20 12:17 53 18 100 02/11/20 12:15 54 18 100 02/11/20 12:00 98.1 58 20 180/70 (106) 97 02/11/20 11:40 55 15 170/43 99 Room Air 02/11/20 11:35 97.4 54 16 168/45 100 Room Air 02/11/20 11:30 54 15 170/40 98 Room Air 02/11/20 11:25 54 14 171/39 100 Nasal Cannula 3 02/11/20 11:20 53 15 163/41 100 Nasal Cannula 3 02/11/20 11:14 97.8 54 18 157/57 100 Nasal Cannula 3 I&O Intake and Output 02/11/20 02/12/20 19:00 07:00 Intake Total 545 ml 1030 ml Output Total 0 ml Balance 545 ml 1030 ml IV Total 545 ml 670 ml Other 360 ml Estimated Blood Loss 0 ml # Voids 1 # Bowel Movements 3 1 Cardiovascular: RSR Respiratory: decreased breath sounds Abdomen: soft, non-tender, present bowel sounds, non-distended Extremities: no tenderness, no cyanosis Laboratory Tests Test 02/11/20 14:00 02/12/20 05:45 Body Fluid Total Protein 3.7 g/dL (.) White Blood Count 7.1 K/UL (4.8-10.8) Red Blood Count 3.25 M/UL (4.70-6.10) L Hemoglobin 9.8 G/DL (14.2-18.0) L Hematocrit 29.6 % (42.0-52.0) L Mean Corpuscular Volume 91 FL (80-99) Mean Corpuscular Hemoglobin 30.3 PG (27.0-31.0) Mean Corpuscular Hemoglobin Concent 33.3 G/DL (32.0-36.0) Red Cell Distribution Width 14.4 % (11.6-14.8) Platelet Count 243 K/UL (150-450) Mean Platelet Volume 6.1 FL (6.5-10.1) L Neutrophils (%) (Auto) 75.9 % (45.0-75.0) H Lymphocytes (%) (Auto) 11.7 % (20.0-45.0) L Monocytes (%) (Auto) 8.1 % (1.0-10.0) Eosinophils (%) (Auto) 2.1 % (0.0-3.0) Basophils (%) (Auto) 2.1 % (0.0-2.0) H Sodium Level 140 MMOL/L (136-145) Potassium Level 3.3 MMOL/L (3.5-5.1) L Chloride Level 102 MMOL/L (98-107) Carbon Dioxide Level 25 MMOL/L (21-32) Anion Gap 13 mmol/L (5-15) Blood Urea Nitrogen 62 mg/dL (7-18) H Creatinine 6.5 MG/DL (0.55-1.30) H Estimat Glomerular Filtration Rate 9.0 mL/min (>60) Glucose Level 94 MG/DL (74-106) Calcium Level 8.3 MG/DL (8.5-10.1) L Phosphorus Level 4.4 MG/DL (2.5-4.9) Magnesium Level 2.6 MG/DL (1.8-2.4) H Total Bilirubin 1.1 MG/DL (0.2-1.0) H Direct Bilirubin 0.9 MG/DL (0.0-0.3) H Aspartate Amino Transf (AST/SGOT) 21 U/L (15-37) Alanine Aminotransferase (ALT/SGPT) 16 U/L (12-78) Alkaline Phosphatase 1128 U/L (46-116) H C-Reactive Protein, Quantitative 4.4 mg/dL (0.00-0.90) H Pro-B-Type Natriuretic Peptide > 99455 pg/mL (0-125) H Total Protein 5.9 G/DL (6.4-8.2) L Albumin 2.3 G/DL (3.4-5.0) L Plan Problems: (1) Abdominal distension Assessment & Plan: he appendix is normal. The proximal colon is upper limits of normal caliber, gas and stool-filled. There is a small to moderate amount of ascites fluid. There is congestion of the mesenteric fat. Small bowel loops are somewhat prominent in caliber, and a few may demonstrate slight wall thickening. The distal esophagus, stomach, duodenum are unremarkable. No free intraperitoneal gas. No bowel wall pneumatosis. The colon wall thickening is markedly increased from that reported previously. The lack of IV contrast limits assessment of the solid organs. The liver appears somewhat enlarged. No definite focal abnormality. It is normal in attenuation. The gallbladder is nondistended. The wall appears edematous. No radiopaque gallstones. No biliary ductal dilatation. The pancreas is atrophic. The spleen is grossly normal. The kidneys are grossly unremarkable. No renal or ureteral calculi, hydronephrosis, or hydroureter. Bladder is nondistended. Again demonstrated is mild bladder wall thickening, similar in extent to the previous study. Again demonstrated is left hip surgical hardware. There is diffuse edema of the subcutaneous fat. This is slightly less extensive than on the prior study. Again demonstrated is what appears to be a loculated thick rimmed right pleural effusion. Atelectatic or consolidated lung is demonstrated in the right lower lobe. Groundglass opacities throughout the aerated portions of both lungs appear very similar to the prior exam. There is trace left pleural fluid as well. The heart is enlarged. There are extensive arterial calcifications. Impression: Marked rectal, descending and sigmoid colon wall thickening, consistent with colitis. Nonspecific appearance as regards etiology Ascites, also previously reported Evidence of anasarca, with in addition to the above bilateral pleural effusions, edema subcutaneous fat, and congestion of the mesentery Mild hepatomegaly, also previously reported Right pleural effusion with a thick wall, appearing similar to the previous exam of October 2018. Likely reflects a loculated/organized pleural effusion. Considerable consolidation of much of the right lower lobe. This appears similar to the previous exam. Diffuse groundglass opacity throughout much of the visualized lungs, nonspecific but may reflect pulmonary edema Cardiomegaly Apparent gallbladder wall thickening/edema. Probably an artifact of under distention and manifestation of anasarca. Acute cholecystitis cannot completely excludable, however, and consideration should be given to further workup if there is high clinical suspicion. Apparent bladder wall thickening. Probably an artifact of under distention, unchanged from the prior exam. Cystitis also possible. Other findings as noted, including left hip surgical hardware, extensive arterial calcification KUB noted resolved okay for diet bowel regimen d/c planning (2) Gastrointestinal hemorrhage Assessment & Plan: Patient with possible GI bleed he is noted to have tarry stools. Mucous stools noticed on evaluation loose. No active bleeding identified. Hemoglobin is been stable. CT reviewed patient does have a near pancolitis. No acute surgical intervention at this time. Will monitor with serial abdominal exams Consider GI consultation for procedure/colonoscopy Occult blood stool Trend labs stable no acute bleed d/c planning We will follow with examination IV antibiotics as per PCP or ID Thank you for let me participate patient's care Scope results noted adv diet pending path ppi Sukhjinder Tolbert February 12, 2020 10:38
--- NOTE | 2020-02-12 14:10 | Nephrology Progress Note ---
Assessment/Plan Problem List: (1) ESRD (end stage renal disease) on dialysis (2) Bradyarrhythmia (3) Gastrointestinal hemorrhage (4) Hypertensive kidney disease Assessment 1) ESRD on dialysis, will hold dialysis today and reevaluate for possible dialysis tomorrow February 09 (2) GI bleed, for which the patient was sent to emergency room (3) Abdominal distension (4) Anemia (5) Diabetes mellitus (6) history of bradyarrhythmia (7) hypertensive kidney disease (8) history of CVA Plan COVID-19 test negative C. difficile test negative Dialyzed February 10 Will adjust blood pressure medication Gastrointestinal evaluation, indicative of ischemic colitis Previously: Hold Eliquis due to GI bleed Hold phosphate binders due to low phosphorus level IV Protonix Adjust blood pressure medication with proper parameters Hemodialysis as needed will schedule for tomorrow February 10 2D echocardiogram, ejection fraction 60% Monitor hemoglobin hematocrit Per orders Subjective ROS Limited/Unobtainable: No Constitutional: Reports: malaise, weakness Objective Objective Last 24 Hour Vital Signs Date Time Temp Pulse Resp B/P (MAP) Pulse Ox O2 Delivery O2 Flow Rate FiO2 02/12/20 12:00 97.9 68 19 163/75 (104) 98 02/12/20 09:00 Room Air 02/12/20 08:55 62 144/68 02/12/20 08:55 144/68 02/12/20 08:00 97.8 62 20 144/68 (93) 98 02/12/20 05:29 156/64 02/12/20 04:00 97.3 58 20 156/64 (94) 98 02/12/20 00:04 178/65 02/12/20 00:00 97.7 55 20 178/65 (102) 92 02/11/20 21:23 184/93 02/11/20 21:00 Room Air 02/11/20 20:00 97.9 57 20 183/68 (106) 98 Intake and Output 02/11/20 02/12/20 19:00 07:00 Intake Total 545 ml 1030 ml Output Total 0 ml Balance 545 ml 1030 ml IV Total 545 ml 670 ml Other 360 ml Estimated Blood Loss 0 ml # Voids 1 # Bowel Movements 3 1 Current Medications Medications (Trade) Dose Ordered Sig/Jennifer Route PRN Reason Start Time Stop Time Status Last Admin Dose Admin Acetaminophen (Tylenol) 650 mg Q4H PRN ORAL Mild Pain (Pain Scale 1-3) 02/08/20 21:15 03/09/20 21:14 Azithromycin 500 mg/Sodium Chloride 275 ml @ 275 mls/hr DAILY IV 02/09/20 09:00 02/14/20 08:59 02/12/20 09:00 Dextrose (Dextrose 50%) 25 ml Q30M PRN IV Hypoglycemia 02/08/20 21:15 05/08/20 21:14 Dextrose (Dextrose 50%) 50 ml Q30M PRN IV Hypoglycemia 02/08/20 21:15 05/08/20 21:14 Dextrose/Sodium Chloride 1,000 ml @ 50 mls/hr Q20H IV 02/10/20 14:00 03/11/20 13:59 02/12/20 05:31 Gabapentin (Neurontin) 100 mg THREE TIMES A DAY ORAL 02/09/20 10:00 03/10/20 09:59 02/11/20 17:40 Hydralazine HCl (Apresoline) 25 mg Q4H PRN ORAL bp over 160 syst 02/09/20 11:30 05/09/20 11:29 02/12/20 00:04 Hydralazine HCl (Apresoline) 50 mg EVERY 8 HOURS ORAL 02/09/20 14:00 05/08/20 21:59 02/11/20 21:23 Insulin Aspart (NovoLOG) BEFORE MEALS AND HS SUBQ 02/09/20 06:30 05/09/20 06:29 02/09/20 21:36 Losartan Potassium (Cozaar) 50 mg DAILY ORAL 02/10/20 09:00 03/10/20 08:59 02/10/20 08:22 Metoclopramide HCl (Reglan) 10 mg Q6H PRN IVP Nausea & Vomiting 02/09/20 11:15 03/10/20 11:14 Metronidazole 100 ml @ 100 mls/hr Q8HR IVPB 02/09/20 22:00 02/16/20 21:59 02/12/20 05:31 Nifedipine (Procardia XL) 30 mg DAILY ORAL 02/10/20 09:00 03/10/20 08:59 02/10/20 08:22 Pantoprazole (Protonix) 40 mg EVERY 12 HOURS IVP 02/09/20 11:15 03/10/20 11:14 02/12/20 09:00 Pregabalin (Lyrica) 50 mg BID ORAL 02/09/20 10:00 03/10/20 09:59 02/11/20 17:41 Laboratory Tests 02/12/20 05:45: White Blood Count 7.1, Red Blood Count 3.25L, Hemoglobin 9.8L, Hematocrit 29.6L , Mean Corpuscular Volume 91, Mean Corpuscular Hemoglobin 30.3, Mean Corpuscular Hemoglobin Concent 33.3, Red Cell Distribution Width 14.4, Platelet Count 243, Mean Platelet Volume 6.1L, Neutrophils (%) (Auto) 75.9H, Lymphocytes (%) (Auto) 11.7L, Monocytes (%) (Auto) 8.1, Eosinophils (%) (Auto) 2.1, Basophils (%) (Auto) 2.1H, Sodium Level 140, Potassium Level 3.3L, Chloride Level 102, Carbon Dioxide Level 25, Anion Gap 13, Blood Urea Nitrogen 62H, Creatinine 6.5H, Estimat Glomerular Filtration Rate 9.0, Glucose Level 94, Calcium Level 8.3L, Phosphorus Level 4.4, Magnesium Level 2.6H, Total Bilirubin 1.1H, Direct Bilirubin 0.9H, Aspartate Amino Transf (AST/SGOT) 21, Alanine Aminotransferase (ALT/SGPT) 16, Alkaline Phosphatase 1128H, C-Reactive Protein, Quantitative 4.4H, Pro-B-Type Natriuretic Peptide > 41939G, Total Protein 5.9L, Albumin 2.3L Height (Feet): 5 Height (Inches): 5.00 Weight (Pounds): 135 General Appearance: no apparent distress Cardiovascular: bradycardia Respiratory/Chest: decreased breath sounds Abdomen: soft Objective No change Eliazar Fong MD February 12, 2020 14:10
--- NOTE | 2020-02-12 14:28 | Cardiac Electrophysiology PN ---
Subjective Subjective [id number] Objective Last 24 Hour Vital Signs Date Time Temp Pulse Resp B/P (MAP) Pulse Ox O2 Delivery O2 Flow Rate FiO2 02/12/20 14:06 163/75 02/12/20 12:00 97.9 68 19 163/75 (104) 98 02/12/20 09:00 Room Air 02/12/20 08:55 62 144/68 02/12/20 08:55 144/68 02/12/20 08:00 97.8 62 20 144/68 (93) 98 02/12/20 05:29 156/64 02/12/20 04:00 97.3 58 20 156/64 (94) 98 02/12/20 00:04 178/65 02/12/20 00:00 97.7 55 20 178/65 (102) 92 02/11/20 21:23 184/93 02/11/20 21:00 Room Air 02/11/20 20:00 97.9 57 20 183/68 (106) 98 Intake and Output 02/11/20 02/12/20 19:00 07:00 Intake Total 545 ml 1030 ml Output Total 0 ml Balance 545 ml 1030 ml IV Total 545 ml 670 ml Other 360 ml Estimated Blood Loss 0 ml # Voids 1 # Bowel Movements 3 1 Laboratory Tests Test 02/12/20 05:45 White Blood Count 7.1 K/UL (4.8-10.8) Red Blood Count 3.25 M/UL (4.70-6.10) L Hemoglobin 9.8 G/DL (14.2-18.0) L Hematocrit 29.6 % (42.0-52.0) L Mean Corpuscular Volume 91 FL (80-99) Mean Corpuscular Hemoglobin 30.3 PG (27.0-31.0) Mean Corpuscular Hemoglobin Concent 33.3 G/DL (32.0-36.0) Red Cell Distribution Width 14.4 % (11.6-14.8) Platelet Count 243 K/UL (150-450) Mean Platelet Volume 6.1 FL (6.5-10.1) L Neutrophils (%) (Auto) 75.9 % (45.0-75.0) H Lymphocytes (%) (Auto) 11.7 % (20.0-45.0) L Monocytes (%) (Auto) 8.1 % (1.0-10.0) Eosinophils (%) (Auto) 2.1 % (0.0-3.0) Basophils (%) (Auto) 2.1 % (0.0-2.0) H Sodium Level 140 MMOL/L (136-145) Potassium Level 3.3 MMOL/L (3.5-5.1) L Chloride Level 102 MMOL/L (98-107) Carbon Dioxide Level 25 MMOL/L (21-32) Anion Gap 13 mmol/L (5-15) Blood Urea Nitrogen 62 mg/dL (7-18) H Creatinine 6.5 MG/DL (0.55-1.30) H Estimat Glomerular Filtration Rate 9.0 mL/min (>60) Glucose Level 94 MG/DL (74-106) Calcium Level 8.3 MG/DL (8.5-10.1) L Phosphorus Level 4.4 MG/DL (2.5-4.9) Magnesium Level 2.6 MG/DL (1.8-2.4) H Total Bilirubin 1.1 MG/DL (0.2-1.0) H Direct Bilirubin 0.9 MG/DL (0.0-0.3) H Aspartate Amino Transf (AST/SGOT) 21 U/L (15-37) Alanine Aminotransferase (ALT/SGPT) 16 U/L (12-78) Alkaline Phosphatase 1128 U/L (46-116) H C-Reactive Protein, Quantitative 4.4 mg/dL (0.00-0.90) H Pro-B-Type Natriuretic Peptide > 91245 pg/mL (0-125) H Total Protein 5.9 G/DL (6.4-8.2) L Albumin 2.3 G/DL (3.4-5.0) L Microbiology Date/Time Source Procedure Growth Status 02/09/20 16:00 Stool Clostridium difficile Toxin Assay - Final Complete Isaac Wilburn MD February 12, 2020 14:28
--- NOTE | 2020-02-12 19:25 | NUR ---
HAND-OFF: Report given to Akilah.
--- NOTE | 2020-02-12 20:00 | NUR ---
NURSE NOTES: Patient received in bed, asleep, easily arousable. IV is intact. No signs of acute distress. Noted with high BP, asymptomatic. Will medicate as prescribed. Will continue to monitor.
--- NOTE | 2020-02-12 23:15 | Progress Note ---
DATE: 02/12/2020 SUBJECTIVE: This is a 54-year-old male came with GI bleed and generalized weakness. The patient is currently in bed, feeling weakness. PHYSICAL EXAMINATION: VITAL SIGNS: Blood pressure is 144/68, pulse 62, no fever. CHEST: Bilateral few crackles. CARDIOVASCULAR: Regular rhythm. ABDOMEN: Soft. EXTREMITIES: CCE. NEUROLOGICAL: The patient has generalized weakness. LABORATORY DATA: White count 7.1, hemoglobin 10, hematocrit 30, platelets are 243. Chemistry panel; potassium is 3.3, today we will give potassium replacement. BNP was 53362. ASSESSMENT AND PLAN: 1. CHF. 2. Fluid overload. 3. GI bleed. 4. Rectal bleeding. 5. End-stage renal disease. 6. We will currently continue current treatment. Continue nifedipine, Flagyl, continue Remeron, hydralazine, PPI, Reglan with gabapentin. Consider Cardiology consult for heart failure. Alvaro Ruvalcaba M.D. DR: Pato JOB#: [id number] CC:
[2020-02-13] VITALS: BP 175/68
[2020-02-13] MEDS: HydrALAZINE 25mg tab ORAL PRN (00:34)
--- NOTE | 2020-02-13 00:45 | Consultation ---
DATE OF CONSULTATION: 02/12/2020 CARDIOLOGY CONSULTATION CONSULTING PHYSICIAN: Isaac Wilburn MD. REFERRING PHYSICIAN: Tay Ruvalcaba MD. REASON FOR CONSULTATION: Management of hypertension. HISTORY OF PRESENT ILLNESS: The patient is a 54-year-old intermediate patient with history of hypertension, end-stage renal disease on hemodialysis as well as history of cirrhosis of the liver with ascites with history of paracentesis with prior endoscopy that showed gastritis. The patient had 2.5 L paracentesis in a previous admission. The patient was admitted for GI bleeding. CT of abdomen and pelvis showed evidence of left-sided colitis. The patient underwent EGD and paracentesis on February 11, 2020, and underwent hemodialysis today. Blood pressure is elevated and Cardiology consultation was obtained for further evaluation. REVIEW OF SYSTEMS: Negative other than what was mentioned in history of present illness. PAST MEDICAL HISTORY: As mentioned above. FAMILY HISTORY: Noncontributory. SOCIAL HISTORY: He lives in a intermediate. Does not smoke or drink alcohol. PHYSICAL EXAMINATION: VITAL SIGNS: Show blood pressure of 160/75, pulse 68, respirations 18, temperature 97.9. HEAD AND NECK: Show no JVD. LUNGS: Clear. CARDIOVASCULAR: Shows regular S1 and S2 with no gallop. ABDOMEN: Distended. EXTREMITIES: A 1+ pitting edema. LABORATORY DATA: Labs show white count 7.9, hemoglobin 9.8, hematocrit 29.6, and platelet count 243,000. Sodium 140, potassium 3.3, BUN of 62, creatinine 6.5, and glucose of 90. Troponin is negative. BNP is more than 35,000. ASSESSMENT AND PLAN: 1. Accelerated hypertension. The patient is already on hemodialysis as well as Procardia XL 30 mg b.i.d., Cozaar 50 mg daily, and hydralazine 50 mg every 8 hours. I will increase hydralazine to 100 mg every 8 hours and add p.r.n. clonidine to his medical regimen. 2. End-stage renal disease, on hemodialysis. Further evaluation by Dr. Fong. 3. History of bradyarrhythmia. 4. GI bleed, abdominal distention, cirrhosis. It is of note that the patient's COVID-19 test was negative and C. difficile was also negative. At this time, we will hold Eliquis due to GI bleed. The patient's ejection fraction was 60% and currently on IV Protonix. Thank you very much for allowing me to participate in the care of this patient. Please do not hesitate to contact me for any questions regarding my evaluation. Isaac Wilburn M.D. DR: [place] JOB#: [id number] CC:
[2020-02-13 04:00] VITALS: BP 168/67
[2020-02-13] MEDS: HydrALAZINE 50mg tab ORAL SCH ×3 (05:03→22:30)
[2020-02-13] MEDS: NovoLOG Insulin Flexpen SUBQ SCH ×4 (05:53→21:00)
--- NOTE | 2020-02-13 06:50 | General Progress Note ---
Assessment/Plan Problem List: (1) Hypertensive kidney disease ICD Codes: I12.9 - Hypertensive chronic kidney disease with stage 1 through stage 4 chronic kidney disease, or unspecified chronic kidney disease SNOMED: 25598463 (2) Gastrointestinal hemorrhage ICD Codes: K92.2 - Gastrointestinal hemorrhage, unspecified SNOMED: 96269733 (3) ESRD (end stage renal disease) on dialysis ICD Codes: N18.6 - End stage renal disease; Z99.2 - Dependence on renal dialysis SNOMED: 464014379 (4) Anemia ICD Codes: D64.9 - Anemia, unspecified SNOMED: 737383016 (5) Diabetes mellitus ICD Codes: E11.9 - Type 2 diabetes mellitus without complications SNOMED: 94739469 (6) Cirrhosis ICD Codes: K74.60 - Unspecified cirrhosis of liver SNOMED: 91202327 (7) Ascites ICD Codes: R18.8 - Other ascites SNOMED: 564691902 (8) Ischemic colitis ICD Codes: K55.9 - Vascular disorder of intestine, unspecified SNOMED: 82993530 Assessment/Plan: s/p EGD and colonoscopy SUMMARY OF FINDINGS: 1. Gastritis, status post biopsy. 2. Significant ischemic colitis in the sigmoid area status post biopsy. 3. Internal hemorrhoids. s/p paracentesis fu path on diet abx will fu Subjective ROS Limited/Unobtainable: No Allergies: Coded Allergies: No Known Allergies (Unverified , 10/28/18) Objective Last 24 Hour Vital Signs Date Time Temp Pulse Resp B/P (MAP) Pulse Ox O2 Delivery O2 Flow Rate FiO2 02/13/20 05:03 168/67 02/13/20 04:00 97.9 62 20 168/67 (100) 96 02/13/20 00:34 175/68 02/13/20 00:00 98.4 60 20 175/68 (103) 95 02/12/20 21:02 184/67 02/12/20 21:00 Room Air 02/12/20 20:00 98.2 62 20 184/67 (106) 97 02/12/20 18:30 166/88 (114) 02/12/20 17:19 61 175/85 02/12/20 17:19 175/85 02/12/20 16:00 96.8 61 18 175/85 (115) 97 02/12/20 14:06 163/75 02/12/20 12:00 97.9 68 19 163/75 (104) 98 02/12/20 09:00 Room Air 02/12/20 08:55 62 144/68 02/12/20 08:55 144/68 02/12/20 08:00 97.8 62 20 144/68 (93) 98 Intake and Output 02/12/20 02/13/20 19:00 07:00 Intake Total 240 ml 100 ml Output Total 6000 ml Balance -5760 ml 100 ml Intake Oral 240 ml IV Total 100 ml Hemodialysis UF 6000 ml Height (Feet): 5 Height (Inches): 5.00 Weight (Pounds): 133 General Appearance: no apparent distress EENT: normal ENT inspection Neck: supple Cardiovascular: normal rate Respiratory/Chest: decreased breath sounds Abdomen: normal bowel sounds, non tender, soft Extremities: non-tender Dannie Don MD February 13, 2020 06:50
[2020-02-13 07:08] LABS: BASOPHILS % (AUTO) 0.9 % (0.0-2.0); EOSINOPHILS % (AUTO) 1.4 % (0.0-3.0); HEMOGLOBIN 9.7 G/DL (14.2-18.0); LYMPHOCYTES % (AUTO) 15.3 % (20.0-45.0); MEAN CORPUSCULAR VOLUME 91 FL (80-99); MONOCYTES % (AUTO) 7.3 % (1.0-10.0); NEUTROPHILS % (AUTO) 75.1 % (45.0-75.0); PLATELET COUNT 238 K/UL (150-450); RED BLOOD COUNT 3.18 M/UL (4.70-6.10); WHITE BLOOD COUNT 9.2 K/UL (4.8-10.8)
--- NOTE | 2020-02-13 07:19 | NUR ---
HAND-OFF: Report given to Claudia STONE.
--- NOTE | 2020-02-13 07:35 | NUR ---
NURSE NOTES: Received report from CHASE Isbell. Patient sleeping. On room air, no signs of distress or labored breathing. IV intact, patent, and saline locked. Bed in lowest position with call light in reach. Will continue with plan of care.
[2020-02-13 08:00] VITALS: BP 123/60
[2020-02-13 08:03] LABS: ALANINE AMINOTRANSFERASE 29 U/L (12-78); ALBUMIN 2.2 G/DL (3.4-5.0); ALBUMIN/GLOBULIN RATIO 0.5 (1.0-2.7); ALKALINE PHOSPHATASE 1168 U/L (46-116); ANION GAP 10 mmol/L (5-15); ASPARTATE AMINO TRANSFERASE 27 U/L (15-37); BILIRUBIN,TOTAL 1.1 MG/DL (0.2-1.0); BLOOD UREA NITROGEN 34 mg/dL (7-18); CALCIUM 7.3 MG/DL (8.5-10.1); CARBON DIOXIDE 30 MMOL/L (21-32); CHLORIDE 101 MMOL/L (98-107); CREATININE 4.9 MG/DL (0.55-1.30); PHOSPHORUS 3.3 MG/DL (2.5-4.9); POTASSIUM 3.3 MMOL/L (3.5-5.1); SODIUM 140 MMOL/L (136-145)
[2020-02-13 08:05] LABS: BILIRUBIN,DIRECT 0.8 MG/DL (0.0-0.3)
[2020-02-13] MEDS: Azithromycin 500 MG in NS 275 ML IV SCH (09:44)
[2020-02-13] MEDS: Pantoprazole Inj IVP SCH ×2 (09:44→22:30)
[2020-02-13] MEDS: Lyrica 50mg cap ORAL SCH ×2 (09:45→17:55)
[2020-02-13] MEDS: Losartan 50mg tab ORAL SCH (09:45)
--- NOTE | 2020-02-13 11:07 | Nephrology Progress Note ---
Assessment/Plan Problem List: (1) ESRD (end stage renal disease) on dialysis (2) Bradyarrhythmia (3) Gastrointestinal hemorrhage (4) Hypertensive kidney disease Assessment 1) ESRD on dialysis, will hold dialysis today and reevaluate for possible dialysis tomorrow February 09 (2) GI bleed, for which the patient was sent to emergency room (3) Abdominal distension (4) Anemia (5) Diabetes mellitus (6) history of bradyarrhythmia (7) hypertensive kidney disease (8) history of CVA Plan COVID-19 test negative C. difficile test negative Dialyzed February 10 Will adjust blood pressure medication Gastrointestinal evaluation, indicative of ischemic colitis Previously: Hold Eliquis due to GI bleed Hold phosphate binders due to low phosphorus level IV Protonix Adjust blood pressure medication with proper parameters Hemodialysis as needed will schedule for tomorrow February 10 2D echocardiogram, ejection fraction 60% Monitor hemoglobin hematocrit Per orders Subjective ROS Limited/Unobtainable: No Constitutional: Reports: malaise Objective Objective Last 24 Hour Vital Signs Date Time Temp Pulse Resp B/P (MAP) Pulse Ox O2 Delivery O2 Flow Rate FiO2 02/13/20 09:46 61 123/60 02/13/20 09:45 123/60 02/13/20 08:00 97.9 61 20 123/60 (81) 100 02/13/20 05:03 168/67 02/13/20 04:00 97.9 62 20 168/67 (100) 96 02/13/20 00:34 175/68 02/13/20 00:00 98.4 60 20 175/68 (103) 95 02/12/20 21:02 184/67 02/12/20 21:00 Room Air 02/12/20 20:00 98.2 62 20 184/67 (106) 97 02/12/20 18:30 166/88 (114) 02/12/20 17:19 61 175/85 02/12/20 17:19 175/85 02/12/20 16:00 96.8 61 18 175/85 (115) 97 02/12/20 14:06 163/75 02/12/20 12:00 97.9 68 19 163/75 (104) 98 Intake and Output 02/12/20 02/13/20 19:00 07:00 Intake Total 240 ml 340 ml Output Total 6000 ml Balance -5760 ml 340 ml Intake Oral 240 ml IV Total 100 ml Other 240 ml Hemodialysis UF 6000 ml Laboratory Tests 02/13/20 05:35: White Blood Count 9.2, Red Blood Count 3.18L, Hemoglobin 9.7L, Hematocrit 29.0L , Mean Corpuscular Volume 91, Mean Corpuscular Hemoglobin 30.4, Mean Corpuscular Hemoglobin Concent 33.3, Red Cell Distribution Width 14.0, Platelet Count 238, Mean Platelet Volume 5.8L, Neutrophils (%) (Auto) 75.1H, Lymphocytes (%) (Auto) 15.3L, Monocytes (%) (Auto) 7.3, Eosinophils (%) (Auto) 1.4, Basophils (%) (Auto) 0.9, Sodium Level 140, Potassium Level 3.3L, Chloride Level 101, Carbon Dioxide Level 30, Anion Gap 10, Blood Urea Nitrogen 34H, Creatinine 4.9H, Estimat Glomerular Filtration Rate 12.4, Glucose Level 121H, Uric Acid 4.8, Calcium Level 7.3L, Phosphorus Level 3.3, Magnesium Level 2.2, Total Bilirubin 1.1H, Direct Bilirubin 0.8H, Aspartate Amino Transf (AST/SGOT) 27, Alanine Aminotransferase (ALT/SGPT) 29, Alkaline Phosphatase 1168H, Total Protein 6.3L, Albumin 2.2L, Globulin 4.1, Albumin/Globulin Ratio 0.5L Height (Feet): 5 Height (Inches): 5.00 Weight (Pounds): 133 General Appearance: no apparent distress Cardiovascular: normal rate Respiratory/Chest: decreased breath sounds Abdomen: soft Objective No change Eliazar Fong MD February 13, 2020 11:07
[2020-02-13 12:30] VITALS: BP 112/56
[2020-02-13 16:00] VITALS: BP 128/62
--- NOTE | 2020-02-13 19:42 | NUR ---
HAND-OFF: Report given to CHASE Sam and CHASE Coppola.
[2020-02-13 20:48] VITALS: BP 127/65
--- NOTE | 2020-02-13 20:59 | NUR ---
NURSE NOTES: Pt is in bed, awake and alert. Vitals stable. Pt will be repositioned frequently. Pt is a HD patient. Fall precaution in place. Bed alarm on. bed locked low in position,side rails up and call light within reach. Pt will be monitored.
--- NOTE | 2020-02-13 21:40 | Surgery Progress Note ---
Surgery Progress Note Subjective Additional Comments no acute events labs noted pending path comfortable Objective Last 24 Hour Vital Signs Date Time Temp Pulse Resp B/P (MAP) Pulse Ox O2 Delivery O2 Flow Rate FiO2 02/13/20 20:48 99.0 62 17 127/65 (85) 95 02/13/20 17:55 60 128/62 02/13/20 16:00 98.8 60 18 128/62 (84) 95 02/13/20 13:33 112/56 02/13/20 12:30 97.8 63 19 112/56 (74) 98 02/13/20 09:46 61 123/60 02/13/20 09:45 123/60 02/13/20 09:00 Room Air 02/13/20 08:00 97.9 61 20 123/60 (81) 100 02/13/20 05:03 168/67 02/13/20 04:00 97.9 62 20 168/67 (100) 96 02/13/20 00:34 175/68 02/13/20 00:00 98.4 60 20 175/68 (103) 95 I&O Intake and Output 02/12/20 02/13/20 19:00 07:00 Intake Total 240 ml 340 ml Output Total 6000 ml Balance -5760 ml 340 ml Intake Oral 240 ml IV Total 100 ml Other 240 ml Hemodialysis UF 6000 ml Cardiovascular: RSR Respiratory: decreased breath sounds Abdomen: soft, non-tender, present bowel sounds, non-distended Extremities: no tenderness, no cyanosis Laboratory Tests Test 02/13/20 05:35 White Blood Count 9.2 K/UL (4.8-10.8) Red Blood Count 3.18 M/UL (4.70-6.10) L Hemoglobin 9.7 G/DL (14.2-18.0) L Hematocrit 29.0 % (42.0-52.0) L Mean Corpuscular Volume 91 FL (80-99) Mean Corpuscular Hemoglobin 30.4 PG (27.0-31.0) Mean Corpuscular Hemoglobin Concent 33.3 G/DL (32.0-36.0) Red Cell Distribution Width 14.0 % (11.6-14.8) Platelet Count 238 K/UL (150-450) Mean Platelet Volume 5.8 FL (6.5-10.1) L Neutrophils (%) (Auto) 75.1 % (45.0-75.0) H Lymphocytes (%) (Auto) 15.3 % (20.0-45.0) L Monocytes (%) (Auto) 7.3 % (1.0-10.0) Eosinophils (%) (Auto) 1.4 % (0.0-3.0) Basophils (%) (Auto) 0.9 % (0.0-2.0) Sodium Level 140 MMOL/L (136-145) Potassium Level 3.3 MMOL/L (3.5-5.1) L Chloride Level 101 MMOL/L (98-107) Carbon Dioxide Level 30 MMOL/L (21-32) Anion Gap 10 mmol/L (5-15) Blood Urea Nitrogen 34 mg/dL (7-18) H Creatinine 4.9 MG/DL (0.55-1.30) H Estimat Glomerular Filtration Rate 12.4 mL/min (>60) Glucose Level 121 MG/DL (74-106) H Uric Acid 4.8 MG/DL (2.6-7.2) Calcium Level 7.3 MG/DL (8.5-10.1) L Phosphorus Level 3.3 MG/DL (2.5-4.9) Magnesium Level 2.2 MG/DL (1.8-2.4) Total Bilirubin 1.1 MG/DL (0.2-1.0) H Direct Bilirubin 0.8 MG/DL (0.0-0.3) H Aspartate Amino Transf (AST/SGOT) 27 U/L (15-37) Alanine Aminotransferase (ALT/SGPT) 29 U/L (12-78) Alkaline Phosphatase 1168 U/L (46-116) H Total Protein 6.3 G/DL (6.4-8.2) L Albumin 2.2 G/DL (3.4-5.0) L Globulin 4.1 g/dL Albumin/Globulin Ratio 0.5 (1.0-2.7) L Plan Problems: (1) Abdominal distension Assessment & Plan: The appendix is normal. The proximal colon is upper limits of normal caliber, gas and stool-filled. There is a small to moderate amount of ascites fluid. There is congestion of the mesenteric fat. Small bowel loops are somewhat prominent in caliber, and a few may demonstrate slight wall thickening. The distal esophagus, stomach, duodenum are unremarkable. No free intraperitoneal gas. No bowel wall pneumatosis. The colon wall thickening is markedly increased from that reported previously. The lack of IV contrast limits assessment of the solid organs. The liver appears somewhat enlarged. No definite focal abnormality. It is normal in attenuation. The gallbladder is nondistended. The wall appears edematous. No radiopaque gallstones. No biliary ductal dilatation. The pancreas is atrophic. The spleen is grossly normal. The kidneys are grossly unremarkable. No renal or ureteral calculi, hydronephrosis, or hydroureter. Bladder is nondistended. Again demonstrated is mild bladder wall thickening, similar in extent to the previous study. Again demonstrated is left hip surgical hardware. There is diffuse edema of the subcutaneous fat. This is slightly less extensive than on the prior study. Again demonstrated is what appears to be a loculated thick rimmed right pleural effusion. Atelectatic or consolidated lung is demonstrated in the right lower lobe. Groundglass opacities throughout the aerated portions of both lungs appear very similar to the prior exam. There is trace left pleural fluid as well. The heart is enlarged. There are extensive arterial calcifications. Impression: Marked rectal, descending and sigmoid colon wall thickening, consistent with colitis. Nonspecific appearance as regards etiology Ascites, also previously reported Evidence of anasarca, with in addition to the above bilateral pleural effusions, edema subcutaneous fat, and congestion of the mesentery Mild hepatomegaly, also previously reported Right pleural effusion with a thick wall, appearing similar to the previous exam of October 2018. Likely reflects a loculated/organized pleural effusion. Considerable consolidation of much of the right lower lobe. This appears similar to the previous exam. Diffuse groundglass opacity throughout much of the visualized lungs, nonspecific but may reflect pulmonary edema Cardiomegaly Apparent gallbladder wall thickening/edema. Probably an artifact of under distention and manifestation of anasarca. Acute cholecystitis cannot completely excludable, however, and consideration should be given to further workup if there is high clinical suspicion. Apparent bladder wall thickening. Probably an artifact of under distention, unchanged from the prior exam. Cystitis also possible. Other findings as noted, including left hip surgical hardware, extensive arterial calcification KUB noted resolved okay for diet bowel regimen d/c planning (2) Gastrointestinal hemorrhage Assessment & Plan: Patient with possible GI bleed he is noted to have tarry stools. Mucous stools noticed on evaluation loose. No active bleeding identified. Hemoglobin is been stable. CT reviewed patient does have a near pancolitis. No acute surgical intervention at this time. Will monitor with serial abdominal exams Consider GI consultation for procedure/colonoscopy Occult blood stool Trend labs stable no acute bleed d/c planning We will follow with examination IV antibiotics as per PCP or ID Thank you for let me participate patient's care Scope results noted adv diet pending path ppi Sukhjinder Tolbert February 13, 2020 21:40
[2020-02-14] VITALS: BP 122/65
--- NOTE | 2020-02-14 01:44 | Progress Note ---
DATE: 02/13/2020 SUBJECTIVE: A 54-year-old male came with the rectal bleeding, generalized weakness, and slightly nausea and vomiting. Patient is currently in bed. Nausea and vomiting improved. PHYSICAL EXAMINATION: VITAL SIGNS: Stable. CHEST: Bilaterally decreased breath sounds. CARDIOVASCULAR: Regular rhythm. No gallop. No murmur. ABDOMEN: Soft. EXTREMITIES: CCE. ASSESSMENT AND PLAN: 1. GI bleed. 2. Rule out COVID. 3. Hypertension. 4. End-stage renal disease. 5. History of borderline diabetes. We will currently continue current treatment. Continue hemodialysis. Waiting for COVID test. Nephrology and Pulmonary are on case. Alvaro Ruvalcaba M.D. DR: CURT[place] JOB#: [id number] CC:
[2020-02-14 04:32] VITALS: BP 176/66
--- NOTE | 2020-02-14 05:00 | NUR ---
NURSE NOTES: Pt is in bed, awake. Pt is given a bed bath, pt repositioned. No acute distress noted.
[2020-02-14] MEDS: NovoLOG Insulin Flexpen SUBQ SCH ×3 (05:41→16:30)
[2020-02-14] MEDS: HydrALAZINE 50mg tab ORAL SCH ×2 (05:42→13:59)
--- NOTE | 2020-02-14 07:25 | NUR ---
HAND-OFF: Report given to Lamin Herndon RN.
--- NOTE | 2020-02-14 07:25 | NUR ---
NURSE NOTES: Received patient in bed. Awake, A/O x3. On room air. Patient denies pain at this time. IV in the Right AC, site is intact. Left upper arm dialysis site intact. Bed low and locked, call light within reach.
[2020-02-14 07:56] LABS: BASOPHILS % (AUTO) 0.8 % (0.0-2.0); EOSINOPHILS % (AUTO) 2.5 % (0.0-3.0); HEMATOCRIT 29.3 % (42.0-52.0); HEMOGLOBIN 9.7 G/DL (14.2-18.0); LYMPHOCYTES % (AUTO) 14.3 % (20.0-45.0); MEAN CORPUSCULAR VOLUME 92 FL (80-99); MONOCYTES % (AUTO) 7.9 % (1.0-10.0); NEUTROPHILS % (AUTO) 74.6 % (45.0-75.0); PLATELET COUNT 227 K/UL (150-450); RED BLOOD COUNT 3.18 M/UL (4.70-6.10); RED CELL DISTRIBUTION WIDTH 13.9 % (11.6-14.8); WHITE BLOOD COUNT 8.2 K/UL (4.8-10.8)
[2020-02-14 08:00] VITALS: BP 121/66
[2020-02-14 08:12] LABS: ANION GAP 9 mmol/L (5-15); BLOOD UREA NITROGEN 46 mg/dL (7-18); CALCIUM 7.8 MG/DL (8.5-10.1); CARBON DIOXIDE 28 MMOL/L (21-32); CHLORIDE 100 MMOL/L (98-107); CREATININE 5.7 MG/DL (0.55-1.30); POTASSIUM 3.7 MMOL/L (3.5-5.1); SODIUM 137 MMOL/L (136-145)
[2020-02-14 08:28] LABS: ALANINE AMINOTRANSFERASE 20 U/L (12-78); ALBUMIN 2.3 G/DL (3.4-5.0); ALKALINE PHOSPHATASE 1075 U/L (46-116); ASPARTATE AMINO TRANSFERASE 19 U/L (15-37); BILIRUBIN,DIRECT 0.8 MG/DL (0.0-0.3); PHOSPHORUS 4.6 MG/DL (2.5-4.9)
[2020-02-14] MEDS: Pantoprazole Inj IVP SCH (09:12)
[2020-02-14] MEDS: Losartan 50mg tab ORAL SCH (09:12)
[2020-02-14] MEDS: Lyrica 50mg cap ORAL SCH ×2 (09:13→17:23)
--- NOTE | 2020-02-14 10:19 | General Progress Note ---
Assessment/Plan Problem List: (1) Hypertensive kidney disease ICD Codes: I12.9 - Hypertensive chronic kidney disease with stage 1 through stage 4 chronic kidney disease, or unspecified chronic kidney disease SNOMED: 01793703 (2) Gastrointestinal hemorrhage ICD Codes: K92.2 - Gastrointestinal hemorrhage, unspecified SNOMED: 73101513 (3) ESRD (end stage renal disease) on dialysis ICD Codes: N18.6 - End stage renal disease; Z99.2 - Dependence on renal dialysis SNOMED: 874286949 (4) Anemia ICD Codes: D64.9 - Anemia, unspecified SNOMED: 639260388 (5) Diabetes mellitus ICD Codes: E11.9 - Type 2 diabetes mellitus without complications SNOMED: 41850693 (6) Cirrhosis ICD Codes: K74.60 - Unspecified cirrhosis of liver SNOMED: 43011058 (7) Ascites ICD Codes: R18.8 - Other ascites SNOMED: 664945504 (8) Ischemic colitis ICD Codes: K55.9 - Vascular disorder of intestine, unspecified SNOMED: 73830596 Assessment/Plan: s/p EGD and colonoscopy SUMMARY OF FINDINGS: 1. Gastritis, status post biopsy. 2. Significant ischemic colitis in the sigmoid area status post biopsy. 3. Internal hemorrhoids. s/p paracentesis fu path on diet abx will fu Subjective ROS Limited/Unobtainable: No Allergies: Coded Allergies: No Known Allergies (Unverified , 10/28/18) Objective Last 24 Hour Vital Signs Date Time Temp Pulse Resp B/P (MAP) Pulse Ox O2 Delivery O2 Flow Rate FiO2 02/14/20 09:13 64 121/66 02/14/20 09:12 121/66 02/14/20 08:00 98.8 64 19 121/66 (84) 99 02/14/20 05:42 176/66 02/14/20 04:32 97.7 65 17 176/66 (102) 95 02/14/20 00:00 98.9 62 18 122/65 (84) 95 02/13/20 22:30 127/65 02/13/20 21:00 Room Air 02/13/20 20:48 99.0 62 17 127/65 (85) 95 02/13/20 17:55 60 128/62 02/13/20 16:00 98.8 60 18 128/62 (84) 95 02/13/20 13:33 112/56 02/13/20 12:30 97.8 63 19 112/56 (74) 98 Intake and Output 02/13/20 02/14/20 19:00 07:00 Intake Total 120 ml Balance 120 ml Intake Oral 120 ml Laboratory Tests 02/14/20 07:30: White Blood Count 8.2, Red Blood Count 3.18L, Hemoglobin 9.7L, Hematocrit 29.3L , Mean Corpuscular Volume 92, Mean Corpuscular Hemoglobin 30.4, Mean Corpuscular Hemoglobin Concent 33.1, Red Cell Distribution Width 13.9, Platelet Count 227, Mean Platelet Volume 5.8L, Neutrophils (%) (Auto) 74.6, Lymphocytes ( %) (Auto) 14.3L, Monocytes (%) (Auto) 7.9, Eosinophils (%) (Auto) 2.5, Basophils (%) (Auto) 0.8, Sodium Level 137, Potassium Level 3.7, Chloride Level 100, Carbon Dioxide Level 28, Anion Gap 9, Blood Urea Nitrogen 46H, Creatinine 5.7H, Estimat Glomerular Filtration Rate 10.4, Glucose Level 111H, Lactic Acid Level < 0.30L, Calcium Level 7.8L, Phosphorus Level 4.6, Magnesium Level 2.3, Total Bilirubin 1.0, Direct Bilirubin 0.8H, Aspartate Amino Transf (AST/SGOT) 19 , Alanine Aminotransferase (ALT/SGPT) 20, Alkaline Phosphatase 1075H, C- Reactive Protein, Quantitative 3.0H, Total Protein 6.3L, Albumin 2.3L Height (Feet): 5 Height (Inches): 5.00 Weight (Pounds): 135 General Appearance: no apparent distress EENT: PERRL/EOMI Neck: supple Cardiovascular: normal rate Respiratory/Chest: decreased breath sounds Abdomen: normal bowel sounds, non tender, soft Extremities: non-tender Dannie Don MD February 14, 2020 10:19
--- NOTE | 2020-02-14 10:23 | Nephrology Progress Note ---
Assessment/Plan Problem List: (1) ESRD (end stage renal disease) on dialysis (2) Bradyarrhythmia (3) Gastrointestinal hemorrhage (4) Hypertensive kidney disease Assessment 1) ESRD on dialysis, will hold dialysis today and reevaluate for possible dialysis tomorrow February 09 (2) GI bleed, for which the patient was sent to emergency room (3) Abdominal distension (4) Anemia (5) Diabetes mellitus (6) history of bradyarrhythmia (7) hypertensive kidney disease (8) history of CVA Plan COVID-19 test negative C. difficile test negative Dialyzed February 10, next dialysis February 13 Will adjust blood pressure medication Gastrointestinal evaluation, indicative of ischemic colitis Previously: Hold Eliquis due to GI bleed Hold phosphate binders due to low phosphorus level IV Protonix Adjust blood pressure medication with proper parameters Hemodialysis as needed will schedule for tomorrow February 10 2D echocardiogram, ejection fraction 60% Monitor hemoglobin hematocrit Per orders Subjective ROS Limited/Unobtainable: No Constitutional: Reports: malaise Objective Objective Last 24 Hour Vital Signs Date Time Temp Pulse Resp B/P (MAP) Pulse Ox O2 Delivery O2 Flow Rate FiO2 02/14/20 09:13 64 121/66 02/14/20 09:12 121/66 02/14/20 08:00 98.8 64 19 121/66 (84) 99 02/14/20 05:42 176/66 02/14/20 04:32 97.7 65 17 176/66 (102) 95 02/14/20 00:00 98.9 62 18 122/65 (84) 95 02/13/20 22:30 127/65 02/13/20 21:00 Room Air 02/13/20 20:48 99.0 62 17 127/65 (85) 95 02/13/20 17:55 60 128/62 02/13/20 16:00 98.8 60 18 128/62 (84) 95 02/13/20 13:33 112/56 02/13/20 12:30 97.8 63 19 112/56 (74) 98 Intake and Output 02/13/20 02/14/20 19:00 07:00 Intake Total 120 ml Balance 120 ml Intake Oral 120 ml Laboratory Tests 02/14/20 07:30: White Blood Count 8.2, Red Blood Count 3.18L, Hemoglobin 9.7L, Hematocrit 29.3L , Mean Corpuscular Volume 92, Mean Corpuscular Hemoglobin 30.4, Mean Corpuscular Hemoglobin Concent 33.1, Red Cell Distribution Width 13.9, Platelet Count 227, Mean Platelet Volume 5.8L, Neutrophils (%) (Auto) 74.6, Lymphocytes ( %) (Auto) 14.3L, Monocytes (%) (Auto) 7.9, Eosinophils (%) (Auto) 2.5, Basophils (%) (Auto) 0.8, Sodium Level 137, Potassium Level 3.7, Chloride Level 100, Carbon Dioxide Level 28, Anion Gap 9, Blood Urea Nitrogen 46H, Creatinine 5.7H, Estimat Glomerular Filtration Rate 10.4, Glucose Level 111H, Lactic Acid Level < 0.30L, Calcium Level 7.8L, Phosphorus Level 4.6, Magnesium Level 2.3, Total Bilirubin 1.0, Direct Bilirubin 0.8H, Aspartate Amino Transf (AST/SGOT) 19 , Alanine Aminotransferase (ALT/SGPT) 20, Alkaline Phosphatase 1075H, C- Reactive Protein, Quantitative 3.0H, Total Protein 6.3L, Albumin 2.3L Height (Feet): 5 Height (Inches): 5.00 Weight (Pounds): 135 General Appearance: no apparent distress Cardiovascular: normal rate Respiratory/Chest: lungs clear Objective No change Eliazar Fong MD February 14, 2020 10:23
--- NOTE | 2020-02-14 10:44 | Progress Note ---
DATE: 02/11/2020 HISTORY OF PRESENT ILLNESS: This is an elderly male currently in the bed and comfortable, no distress and feeling generalized weakness. PHYSICAL EXAMINATION: VITAL SIGNS: Blood pressure is 140/90, pulse 94, respirations 18, temperature is no fever. HEENT: NAD. CHEST: Bilaterally clear. CARDIOVASCULAR: Regular rhythm. ABDOMEN: Soft. Positive bowel sounds and nontender. EXTREMITIES: CCE. NEUROLOGICAL: No focal deficit. ASSESSMENT AND PLAN: 1. GI bleed. 2. Anemia. 3. End-stage renal disease. 4. Hypertension. 5. UTI. ID is on consult. Continue antibiotics and continue hemodialysis. Alvaro Ruvalcaba M.D. DR: Pato JOB#: [id number] CC:
[2020-02-14 12:00] VITALS: BP 115/68
--- NOTE | 2020-02-14 13:50 | Cardiac Electrophysiology PN ---
Assessment/Plan Assessment/Plan 1. Accelerated hypertension. The patient is already on hemodialysis as well as Procardia XL 30 mg b.i.d., Cozaar 50 mg daily, and hydralazine 100 mg every 8 hours and p.r.n. clonidine to his medical regimen. 2. End-stage renal disease, on hemodialysis. by Dr. Fong. 3. History of bradyarrhythmia. 4. GI bleed, abdominal distention, cirrhosis. It is of note that the patient's COVID-19 test was negative and C. difficile was also negative. At this time, we will hold Eliquis due to GI bleed. The patient's ejection fraction was 60% and currently on IV Protonix. Subjective Subjective Laying flat in isolation off oxygen Objective Last 24 Hour Vital Signs Date Time Temp Pulse Resp B/P (MAP) Pulse Ox O2 Delivery O2 Flow Rate FiO2 02/14/20 12:00 98.0 67 17 115/68 (84) 98 02/14/20 09:13 64 121/66 02/14/20 09:12 121/66 02/14/20 09:00 Room Air 02/14/20 08:00 98.8 64 19 121/66 (84) 99 02/14/20 05:42 176/66 02/14/20 04:32 97.7 65 17 176/66 (102) 95 02/14/20 00:00 98.9 62 18 122/65 (84) 95 02/13/20 22:30 127/65 02/13/20 21:00 Room Air 02/13/20 20:48 99.0 62 17 127/65 (85) 95 02/13/20 17:55 60 128/62 02/13/20 16:00 98.8 60 18 128/62 (84) 95 Intake and Output 02/13/20 02/14/20 19:00 07:00 Intake Total 120 ml Balance 120 ml Intake Oral 120 ml Laboratory Tests Test 02/14/20 07:30 White Blood Count 8.2 K/UL (4.8-10.8) Red Blood Count 3.18 M/UL (4.70-6.10) L Hemoglobin 9.7 G/DL (14.2-18.0) L Hematocrit 29.3 % (42.0-52.0) L Mean Corpuscular Volume 92 FL (80-99) Mean Corpuscular Hemoglobin 30.4 PG (27.0-31.0) Mean Corpuscular Hemoglobin Concent 33.1 G/DL (32.0-36.0) Red Cell Distribution Width 13.9 % (11.6-14.8) Platelet Count 227 K/UL (150-450) Mean Platelet Volume 5.8 FL (6.5-10.1) L Neutrophils (%) (Auto) 74.6 % (45.0-75.0) Lymphocytes (%) (Auto) 14.3 % (20.0-45.0) L Monocytes (%) (Auto) 7.9 % (1.0-10.0) Eosinophils (%) (Auto) 2.5 % (0.0-3.0) Basophils (%) (Auto) 0.8 % (0.0-2.0) Sodium Level 137 MMOL/L (136-145) Potassium Level 3.7 MMOL/L (3.5-5.1) Chloride Level 100 MMOL/L (98-107) Carbon Dioxide Level 28 MMOL/L (21-32) Anion Gap 9 mmol/L (5-15) Blood Urea Nitrogen 46 mg/dL (7-18) H Creatinine 5.7 MG/DL (0.55-1.30) H Estimat Glomerular Filtration Rate 10.4 mL/min (>60) Glucose Level 111 MG/DL (74-106) H Lactic Acid Level < 0.30 mmol/L (0.4-2.0) L Calcium Level 7.8 MG/DL (8.5-10.1) L Phosphorus Level 4.6 MG/DL (2.5-4.9) Magnesium Level 2.3 MG/DL (1.8-2.4) Total Bilirubin 1.0 MG/DL (0.2-1.0) Direct Bilirubin 0.8 MG/DL (0.0-0.3) H Aspartate Amino Transf (AST/SGOT) 19 U/L (15-37) Alanine Aminotransferase (ALT/SGPT) 20 U/L (12-78) Alkaline Phosphatase 1075 U/L (46-116) H C-Reactive Protein, Quantitative 3.0 mg/dL (0.00-0.90) H Total Protein 6.3 G/DL (6.4-8.2) L Albumin 2.3 G/DL (3.4-5.0) L Objective HEAD AND NECK: Show no JVD. LUNGS: Clear. CARDIOVASCULAR: Shows regular S1 and S2 with no gallop. ABDOMEN: Distended. EXTREMITIES: A 1+ pitting edema. Isaac Wilburn MD February 14, 2020 13:50
--- NOTE | 2020-02-14 14:05 | NUR ---
CASE MANAGEMENT:REVIEW 02/14/20 SI:S/P PARACENTESIS~~ YIELD 2L S/P EDG WITH BIOPSY + COLONOSCOPY ~~FINDING: ISCHEMIC COLITIS GI HEMORRHAGE . ESRD ON HD MWF . UTI + PROVIDENCIA RETTGERI . 98.8 64 19 121/66 99% ON RA H/H 9.7/29.3 LACTIC ACID <0.3 CA+7.8 ALKP 1075 IS: IV FLAGYL TID NEURONTIN PO TID HYDRALAZINE PO TID IV PROTONIX BID LYRICA PO BID PROCARDIA XL PO BID IV PROTONIX BID COZAAR PO QD \: 4E MED SURG UNIT DCP: [facility] WHEN STABLE PLAN: DC PLANNING HD TODAY PATHOLOGY REPORTS TO BE REVIEWED BY GI FOR DISCHARGE
--- NOTE | 2020-02-14 14:25 | NUR ---
NURSE NOTES: Received order, ok for discharge by Dr. Don
--- NOTE | 2020-02-14 15:05 | Surgery Progress Note ---
Surgery Progress Note Subjective Additional Comments path noted wbc stable h/h stable abd exam benign currently no n/v/f/c no pain Objective Last 24 Hour Vital Signs Date Time Temp Pulse Resp B/P (MAP) Pulse Ox O2 Delivery O2 Flow Rate FiO2 02/14/20 13:59 115/68 02/14/20 12:00 98.0 67 17 115/68 (84) 98 02/14/20 09:13 64 121/66 02/14/20 09:12 121/66 02/14/20 09:00 Room Air 02/14/20 08:00 98.8 64 19 121/66 (84) 99 02/14/20 05:42 176/66 02/14/20 04:32 97.7 65 17 176/66 (102) 95 02/14/20 00:00 98.9 62 18 122/65 (84) 95 02/13/20 22:30 127/65 02/13/20 21:00 Room Air 02/13/20 20:48 99.0 62 17 127/65 (85) 95 02/13/20 17:55 60 128/62 02/13/20 16:00 98.8 60 18 128/62 (84) 95 I&O Intake and Output 02/13/20 02/14/20 19:00 07:00 Intake Total 120 ml Balance 120 ml Intake Oral 120 ml Cardiovascular: RSR Respiratory: clear Abdomen: soft, non-tender, present bowel sounds, non-distended Extremities: no tenderness, no cyanosis Laboratory Tests Test 02/14/20 07:30 White Blood Count 8.2 K/UL (4.8-10.8) Red Blood Count 3.18 M/UL (4.70-6.10) L Hemoglobin 9.7 G/DL (14.2-18.0) L Hematocrit 29.3 % (42.0-52.0) L Mean Corpuscular Volume 92 FL (80-99) Mean Corpuscular Hemoglobin 30.4 PG (27.0-31.0) Mean Corpuscular Hemoglobin Concent 33.1 G/DL (32.0-36.0) Red Cell Distribution Width 13.9 % (11.6-14.8) Platelet Count 227 K/UL (150-450) Mean Platelet Volume 5.8 FL (6.5-10.1) L Neutrophils (%) (Auto) 74.6 % (45.0-75.0) Lymphocytes (%) (Auto) 14.3 % (20.0-45.0) L Monocytes (%) (Auto) 7.9 % (1.0-10.0) Eosinophils (%) (Auto) 2.5 % (0.0-3.0) Basophils (%) (Auto) 0.8 % (0.0-2.0) Sodium Level 137 MMOL/L (136-145) Potassium Level 3.7 MMOL/L (3.5-5.1) Chloride Level 100 MMOL/L (98-107) Carbon Dioxide Level 28 MMOL/L (21-32) Anion Gap 9 mmol/L (5-15) Blood Urea Nitrogen 46 mg/dL (7-18) H Creatinine 5.7 MG/DL (0.55-1.30) H Estimat Glomerular Filtration Rate 10.4 mL/min (>60) Glucose Level 111 MG/DL (74-106) H Lactic Acid Level < 0.30 mmol/L (0.4-2.0) L Calcium Level 7.8 MG/DL (8.5-10.1) L Phosphorus Level 4.6 MG/DL (2.5-4.9) Magnesium Level 2.3 MG/DL (1.8-2.4) Total Bilirubin 1.0 MG/DL (0.2-1.0) Direct Bilirubin 0.8 MG/DL (0.0-0.3) H Aspartate Amino Transf (AST/SGOT) 19 U/L (15-37) Alanine Aminotransferase (ALT/SGPT) 20 U/L (12-78) Alkaline Phosphatase 1075 U/L (46-116) H C-Reactive Protein, Quantitative 3.0 mg/dL (0.00-0.90) H Total Protein 6.3 G/DL (6.4-8.2) L Albumin 2.3 G/DL (3.4-5.0) L Plan Problems: (1) Abdominal distension Assessment & Plan: The appendix is normal. The proximal colon is upper limits of normal caliber, gas and stool-filled. There is a small to moderate amount of ascites fluid. There is congestion of the mesenteric fat. Small bowel loops are somewhat prominent in caliber, and a few may demonstrate slight wall thickening. The distal esophagus, stomach, duodenum are unremarkable. No free intraperitoneal gas. No bowel wall pneumatosis. The colon wall thickening is markedly increased from that reported previously. The lack of IV contrast limits assessment of the solid organs. The liver appears somewhat enlarged. No definite focal abnormality. It is normal in attenuation. The gallbladder is nondistended. The wall appears edematous. No radiopaque gallstones. No biliary ductal dilatation. The pancreas is atrophic. The spleen is grossly normal. The kidneys are grossly unremarkable. No renal or ureteral calculi, hydronephrosis, or hydroureter. Bladder is nondistended. Again demonstrated is mild bladder wall thickening, similar in extent to the previous study. Again demonstrated is left hip surgical hardware. There is diffuse edema of the subcutaneous fat. This is slightly less extensive than on the prior study. Again demonstrated is what appears to be a loculated thick rimmed right pleural effusion. Atelectatic or consolidated lung is demonstrated in the right lower lobe. Groundglass opacities throughout the aerated portions of both lungs appear very similar to the prior exam. There is trace left pleural fluid as well. The heart is enlarged. There are extensive arterial calcifications. Impression: Marked rectal, descending and sigmoid colon wall thickening, consistent with colitis. Nonspecific appearance as regards etiology Ascites, also previously reported Evidence of anasarca, with in addition to the above bilateral pleural effusions, edema subcutaneous fat, and congestion of the mesentery Mild hepatomegaly, also previously reported Right pleural effusion with a thick wall, appearing similar to the previous exam of October 2018. Likely reflects a loculated/organized pleural effusion. Considerable consolidation of much of the right lower lobe. This appears similar to the previous exam. Diffuse groundglass opacity throughout much of the visualized lungs, nonspecific but may reflect pulmonary edema Cardiomegaly Apparent gallbladder wall thickening/edema. Probably an artifact of under distention and manifestation of anasarca. Acute cholecystitis cannot completely excludable, however, and consideration should be given to further workup if there is high clinical suspicion. Apparent bladder wall thickening. Probably an artifact of under distention, unchanged from the prior exam. Cystitis also possible. Other findings as noted, including left hip surgical hardware, extensive arterial calcification KUB noted resolved okay for diet bowel regimen d/c planning (2) Gastrointestinal hemorrhage Assessment & Plan: Patient with possible GI bleed he is noted to have tarry stools. Mucous stools noticed on evaluation loose. No active bleeding identified. Hemoglobin is been stable. CT reviewed patient does have a near pancolitis. No acute surgical intervention at this time. Will monitor with serial abdominal exams Consider GI consultation for procedure/colonoscopy Occult blood stool Trend labs stable no acute bleed d/c planning We will follow with examination IV antibiotics as per PCP or ID Thank you for let me participate patient's care Scope results noted adv diet path noted with ischemic colitis clinically stable and improving cont abx cont diet ppi Sukhjinder Tolbert February 14, 2020 15:05
--- NOTE | 2020-02-14 15:57 | NUR ---
DISCHARGE PLANNED: PATIENT ACCEPTED BACK TO [facility] T: [phone]~~~ FOR NURSE TO NURSE REPORT ROOM#[id number] [facility] CALLED FOR 5PM PICKUP TIME JAIME HERNANDEZ (SISTER) CALLED [facility] MADE AWARE OF TRANSFER BACK
[2020-02-14 16:00] VITALS: BP 134/66
[2020-02-14 17:22] VITALS: BP 134/66
--- NOTE | 2020-02-14 19:25 | NUR ---
NURSE NOTES: Patient discharged with [facility] via gurney. VSS. ID band removed, IV site removed. Belongings list verified.
--- NOTE | 2020-02-14 19:45 | Progress Note ---
DATE: 02/14/2020 SUBJECTIVE: This is a 54-year-old male came with the lower GI bleeding, generalized weakness, possible ischemic colitis. Patient is currently in bed, comfortable, awaiting for GI procedure. PHYSICAL EXAMINATION: VITAL SIGNS: Blood pressure 121/66, pulse 64. CHEST: Bilaterally clear. CARDIOVASCULAR: Regular rhythm. ABDOMEN: Soft. EXTREMITIES: CCE. NEUROLOGIC: The patient has generalized weakness. LABORATORY DATA: White count 8.2, hemoglobin 10, hematocrit 29. Chemistry panel, sodium 137, potassium 3.7, BUN 46, creatinine 5.7. Lactic acid 0.30. ASSESSMENT: 1. Ischemic colitis. 2. Rule out GI bleed. 3. Hypertension. 4. Urine culture growing Providencia. PLAN: Continue antibiotics. ID is on consult. Pulmonary and Nephrology is also on consult. GI is also on case. Alvaro Ruvalcaba M.D. DR: Candace JOB#: [id number] CC:
--- NOTE | 2020-02-15 13:12 | Discharge Summary ---
Discharge Summary Discharge Summary _ DATE OF ADMISSION: 02/08/2020 DATE OF DISCHARGE: 02/14/2020 DISCHARGED BY: Dr. Ruvalcaba REASON FOR ADMISSION: 54 years old male with past medical history of end-stage renal disease, on hemodialysis, hypertension, borderline diabetes, history of CVA, depression, generalized weakness, resident of longterm facility, presented for possible rectal bleeding with diarrhea , abdominal pain , nausea and vomiting. Patient also had low-grade fever. Upon evaluation vital signs were stable. Laboratory work-up revealed leukocytosis WBC 14.2, hemoglobin 9.7, hematocrit 30.3, platelet count 208. Potassium 2.9 . BUN 44, creatinine 3.7 consistent with known history of end-stage renal disease . Glucose 149. Total bilirubin 2.2, direct bilirubin 2.0 . AST 23 , ALT 24. Troponin negative, pro BNP above 35,000. EKG revealed sinus rhythm, no acute ischemic changes. Chest x-ray demonstrated cardiomegaly. Right pleural effusion. Right basilar opacity, likely infiltrate versus edema. Generalized mild interstitial congestion. CT of the abdomen and pelvis showed marked rectal descending and sigmoid colon wall thickening , consistent with colitis. Ascites. Evidence of anasarca. Mild hepatomegaly. Pleural effusion with thick wall similar to obe demonstrated in October 2018, likely reflecting a loculated/organized pleural effusion. Diffuse ground-glass opacity throughout much of the visualized lungs nonspecific , but may reflect pulmonary edema. Patient was swabbed for COVID-19 and admitted for further management. CONSULTANTS: nailing machine feeder Dr. Harrison GI specialist Dr. Don section chief Dr. Fong [facility] Dr. Tolbert [facility] COURSE: Patient admitted and initially was kept in isolation room. SARS-CoV- 2 by PCR on 02/07 came out not detected. Isolation was discontinued. Blood cultures were negative. Eliquis was initially hold secondary to GI bleeding. Patient started on GI prophylaxis with IV Protonix. Antihypertensive medications were optimized due to hypertensive urgency as per nailing machine feeder. Dialysis provided as per section chief recommendations with close monitoring of volumes, renal parameters and electrolytes. GI specialist followed. Patient undergone upper endoscopy with biopsy and colonoscopy with findings of gastritis ,status post biopsy, significant ischemic colitis in the sigmoid area status post biopsy, and internal hemorrhoids. Biopsy of gastric antrum revealed mild chronic gastritis, no H. pylori was identified. Biopsy of the sigmoid colon revealed focally necrotic colonic mucosa with changes suggestive of marked ischemic colitis. No dysplasia or malignancy. Antibiotics provided . Pathology was consistent with ischemic colitis. Patient started on clear liquid diabetic diet and was advanced as tolerated. Patient also undergone ultrasound-guided paracentesis , which yielded 2 L of ascitic fluid. Pathology of ascitic fluid revealed no evidence of malignant cells. Surgeon followed. No need for surgical intervention at this time. Antiemetic provided as needed. Antibiotic continued. Patient was able to tolerate diet. Hemoglobin and hematocrit were closely monitored with goal to keep hemoglobin above 7. Anemia work-up revealed anemia of chronic disease, ferritin 1133. Stool for occult blood was negative. Pain management was addressed as needed. Electrolytes corrected. Apixaban resumed. Hemoglobin and hematocrit remained stable : 9.7/29.3. Patient clinically stabilized and was ready for discharge to longterm facility for continuation of care. FINAL DIAGNOSES: GI hemorrhage Ischemic colitis Hypertensive kidney disease with hypertensive urgency End-stage renal disease, on dialysis History of bradyarrhythmia Anemia History of CVA Suspected COVID-19 - ruled out Status post EGD and colonoscopy 5 1 with biopsy Gastritis, status post biopsy Significant ischemic colitis in the sigmoid area, status post biopsy Internal hemorrhoids. Cirrhosis Anemia DISCHARGE MEDICATIONS: See Medication Reconciliation list. DISCHARGE INSTRUCTIONS: Patient was discharged to the longterm facility. Follow up with medical doctor at the facility. 54 years old male I have been assigned to dictate discharge summary for this account. I was not involved in the patient's management. Ashley Mccallum NP February 15, 2020 13:12
== END 2020-02-14 19:10 | DRG 393 ==
LOC: EDBD 14:19 → EDUNIT# 14:19 → EMR 14:53 → 4E 15:00 → EDBEDREQ 02-09 02:30
DX: K55.9 Vascular disorder of intestine, unspecified (principal); N18.6 End stage renal disease; I12.0 Hypertensive chronic kidney disease with stage 5 chronic kidney disease or end stage renal disease; R18.8 Other ascites; N39.0 Urinary tract infection, site not specified; K55.8 Other vascular disorders of intestine; K64.8 Other hemorrhoids; Z86.73 Personal history of transient ischemic attack (TIA), and cerebral infarction without residual deficits; F32.9 Major depressive disorder, single episode, unspecified; Z99.2 Dependence on renal dialysis; I16.0 Hypertensive urgency; K29.70 Gastritis, unspecified, without bleeding; K74.60 Unspecified cirrhosis of liver; K21.9 Gastro-esophageal reflux disease without esophagitis; Z79.01 Long term (current) use of anticoagulants; Z79.4 Long term (current) use of insulin; E87.6 Hypokalemia; R00.1 Bradycardia, unspecified; E11.9 Type 2 diabetes mellitus without complications
CPT/HCPCS: 36415; 71045; 74018; 74176; 76942; 80048; 80053; 80061; 80076; 81001; 82140; 82150; 82248; 82270; 82550; 82607; 82728; 82746; 82962; 82977; 83036; 83540; 83550; 83605; 83690; 83735; 83880; 84100; 84484; 84550; 85007; 85025; 85610; 85651; 85730; 86140; 86850; 86900; 86901; 87040; 87045; 87081; 87086; 87181; 87324; 87635; 88104; 93005; 93306; 94003; 94150; 99285; J1815